=== PATIENT | male | born 1960 | race Caucasian/White ===

== ENCOUNTER 2017-04-29 10:16 | Outpatient (RCR) | payer MEDICARE, MEDICAID, SELFPAY ==
--- NOTE | 2017-04-29 11:05 | HP.PTEVAL_ITS ---
Patient's Visit Information EMILY FERNÁNDEZ is a 57 year old M referred to Physical Therapy by Maribell ALVES with a diagnosis of CP. Date of Evaluation: 04/29/17 Physical Therapist: Chaya Vitale - Visit Plan Frequency: 1x/Week Plan: w/c evaluation - Subjective Subjective: Has had an evaluation already and they lost the paperwork so he needs to be able to do it again. Patient reports that the last time he was actually walking was 6 years ago and not I. Has always used a w/c as main mode of transportation. [employer] has been out to measure him for his chair. Patient transfers using a lift at home but would like to get back to doing them I. Does not stand for transfers. Can roll to help with assistance for hygeine. Spends 10-12 hours a day in this current w/c. He is getting sores on the left LE secondary to rubbing on the foot plate. Nursing and home health aides that come to the house. Has help 8-4 and 7-11 every day. They do all the transfers, showers, fix meals, pretty much take good care of you. Apartment that is w/c accessible- roll in shower- has a w/c accesible van that his drives. Patient has not driven in 5 plus years. Does not have pressure sores currently but is prone to them. Does have feeling and can adjust. Patient can roll himself unless he is going up hill. Goes to congregation on Sundays and back and forth to [facility] [employer]. Occasionally go to [facility] and 1x a month or 1x every 6 weeks to [facility]. Scoots his legs off the chair to use the restroom. No pain. 5'4 230lbs - Objective Posture: FH, RS. Increased kyphosis- pt slumps to the right- when asked to lock his left w/c break patient had significant difficulty righting himself to reach the break. Gait: pt is non ambulatory- has not ambulated since 2011 (therapy 5 steps with // bars) w/c has always been primary mode of transportation. Transfers: lift at home- unable to stand. ROM: Trunk: WFL Hip: WFL Knee: right : wfl Left 20-100 degrees ankle: DF: left 5 degrees from neutral, right: neutral. Strength: Core: poor LE: 2+/5 throughout hip/ankle/knee- trace amount but not functional. Left leg doesnt extend- more movement in the left hip. can get flat- - Goals Goal 1:: Patient will be I with w/c Goal Time Frame: 4-6 Weeks - Rehabilitation Potential Physical Therapy Diagnosis: Patient presents with hypmobility- his chair is unsafe and does not fit him anymore- would be appropriate for a new w/c - Anticipated Interventions Assistive Devices: Wheelchair Thank you for the opportunity to evaluate your patient. For Medicare and Medicare HMO plans, please review the plan of care and approve it. It will need to be FAXED BACK to us at [phone] for Medicare purposes. Please let me know if there are questions or concerns regarding this plan of care. Physician Signature: Date:
--- NOTE | 2017-06-01 10:58 | HP.PTDCSUM ---
HP - PT D/C Summary It has been my pleasure to treat EMILY FERNÁNDEZ under orders from DR.KFEARO Lizzie for the diagnosis of CP for a total of 1 visit(s). Discharge Date: Please see the following information for a summary of their discharge status. - Goals Goal 1:: Patient will be I with w/c Goal Progress: Progressing - Plan Plan: w/c evaluation - D/C Information If there are questions or concerns regarding this patient's physical therapy, please feel free to call me at [phone]. Thank you for the referral of this patient. Sincerely, Chaya Vitale
== END 2017-04-29 19:00 | disposition home or self-care (01) ==
LOC: PT 10:16
PROVIDERS: Family Provider Internal Medicine; PCP Internal Medicine; Visit Provider Internal Medicine
DX: G80.9 Cerebral palsy, unspecified (principal)
CPT/HCPCS: 97162; G8978

== ENCOUNTER 2017-08-18 16:16 | Inpatient (IN) | payer MEDICARE, MEDICAID, SELFPAY ==
[2017-08-18] VITALS (9 sets, daily range): BP systolic 106–121; BP diastolic 55–59; PULSE 102–133; RESP 18–28; TEMP 36.9–39.2; O2SAT 91–96; BMI 48.1; BMI 46.6
--- NOTE | 2017-08-18 16:52 | RAD_ITS ---
STUDY: X-RAY CHEST REASON FOR EXAM: Male, 57 years old. Fever and shortness of breath TECHNIQUE: Single frontal view of the chest. COMPARISON: November 25, 2015 FINDINGS: Lungs are clear except for bibasilar subsegmental atelectasis. There is no demonstrated pleural abnormality. Normal size heart. Normal mediastinum and cassidy. Normal visualized pulmonary arteries. Normal visualized aortic arch and descending thoracic aorta. Normal visualized thoracic spine. Normal visualized ribs, clavicles, and shoulders. There is no demonstrated abnormality of the visualized soft tissue structures of the upper abdomen. RAD/Chest 1 View (Portable) IMPRESSION: Bibasilar subsegmental atelectasis Electronically Signed: Cameron Singh MD at 17:35 EDT , Service support ,
--- NOTE | 2017-08-18 16:52 | EKG12_ITS ---
Test Reason : UTI Blood Pressure : / mmHG Vent. Rate : 122 BPM Atrial Rate : 122 BPM P-R Int : 122 ms QRS Dur : 072 ms QT Int : 298 ms P-R-T Axes : 019 076 013 degrees QTc Int : 424 ms Sinus tachycardia Low voltage QRS Borderline ECG Confirmed by LATA BANKS MD ([id number]), content editor HANNAH QUINTANA ([id number]) on 08/21/2017 9:07:26 AM Referred By: NANI Confirmed By:LATA BANKS MD
[2017-08-18 17:15] LABS: Absolute Lymphocyte Count 0.47 X10^3/ul (0.83-4.51); Absolute Neutrophil Count 14.7 X10^3/uL (2.0-7.7); Basophil# 0.01 X10^3/uL; Basophil% 0.1 % (0-1); Hematocrit 43.5 % (40-54); Lymphocyte # 0.47 X10^3/ul (4.0); Lymphocyte % 2.9 % (19-41); Mean Corp Hgb Conc 34.5 g/gl (32-36); Mean Corpuscular Volume 89.9 fL (80-94); Monocyte# 0.78 X10^3/uL; Monocyte% 4.9 % (0-10); Neutrophil # 14.65 X10^3/uL (2.7-7.7); Neutrophil % 91.9 % (47-70); Platelet Count 131 K/mm3 (150-450); RBC Distribution Width CV 16.7 % (11.6-14.6); RBC Distribution Width SD 53.3 fl (35.1-43.9); Red Blood Count 4.84 M/mm3 (4.6-6.2); White Blood Count 15.9 K/mm3 (4.4-11.0)
[2017-08-18 17:16] LABS: International Normalized Ratio 1.8; Prothrombin Time (Protime)PT. 21.3 SECONDS (11.7-14.9)
[2017-08-18 17:17] LABS: Partial Thromboplast Time 46.2 Seconds (24.1-36.2)
[2017-08-18 17:23] LABS: ALB/GLOB Ratio 0.8 RATIO (0.9-2.4); AST(SGOT) 21 U/L (15-37); Alanine Aminotransfer ALT/SGPT 33 U/L (16-61); Albumin, Serum 3.1 g/dL (3.2-5.0); Alkaline Phosphatase 67 U/L (45-117); Anion Gap 10 (5-15); BUN 11 mg/dL (7-18); BUN/Creat Ratio 12.4 RATIO (10-20); Calcium,Total 8.6 mg/dL (8.5-10.1); Chloride 109 mmol/L (98-107); Creatinine, Serum 0.89 mg/dL (0.70-1.30); Differential Indicated SCAN CRITERIA MET; EST Glomerular Filtration Rate 94 mL/min (>60); Est Glom Filt Rate - Afr Amer 114 mL/min (>60); Estimated Creatinine Clearance 78.53 ml/min; Globulin 3.9 g/dL (2.2-4.2); Glucose 111 mg/dL (74-106); POSITIVE COUNT NO; POSITIVE DIFFERENTIAL YES; POSITIVE MORPHOLOGY NO; Potassium 3.4 mmol/L (3.5-5.1); Sodium Level 143 mmol/L (136-145)
[2017-08-18] MEDS: 0.9% Normal Saline 1,000 ML 250 ML IV (17:35)
--- NOTE | 2017-08-18 17:35 | ED.RN ---
pt lactic 2.5 dr matson
[2017-08-18 17:40] LABS: Lactic Acid 2.5 mmol/L (0.4-2.0)
[2017-08-18 17:45] LABS: Color, Urine Yellow (Yellow); Glucose, Dipstick Normal (Normal); Ketone-Dipstick 15 mg/dl (Negative); Leukocyte Esterase-Dipstick 500 /ul (Negative); Mucous, Urine 0 SEEN /hpf (<or=2+); Nitrite-Dipstick Positive (Negative); Occult Blood-Urine 150 /ul (Negative); Protein-Dipstick 30 mg/dl (Negative); Urine Bilirubin Dipstick Negative (Negative); Urine Clarity Cloudy (Clear); Urine Urobilinogen 4 mg/dl (Normal); Urine pH 6.5 (5.0 - 8.0)
[2017-08-18 17:48] LABS: Differential Comment SCANNED
[2017-08-18 17:53] LABS: Bacteria 3+ /hpf (None Seen); Red Blood Cells-Urine 10-25 SEEN /hpf (0-5); Squamous Epithelial Cells - UA 5-10 SEEN /hpf (0-5); White Blood Cells >100 SEEN /hpf (0-5)
[2017-08-18 17:54] LABS: Amorphous Sediment 1+ URATE
[2017-08-18] MEDS: Ceftriaxone 1 GM/50 mL Premix x1 IV (18:19)
--- NOTE | 2017-08-18 19:02 | ED.VISSUMM ---
- ER Visit Summary Date of Service: 08/18/17 Chief Complaint: Fever weakness, cough shortness of breath History of Present Illness: The patient is a 57 M with the above complaints that started earlier in the day. He was seen by his PCP did not feel so bad and was diagnosed with a urinary tract infection. The shortness of breath and cough started after that. No abdominal pain. No back pain. No neck pain. This gentleman has cerebral palsy and is bedbound. Physical Examination: Appears in some distress, slightly diaphoretic. Cerebral palsy features. Regular rate. Tachycardic. He has coarse bibasilar breath sounds. He has a soft obese abdomen. He has no skin rash. He has a supple neck. Emergency Department Course and Treatment: Patient is found to have a urinary tract infection with a fever this leads me to believe that this is pyelonephritis he has no flank pain to indicate kidney stones. Chest x-ray does not show pneumonia but because of the hypoxia and cough I did treat him for community acquired pneumonia. His tachycardia has slightly improved. I will admit him for further workup as well as IV antibiotics. Disposition: Admit in improved condition Impression: Pyelonephritis This note was generated with [employer] dictation software. It may contain incorrect words, spelling, and punctuation that were not noted in review of the chart prior to signing ED Disposition - Plan for ED Patient: Chief Complaint: Shortness of Breath
--- NOTE | 2017-08-18 20:39 | PCM.HP.STD ---
Problem List (1) Supratherapeutic INR Status: Resolved (2) Hypomagnesemia Status: Resolved (3) Hypophosphatemia Status: Resolved (4) HTN (hypertension) Status: Chronic (5) Recurrent deep venous thrombosis Status: Chronic (6) Hyperlipidemia Status: Chronic (7) Pulmonary embolism Status: Chronic (8) Status post laparoscopic cholecystectomy Status: Chronic History of Present Illness Date of Admission: 08/18/17 Chief Complaint: Fever and generalized weakness The patient is a 57 year old M with past medical history of cerebral palsy, recurrent DVT and PEs, essential hypertension, urinary tract infections who was diagnosed with acute cystitis as an outpatient by his primary care physician and prescribed Macrobid but he did not improve he presented to the emergency room today due to fever and generalized weakness , he also reported shortness of breath and cough. Repeat urinalysis in the ED revealed significant pyuria consistent with urinary tract infection, he was noted to be hypoxic with pulse oximetry in the lower 90s at rest chest x-ray revealed bilateral atelectasis but no evidence of pneumonia or congestive heart failure or pleural effusion. He denies any chest pain, hemoptysis, rapid heartbeat or dizziness. Given his cough and mild hypoxia as well as mild tachycardia the patient was given empiric treatment of IV Rocephin and Zithromax for possible pneumonia. Past Medical History Past Medical History (Chronic Problems): Chronic Problems Sleep-disordered breathing (Chronic) UTI (urinary tract infection) (Chronic) Cerebral palsy (Chronic) HTN (hypertension) (Chronic) Recurrent deep venous thrombosis (Chronic) Hyperlipidemia (Chronic) Pulmonary embolism (Chronic) Status post laparoscopic cholecystectomy (Chronic) Allergies No Known Allergies Allergy (Verified 08/18/17 19:52) Home Medications: Ambulatory Orders Medication Instructions Recorded Atenolol [Tenormin (beta kartik)] 25 mg PO BID 08/12/14 Baclofen 40 mg PO BID 08/12/14 Ergocalciferol [Vitamin D] 50,000 unit PO WE 08/12/14 Omeprazole [Prilosec] 40 mg PO DAILY 08/12/14 Pravastatin [Pravachol] 40 mg PO QHS 08/12/14 Lisinopril [Zestril] 40 mg PO BID 08/01/15 Albuterol Inhaler [Ventolin Hfa] 2 puff INHALATION Q4H PRN PRN #1 08/31/15 inhaler Nystatin [Mycostatin] 1 applic TOPICAL PRN PRN 09/14/15 Tizanidine HCl 4 mg PO BID PRN PRN 09/15/15 Acetaminophen [Tylenol Tablet] 650 mg PO Q4H PRN PRN #0 tablet 11/29/15 Tamsulosin HCl [Flomax] 0.4 mg PO DAILY@1730 01/11/17 Warfarin [Coumadin] 6 mg PO SUTUTHSA 01/11/17 Citalopram [Celexa] 5 mg PO QHS 08/18/17 Desoximetasone 0.25% [Topicort Crm 1 applic TOPICAL DAILY PRN PRN 08/18/17 0.25%] Nitrofurantoin Macrocrystals 100 mg PO BID 08/18/17 [Macrobid] Triamcinolone 0.5% Cream [Kenalog] 1 applicatio TOPICAL DAILY PRN PRN 08/18/17 Warfarin [Coumadin (PBKC)] 5 mg PO MOWEFR 08/18/17 Surgical History: appendectomy, - - Multiple hip and bilateral extremity surgeries for contractures because of cerebral palsy. Psychiatric History: No pertinent psych hx Smoking Status: Former smoker - *Family History Maternal History Items: No pertinent history Paternal History Items: No pertinent history Review of Systems Comment: All Systems were reviewed with pertinent positives mentioned in the HPI above. VTE Information - Inpt Only VTE Present on Admission: No VTE Mechan Device Prophylaxis: SCD's VTE Pharm Prophylaxis ordered?: Yes - Physical Exam General: Alert, Oriented x3 HEENT: Atraumatic Neck: Supple, No JVD Lungs: Clear to auscultation Cardiovascular: Regular rate, Normal S1, Normal S2 Abdomen: Bowel Sounds Present, Non Tender, Non-Distended Extremities: No edema Vital Signs Temp Pulse Resp BP Pulse Ox 98.4 F 105 H 18 121/57 H 96 08/18/17 19:59 08/18/17 19:59 08/18/17 19:59 08/18/17 19:59 08/18/17 19:59 Oxygen Flow Rate (L/min) 2 Oxygen Delivery Method Room Air Weight: 123.2 kg Body Mass Index (BMI) 46.6 Assessment/Plan All Active Problems Hypokalemia (Acute) Hyponatremia (Acute) Supratherapeutic INR (Resolved) Hypomagnesemia (Resolved) Hypophosphatemia (Resolved) Acute delirium (Acute) Rhinitis (Acute) Dehydration (Acute) Sepsis (Acute) Clostridium difficile enterocolitis (Acute) 1. Acute cystitis; place him on IV Rocephin and follow urine cultures He has had recurrent cystitis , I will obtain a PSA and a urogenital ultrasound to rule out any anatomic abnormality. 2. Hypoxia; giving his tachycardia and his history of PE subtherapeutic INR and obtain CT angiogram of the chest to rule out an acute PE. 3. Essential hypertension; we will restart his atenolol. 4. GERD; he is on a PPI. 5. ? Pneumonia; I see no evidence of pneumonia at this time. Will discontinue community-acquired pathway antibiotics. Code Visit Inpatient E&M: 66251 Init Hosp L3
--- NOTE | 2017-08-18 20:52 | CT_ITS ---
STUDY: CTA CHEST REASON FOR EXAM: Male, 57 years old. Chest x-ray from today. And CTA chest August 16, 2014 RADIATION DOSAGE (If Supplied By Facility): CTDIvol = ( 25.04 ) mGy, DLP = ( 839.19 ) mGycm TECHNIQUE: The examination was performed with the intravenous administration of 100ML ml of Isovue 370 contrast material. Post-processing of the angiographic images was performed, with multiplanar reformation and 3D reconstruction. Individualized dose optimization techniques were used for this CT. COMPARISON: August 16, 2014 FINDINGS: Normal enhancement of the main pulmonary artery and right and left pulmonary arteries. Normal enhancement of the bilateral peripheral pulmonary arteries. There is no demonstrated pulmonary embolism. Normal thoracic aorta and visualized great vessels. There is no demonstrated aortic dissection. Normal heart and pericardium. Mild cardiomegaly. Normal mediastinum. Normal hilar regions. Normal visualized trachea and bronchi. The lungs are well expanded. Normal pulmonary parenchyma. Normal pleura. Normal chest wall structures. Normal osseous structures. Normal visualized upper abdomen. CT/CTA Chest W/WO Contrast IMPRESSION: Normal CTA chest examination, without a demonstrated pulmonary embolism or arterial dissection. Electronically Signed: Cameron Singh MD at 23:07 EDT , Service support ,
--- NOTE | 2017-08-18 20:55 | US_ITS ---
STUDY: RENAL ULTRASOUND - COMPLETE REASON FOR EXAM: Male, 57 years old. Left flank pain TECHNIQUE: Ultrasound evaluation of the kidneys was performed with real-time and static martinez-scale imaging. COMPARISON: November 21, 2015 FINDINGS: RIGHT KIDNEY: Normal location of the right kidney, which is normal in size. The right kidney measures 11.4 cm. There is a normal cortex of the right kidney. The renal cortex measures 1.5 cm. There is no right renal mass or cyst. There are no right renal calculi. There is no right hydronephrosis. DISTAL RIGHT URETER: There is non-visualization of the distal right ureter. There is no demonstrated right ureterovesical junction calculus. There is a non- visualized right ureteral jet. LEFT KIDNEY: Normal location of the left kidney, which is normal in size. The left kidney measures 11.8 cm. There is a normal cortex of the left kidney. The renal cortex measures 1.8 cm. There is no left renal mass or cyst. There are no left renal calculi. There is no left hydronephrosis. DISTAL LEFT URETER: There is non-visualization of the distal left ureter. There is no demonstrated left ureterovesical junction calculus. There is a non- visualized left ureteral jet. BLADDER: The distended urinary bladder has a volume of 190 ml. There is a normal wall thickness of the distended urinary bladder. There is no demonstrated mass within the urinary bladder. There are no demonstrated bladder calculi. US/Kidney and Bladder IMPRESSION: Normal ultrasound of the kidneys and urinary bladder. Electronically Signed: Cameron Singh MD at 22:12 EDT , Service support ,
[2017-08-18 21:04] LABS: Reflex Lactate? Y
[2017-08-18 22:04] LABS: Lactic Acid 1.3 mmol/L (0.4-2.0)
--- NOTE | 2017-08-18 22:05 | NURSING ---
Pt requests to not have HS meds until after 23:00.
[2017-08-18] MEDS: Tamsulosin HCl 0.4 MG Capsule PO (23:38)
[2017-08-18] MEDS: Lisinopril 20 MG Tablet 40 MG PO (23:38)
[2017-08-18] MEDS: Baclofen 10 MG Tablet 40 MG PO (23:39)
[2017-08-18] MEDS: Pravastatin 40 MG Tablet PO (23:39)
[2017-08-18] MEDS: Citalopram 10 MG Tablet 5 MG PO (23:39)
[2017-08-18] MEDS: Atenolol 25 MG Tablet PO (23:40)
[2017-08-19] VITALS (12 sets, daily range): BP systolic 125–147; BP diastolic 65–92; PULSE 91–104; RESP 16–22; TEMP 36.8–37.4; O2SAT 95–97
[2017-08-19] MEDS: 0.9% Normal Saline 1,000 ML 250 ML IV (00:49)
[2017-08-19 05:45] LABS: International Normalized Ratio 1.8; Prothrombin Time (Protime)PT. 21.3 SECONDS (11.7-14.9)
[2017-08-19 05:55] LABS: Anion Gap 9 (5-15); BUN 7 mg/dL (7-18); BUN/Creat Ratio 11.9 RATIO (10-20); Calcium,Total 8.2 mg/dL (8.5-10.1); Chloride 111 mmol/L (98-107); Creatinine, Serum 0.59 mg/dL (0.70-1.30); EST Glomerular Filtration Rate 152 mL/min (>60); Est Glom Filt Rate - Afr Amer 184 mL/min (>60); Estimated Creatinine Clearance 118.46 ml/min; Glucose 104 mg/dL (74-106); Potassium 3.9 mmol/L (3.5-5.1); Sodium Level 143 mmol/L (136-145)
[2017-08-19] MEDS: 0.9% Normal Saline 1,000 ML 100 ML IV ×2 (10:21→18:46)
[2017-08-19] MEDS: Baclofen 10 MG Tablet 40 MG PO ×2 (10:22→22:59)
[2017-08-19] MEDS: Pantoprazole Sodium 40 MG Tablet PO (10:23)
[2017-08-19] MEDS: Atenolol 25 MG Tablet PO ×2 (10:23→22:59)
[2017-08-19] MEDS: Lisinopril 20 MG Tablet 40 MG PO ×2 (10:23→22:59)
[2017-08-19] MEDS: Ceftriaxone 1 GM/50 ML BAG IV (10:51)
--- NOTE | 2017-08-19 11:13 | CASEMGMT ---
Face to Face with patient for initial transition planning/care coordination assessment. RN TEJINDER introduced self and role at [facility], pt voices understanding and consents to assessment at this time. Pt is sitting up in bed in no distress at this time. Pt is A/O x4 at this time and answers all questions appropriately at this time. Care providers, pharmacy, and demographics verified. See attached link. Pt voices no further concerns/needs at this time. Advised pt to ask for CM if any further questions/concerns/needs arise, voices understanding. CM to follow for any further discharge planning/needs. PLAN: [place] [facility]
--- NOTE | 2017-08-19 13:44 | PCM.PROGNOTE ---
<Bonnie Sanders - Last Filed: 08/19/17 14:10> Subjective: Patient seen and examined. No acute events overnight. Denies fever, chills. Denies nausea, vomiting. Denies dysuria, flank pain. Denies further shortness of breath. No other complaints at this time. - Physical Exam General: Alert, Oriented x3, Cooperative, No apparent distress HEENT: Atraumatic, PERRLA, EOMI, Normocephalic Neck: Supple, No JVD, Negative Carotid Bruits Lungs: Clear to auscultation, Diminished Cardiovascular: Regular rate, Regular Rhythm, Normal S1, Normal S2, No murmurs Abdomen: Bowel Sounds Present, Soft, Non Tender, Non-Distended, Obese Extremities: No clubbing, No cyanosis, Edema - Chronic lymphedema bilateral lower extremities Skin: No rashes, No breakdown Musculoskeletal: No Tenderness to Palpation of Joints or Extremities Neurological: Cranial nerves II-XII grossly intact, Neuro grossly intact Psych/Mental Status: Normal Affect, Appropriate Vital Signs Temp Pulse Resp BP Pulse Ox 98.2 F 103 H 16 131/73 H 95 08/19/17 10:20 08/19/17 11:00 08/19/17 10:20 08/19/17 10:20 08/19/17 10:20 Oxygen Flow Rate (L/min) 2 Oxygen Delivery Method Room Air Weight: 123.2 kg Body Mass Index (BMI) 46.6 Intake and Output for Last 24 Hours 08/17/17 08/18/17 08/19/17 23:59 23:59 23:59 Intake Total 1339 / 1339 1764 / 1764 Output Total 450 / 450 1050 / 1050 Balance 889 / 889 714 / 714 Laboratory Tests Past 24 Hrs 08/18/17 08/19/17 08/19/17 21:28 05:20 05:20 PT 21.3 H INR 1.8 Sodium 143 Potassium 3.9 Chloride 111 H Carbon Dioxide 23.0 Anion Gap 9 BUN 7 Creatinine 0.59 L Estim Creat Clear Calc 118.46 Est GFR (MDRD) Af Amer 184 Est GFR (MDRD) Non-Af 152 BUN/Creatinine Ratio 11.9 Glucose 104 Lactic Acid 1.3 Calcium 8.2 L Medical Necessity - Tobacco Use Smoking Status: Former smoker Assessment/Plan All Active Problems Hypokalemia (Acute) Hyponatremia (Acute) Supratherapeutic INR (Resolved) Hypomagnesemia (Resolved) Hypophosphatemia (Resolved) Acute delirium (Acute) Rhinitis (Acute) Dehydration (Acute) Sepsis (Acute) Clostridium difficile enterocolitis (Acute) Patient is a 57-year-old male admitted 08/18/2017 due to fever, generalized weakness. He has a past medical history of cerebral palsy, recurrent DVT/PE, hypertension, recurrent UTI, hyperlipidemia, BPH, GERD, depression, history of C. difficile. 1. Severe sepsis, present on admission secondary to acute suspected gram-negative cystitis, failed outpatient antibiotic therapy with Macrobid-associated gram-negative bacteremia. (Tachycardia, leukocytosis, lactic acid 2.5, fever 102.6 on admission) urinalysis positive. Obtain urine culture, not sent on admission. Previous urine cultures positive for ESBL klebsiella pneumoniae and Pseudomonas. Continue IV Rocephin. Patient's PSA is elevated at 15.7. She has been seen by infectious disease, Dr. odell in 2016. Klebsiella thought to be possibly secondary to colonization at that time. Patient also states he has followed up with urology as outpatient in the past. Recommend follow-up with urology at discharge regarding elevated PSA and recurrent UTIs. Renal ultrasound completed which showed normal ultrasound of the kidneys and urinary bladder. 2. Shortness of breath-CTA of chest without evidence of pulmonary embolism or arterial dissection. Pneumonia ruled out. Patient denies further shortness of breath. 3. History of severe C. difficile colitis in 2016 following antibiotic treatment for UTI. 4. Physical debility secondary to cerebral palsy- PT/OT. Patient is wheelchair-bound. Has 8 services at home and denies further needs. 5. Chronic lymphedema-Quique wrap bilateral lower extremities. Patient states he has lymphedema pumps at home he uses 3 times daily. 6. Hypertension-stable, continue home lisinopril, atenolol regimen. 7. Hyperlipidemia-continue statin. 8. BPH-continue home Flomax regimen. 9. GERD-continue PPI. 10. Depression-continue home Celexa regimen. 11. History of DVT/PE-INR currently subtherapeutic. 12. Morbid obesity-nutrition consult. Encourage diet modifications. DVT prophylaxis-Coumadin. This patient was seen by CARLOS Bucio under the supervision of Dr. Colbert. <Michel Colbert - Last Filed: 08/19/17 14:24> - Physical Exam General: Alert, No apparent distress HEENT: Atraumatic Lungs: Clear to auscultation, Normal air movement, No rhonchi, No wheeze Cardiovascular: Regular rate, Regular Rhythm, Normal S1, Normal S2, No murmurs Abdomen: Bowel Sounds Present, Soft, Non Tender, Non-Distended Extremities: No clubbing, No cyanosis Psych/Mental Status: Normal Affect, Appropriate Vital Signs Temp Pulse Resp BP Pulse Ox 36.8 C 103 H 16 131/73 H 95 08/19/17 10:20 08/19/17 11:00 08/19/17 10:20 08/19/17 10:20 08/19/17 10:20 Oxygen Flow Rate (L/min) 2 Oxygen Delivery Method Room Air Weight: 123.2 kg Body Mass Index (BMI) 46.6 Intake and Output for Last 24 Hours 08/17/17 08/18/17 08/19/17 23:59 23:59 23:59 Intake Total 1339 / 1339 1764 / 1764 Output Total 450 / 450 1050 / 1050 Balance 889 / 889 714 / 714 Laboratory Tests Past 24 Hrs 08/18/17 08/19/17 08/19/17 21:28 05:20 05:20 PT 21.3 H INR 1.8 Sodium 143 Potassium 3.9 Chloride 111 H Carbon Dioxide 23.0 Anion Gap 9 BUN 7 Creatinine 0.59 L Estim Creat Clear Calc 118.46 Est GFR (MDRD) Af Amer 184 Est GFR (MDRD) Non-Af 152 BUN/Creatinine Ratio 11.9 Glucose 104 Lactic Acid 1.3 Calcium 8.2 L Assessment/Plan Patient seen and examined independently. Data reviewed. I agree with the above note by the nurse practitioner. 1. Severe sepsis Present on admission. Due to UTI and bacteremia Lactic acidosis resolved 2. UTI Patient has a urinary tract infections 3-4 times per year. Last hospitalized for urinary tract infection about 2 years ago. Patient has had a history of drug-resistant organisms but seems to be improving with Rocephin at this time. Urine culture was not done initially has been ordered may come back negative given the previous antibiotic exposure he has had thus far during this admission Patient had been seeing a urologist before but that urologist has moved away and has not followed up in years. I recommend to get reestablished with the urologist an anatomical reason for having frequent urinary tract infections. Patient does not self catheterize nor use a Sales catheter and states that he feels that he completely voids his bladder when he urinates. 3. Bacteremia Preliminary showing gram-negative didi. Presumably is due to the patient's urinary tract infection Repeat blood cultures have been ordered Code Visit Inpatient E&M: 34174 Subs Hosp L2
--- NOTE | 2017-08-19 14:08 | PN_ITS ---
<Bonnie Sanders - Last Filed: 08/19/17 14:10> Subjective: Patient seen and examined. No acute events overnight. Denies fever, chills. Denies nausea, vomiting. Denies dysuria, flank pain. Denies further shortness of breath. No other complaints at this time. - Physical Exam General: Alert, Oriented x3, Cooperative, No apparent distress HEENT: Atraumatic, PERRLA, EOMI, Normocephalic Neck: Supple, No JVD, Negative Carotid Bruits Lungs: Clear to auscultation, Diminished Cardiovascular: Regular rate, Regular Rhythm, Normal S1, Normal S2, No murmurs Abdomen: Bowel Sounds Present, Soft, Non Tender, Non-Distended, Obese Extremities: No clubbing, No cyanosis, Edema - Chronic lymphedema bilateral lower extremities Skin: No rashes, No breakdown Musculoskeletal: No Tenderness to Palpation of Joints or Extremities Neurological: Cranial nerves II-XII grossly intact, Neuro grossly intact Psych/Mental Status: Normal Affect, Appropriate Vital Signs Temp Pulse Resp BP Pulse Ox 98.2 F 103 H 16 131/73 H 95 08/19/17 10:20 08/19/17 11:00 08/19/17 10:20 08/19/17 10:20 08/19/17 10:20 Oxygen Flow Rate (L/min) 2 Oxygen Delivery Method Room Air Weight: 123.2 kg Body Mass Index (BMI) 46.6 Intake and Output for Last 24 Hours 08/17/17 08/18/17 08/19/17 23:59 23:59 23:59 Intake Total 1339 / 1339 1764 / 1764 Output Total 450 / 450 1050 / 1050 Balance 889 / 889 714 / 714 Laboratory Tests Past 24 Hrs 08/18/17 08/19/17 08/19/17 21:28 05:20 05:20 PT 21.3 H INR 1.8 Sodium 143 Potassium 3.9 Chloride 111 H Carbon Dioxide 23.0 Anion Gap 9 BUN 7 Creatinine 0.59 L Estim Creat Clear Calc 118.46 Est GFR (MDRD) Af Amer 184 Est GFR (MDRD) Non-Af 152 BUN/Creatinine Ratio 11.9 Glucose 104 Lactic Acid 1.3 Calcium 8.2 L Medical Necessity - Tobacco Use Smoking Status: Former smoker Assessment/Plan All Active Problems Hypokalemia (Acute) Hyponatremia (Acute) Supratherapeutic INR (Resolved) Hypomagnesemia (Resolved) Hypophosphatemia (Resolved) Acute delirium (Acute) Rhinitis (Acute) Dehydration (Acute) Sepsis (Acute) Clostridium difficile enterocolitis (Acute) Patient is a 57-year-old male admitted 08/18/2017 due to fever, generalized weakness. He has a past medical history of cerebral palsy, recurrent DVT/PE, hypertension, recurrent UTI, hyperlipidemia, BPH, GERD, depression, history of C. difficile. 1. Severe sepsis, present on admission secondary to acute suspected gram- negative cystitis, failed outpatient antibiotic therapy with Macrobid- associated gram-negative bacteremia. (Tachycardia, leukocytosis, lactic acid 2.5 , fever 102.6 on admission) urinalysis positive. Obtain urine culture, not sent on admission. Previous urine cultures positive for ESBL klebsiella pneumoniae and Pseudomonas. Continue IV Rocephin. Patient's PSA is elevated at 15.7. She has been seen by infectious disease, Dr. odell in 2016. Klebsiella thought to be possibly secondary to colonization at that time. Patient also states he has followed up with urology as outpatient in the past. Recommend follow-up with urology at discharge regarding elevated PSA and recurrent UTIs. Renal ultrasound completed which showed normal ultrasound of the kidneys and urinary bladder. 2. Shortness of breath-CTA of chest without evidence of pulmonary embolism or arterial dissection. Pneumonia ruled out. Patient denies further shortness of breath. 3. History of severe C. difficile colitis in 2016 following antibiotic treatment for UTI. 4. Physical debility secondary to cerebral palsy- PT/OT. Patient is wheelchair- bound. Has 8 services at home and denies further needs. 5. Chronic lymphedema-Quique wrap bilateral lower extremities. Patient states he has lymphedema pumps at home he uses 3 times daily. 6. Hypertension-stable, continue home lisinopril, atenolol regimen. 7. Hyperlipidemia-continue statin. 8. BPH-continue home Flomax regimen. 9. GERD-continue PPI. 10. Depression-continue home Celexa regimen. 11. History of DVT/PE-INR currently subtherapeutic. 12. Morbid obesity-nutrition consult. Encourage diet modifications. DVT prophylaxis-Coumadin. This patient was seen by CARLOS Bucio under the supervision of Dr. Colbert. <Michel Colbert - Last Filed: 08/19/17 14:24> - Physical Exam General: Alert, No apparent distress HEENT: Atraumatic Lungs: Clear to auscultation, Normal air movement, No rhonchi, No wheeze Cardiovascular: Regular rate, Regular Rhythm, Normal S1, Normal S2, No murmurs Abdomen: Bowel Sounds Present, Soft, Non Tender, Non-Distended Extremities: No clubbing, No cyanosis Psych/Mental Status: Normal Affect, Appropriate Vital Signs Temp Pulse Resp BP Pulse Ox 36.8 C 103 H 16 131/73 H 95 08/19/17 10:20 08/19/17 11:00 08/19/17 10:20 08/19/17 10:20 08/19/17 10:20 Oxygen Flow Rate (L/min) 2 Oxygen Delivery Method Room Air Weight: 123.2 kg Body Mass Index (BMI) 46.6 Intake and Output for Last 24 Hours 08/17/17 08/18/17 08/19/17 23:59 23:59 23:59 Intake Total 1339 / 1339 1764 / 1764 Output Total 450 / 450 1050 / 1050 Balance 889 / 889 714 / 714 Laboratory Tests Past 24 Hrs 08/18/17 08/19/17 08/19/17 21:28 05:20 05:20 PT 21.3 H INR 1.8 Sodium 143 Potassium 3.9 Chloride 111 H Carbon Dioxide 23.0 Anion Gap 9 BUN 7 Creatinine 0.59 L Estim Creat Clear Calc 118.46 Est GFR (MDRD) Af Amer 184 Est GFR (MDRD) Non-Af 152 BUN/Creatinine Ratio 11.9 Glucose 104 Lactic Acid 1.3 Calcium 8.2 L Assessment/Plan Patient seen and examined independently. Data reviewed. I agree with the above note by the nurse practitioner. 1. Severe sepsis * Present on admission. Due to UTI and bacteremia * Lactic acidosis resolved 2. UTI * Patient has a urinary tract infections 3-4 times per year. Last hospitalized for urinary tract infection about 2 years ago. * Patient has had a history of drug-resistant organisms but seems to be improving with Rocephin at this time. * Urine culture was not done initially has been ordered may come back negative given the previous antibiotic exposure he has had thus far during this admission * Patient had been seeing a urologist before but that urologist has moved away and has not followed up in years. I recommend to get reestablished with the urologist an anatomical reason for having frequent urinary tract infections. Patient does not self catheterize nor use a Sales catheter and states that he feels that he completely voids his bladder when he urinates. 3. Bacteremia * Preliminary showing gram-negative didi. Presumably is due to the patient's urinary tract infection * Repeat blood cultures have been ordered Code Visit Inpatient E&M: 11692 Subs Hosp L2
--- NOTE | 2017-08-19 15:56 | CASEMGMT ---
BREANA called patient's Garage Door Technician, Jackie Nelson and left her a voice mail letting her know that patient will be going home at d/c, but not today. Valeri REYNOSO
[2017-08-19] MEDS: Tamsulosin HCl 0.4 MG Capsule PO (16:27)
[2017-08-19] MEDS: Pravastatin 40 MG Tablet PO (22:59)
[2017-08-19] MEDS: Citalopram 10 MG Tablet 5 MG PO (22:59)
[2017-08-20] VITALS (10 sets, daily range): BP systolic 115–145; BP diastolic 61–83; PULSE 66–94; RESP 18–20; TEMP 36.9–37.5; O2SAT 93–97
[2017-08-20] MEDS: Lactulose 20 GM/30 ML UDC 30 GM PO (00:13)
[2017-08-20] MEDS: 0.9% Normal Saline 1,000 ML 100 ML IV ×2 (02:17→12:04)
[2017-08-20] MEDS: guaiFENesin Dm 10 ML UDC PO ×2 (04:59→15:27)
[2017-08-20 05:50] LABS: Hematocrit 40.9 % (40-54); Mean Corp Hgb Conc 34.2 g/gl (32-36); Mean Corpuscular Hgb 31.1 pg (27.0-32.0); Mean Corpuscular Volume 90.9 fL (80-94); Platelet Count 130 K/mm3 (150-450); RBC Distribution Width CV 16.7 % (11.6-14.6); White Blood Count 8.2 K/mm3 (4.4-11.0)
[2017-08-20 06:21] LABS: Scan Indicated on CBC? Y/N NO
[2017-08-20 06:56] LABS: International Normalized Ratio 1.7; Prothrombin Time (Protime)PT. 20.2 SECONDS (11.7-14.9)
[2017-08-20] MEDS: Lisinopril 20 MG Tablet 40 MG PO ×2 (09:53→22:33)
[2017-08-20] MEDS: Baclofen 10 MG Tablet 40 MG PO ×2 (09:53→22:33)
[2017-08-20] MEDS: Ceftriaxone 1 GM/50 ML BAG IV (09:53)
[2017-08-20] MEDS: Atenolol 25 MG Tablet PO ×2 (09:54→22:33)
[2017-08-20] MEDS: Pantoprazole Sodium 40 MG Tablet PO (09:54)
--- NOTE | 2017-08-20 12:14 | PCM.PN.HOSP ---
Patient Problems: Active and Suspected Problems Bacteremia (Acute) UTI (urinary tract infection) (Acute) Subjective: No new complaints. Vitals/I&O's: Vital Signs Temp Pulse Resp BP Pulse Ox 37.2 C 90 20 H 145/83 H 93 08/20/17 09:50 08/20/17 11:07 08/20/17 09:50 08/20/17 09:50 08/20/17 09:50 Oxygen Flow Rate (L/min) 2 Oxygen Delivery Method Room Air Weight: 123.2 kg Body Mass Index (BMI) 46.6 Intake and Output for Last 24 Hours 08/18/17 08/19/17 08/20/17 23:59 23:59 23:59 Intake Total 1339 / 1339 3691 / 3691 1856 / 1856 Output Total 450 / 450 1500 / 1500 400 / 400 Balance 889 / 889 2191 / 2191 1456 / 1456 General: Alert, No apparent distress HEENT: Atraumatic, Normocephalic Neck: No Nodes, Thyroid Normal Size and Texture Lungs: Clear to auscultation, Normal air movement, No rhonchi, No wheeze Cardiovascular: Regular rate, Regular Rhythm, Normal S1, Normal S2 Abdomen: Bowel Sounds Present, Soft, Non Tender, Non-Distended Extremities: No edema, No Calf Tenderness Psych/Mental Status: Normal Affect, Appropriate Laboratory Results 08/20/17 05:30: PT Cancelled, INR Cancelled 08/20/17 05:30: WBC 8.2, RBC 4.50 L, Hgb 14.0, Hct 40.9, MCV 90.9, MCH 31.1, MCHC 34.2, RDW 16.7 H, RDW Differential 55.0 H, Plt Count 130 L, MPV 11.0 08/20/17 06:34: PT 20.2 H, INR 1.7 Current Medications Acetaminophen (Tylenol) 650 mg PO Q4H PRN PRN PRN Reason: fever, pain Albuterol Sulfate (Ventolin Aerosols) 2.5 mg INHALATION Q4H PRN PRN PRN Reason: DYSPNEA Atenolol (Tenormin (Beta Rodrigo)) 25 mg PO BID [facility] Last Admin: 08/20/17 09:54 Dose: 25 mg Baclofen (Lioresal) 40 mg PO BID [facility] Last Admin: 08/20/17 09:53 Dose: 40 mg Citalopram Hydrobromide (Celexa) 5 mg PO QHS [facility] Last Admin: 08/19/17 22:59 Dose: 5 mg Ergocalciferol (Vitamin D) 50,000 unit PO We@0800 [facility] Last Admin: 08/19/17 10:22 Dose: 50,000 unit Guaifenesin (Robitussin Dm) 10 ml PO Q6H PRN PRN PRN Reason: COUGH Last Admin: 08/20/17 04:59 Dose: 10 ml Ceftriaxone Sodium (Rocephin) 1 gm in 50 mls @ 100 mls/hr IV Q24 [facility] Last Admin: 08/20/17 09:53 Dose: 100 mls/hr Sodium Chloride () 1,000 mls @ 100 mls/hr IV .Q10H [facility] Last Admin: 08/20/17 12:04 Dose: 100 mls/hr Lisinopril (Zestril) 40 mg PO BID [facility] Last Admin: 08/20/17 09:53 Dose: 40 mg Magnesium Hydroxide (Milk Of Magnesia) 30 ml PO DAILY PRN PRN PRN Reason: Constipation Pantoprazole Sodium (Protonix) 40 mg PO DAILY [facility] Last Admin: 08/20/17 09:54 Dose: 40 mg Pravastatin Sodium (Pravachol) 40 mg PO QHS [facility] Last Admin: 08/19/17 22:59 Dose: 40 mg Sodium Chloride () 5 - 30 ml IV UD PRN PRN Reason: SALINE FLUSH Tamsulosin HCl (Flomax) 0.4 mg PO DAILY@1730 [facility] Last Admin: 08/19/17 16:27 Dose: 0.4 mg Tizanidine HCl (Zanaflex) 4 mg PO BID PRN PRN PRN Reason: MUSCLE SPASM Warfarin Sodium (Coumadin (Pbkc)) 6 mg PO SuTuThSa@1700 [facility] Last Admin: 08/18/17 23:38 Dose: 6 mg Warfarin Sodium (Coumadin (Pbkc)) 5 mg PO MoWeFr@1700 [facility] Last Admin: 08/19/17 16:26 Dose: 5 mg Medical Necessity - Tobacco Use Smoking Status: Former smoker Assessment/Plan All Active Problems Bacteremia (Acute) UTI (urinary tract infection) (Acute) Hypokalemia (Acute) Hyponatremia (Acute) Supratherapeutic INR (Resolved) Hypomagnesemia (Resolved) Hypophosphatemia (Resolved) Acute delirium (Acute) Rhinitis (Acute) Dehydration (Acute) Sepsis (Acute) Clostridium difficile enterocolitis (Acute) 1. Severe sepsis Present on admission. Due to UTI and bacteremia Lactic acidosis resolved 2. UTI Patient has a urinary tract infections 3-4 times per year. Last hospitalized for urinary tract infection about 2 years ago. Patient has had a history of drug-resistant organisms but seems to be improving with Rocephin at this time. Urine culture was not done initially has been ordered may come back negative given the previous antibiotic exposure he has had thus far during this admission Patient had been seeing a urologist before but that urologist has moved away and has not followed up in years. I recommend to get reestablished with the urologist an anatomical reason for having frequent urinary tract infections. Patient does not self catheterize nor use a Sales catheter and states that he feels that he completely voids his bladder when he urinates. 3. Bacteremia Preliminary showing gram-negative didi. Presumably is due to the patient's urinary tract infection Repeat blood cultures are pending 4. DVT proph: on coumadin. Code Visit Inpatient E&M: 87701 Subs Hosp L2
--- NOTE | 2017-08-20 16:50 | CHAPLAIN ---
Type of Pastoral Visit _x__ Initial Visit ___ Follow-up Visit ___ On-call Visit ___ General Patient Visit ___ Spiritual Assessment ___ Family Conference ___ Bereavement ___ Rapid Response ___ Code Blue ___ Other (describe below) Pastoral Care Referral From _x__ Patient ___ Family ___ Nurse ___ Physician ___ Invoicing Specialist ___ Airplane Pilot Photogrammetry ___ Other (describe below) Sacrament/Intervention _x__ Active listening ___ Anointing ___ Orthodoxy ___ Bereavement ___ Communion ___ Cyndie exploration ___ _x__ Life review _x__ Prayer ___ Reconciliation ___ Sacrament of Sick ___ Supportive presence ___ Wedding ___ Other (describe below) Pastoral Comments
[2017-08-20] MEDS: Tamsulosin HCl 0.4 MG Capsule PO (17:33)
[2017-08-20] MEDS: 0.9% NaCl Peripheral Flush Adult/Peds IV (20:39)
[2017-08-20] MEDS: BENZOCAINE/MENTHOL 1 LOZENGE MUCOUS MEM ×2 (20:39→22:39)
[2017-08-20] MEDS: Citalopram 10 MG Tablet 5 MG PO (22:33)
[2017-08-20] MEDS: Pravastatin 40 MG Tablet PO (22:33)
[2017-08-21] MEDS: guaiFENesin Dm 10 ML UDC PO ×2 (00:23→10:23)
--- NOTE | 2017-08-21 01:26 | CPS ---
Set up pt's home CPAP unit
[2017-08-21 03:13] VITALS: BP 122/65; PULSE 68; RESP 14; TEMP 36.7; O2SAT 92
[2017-08-21 06:22] LABS: International Normalized Ratio 1.8; Prothrombin Time (Protime)PT. 20.8 SECONDS (11.7-14.9)
[2017-08-21] MEDS: Atenolol 25 MG Tablet PO (10:12)
[2017-08-21] MEDS: Lisinopril 20 MG Tablet 40 MG PO (10:12)
[2017-08-21] MEDS: Baclofen 10 MG Tablet 40 MG PO (10:13)
[2017-08-21] MEDS: Pantoprazole Sodium 40 MG Tablet PO (10:13)
[2017-08-21 10:18] VITALS: BP 106/72; PULSE 87; RESP 20; TEMP 36.6; O2SAT 94
[2017-08-21] MEDS: Ceftriaxone 1 GM/50 ML BAG IV (10:23)
--- NOTE | 2017-08-21 13:17 | PCM.PN.HOSP ---
Patient Problems: Active and Suspected Problems UTI (urinary tract infection) (Acute) Bacteremia (Acute) Subjective: Feels good. No complaints. Vitals/I&O's: Vital Signs Temp Pulse Resp BP Pulse Ox 36.6 C 87 20 H 106/72 94 08/21/17 10:18 08/21/17 10:18 08/21/17 10:18 08/21/17 10:18 08/21/17 10:18 Oxygen Flow Rate (L/min) 2 Oxygen Delivery Method Room Air Weight: 123.2 kg Body Mass Index (BMI) 46.6 Intake and Output for Last 24 Hours 08/19/17 08/20/17 08/21/17 23:59 23:59 23:59 Intake Total 3691 / 3691 2863 / 2863 500 / 500 Output Total 1500 / 1500 1450 / 1450 325 / 325 Balance 2191 / 2191 1413 / 1413 175 / 175 General: Alert, Cooperative, No apparent distress HEENT: Atraumatic, Normocephalic Oral: Moist Mucosa, No Gingival or Mucosal Lesions/ Ulcerations Microbiology Past 72 Hours 08/19/17 20:25 Urine, Catheterized Urine Culture - Preliminary Culture exhibits no growth. Laboratory Results 08/21/17 05:40: PT 20.8 H, INR 1.8 Current Medications Acetaminophen (Tylenol) 650 mg PO Q4H PRN PRN PRN Reason: fever, pain Albuterol Sulfate (Ventolin Aerosols) 2.5 mg INHALATION Q4H PRN PRN PRN Reason: DYSPNEA Atenolol (Tenormin (Beta Rodrigo)) 25 mg PO BID [facility] Last Admin: 08/21/17 10:12 Dose: 25 mg Baclofen (Lioresal) 40 mg PO BID [facility] Last Admin: 08/21/17 10:13 Dose: 40 mg Citalopram Hydrobromide (Celexa) 5 mg PO QHS [facility] Last Admin: 08/20/17 22:33 Dose: 5 mg Ergocalciferol (Vitamin D) 50,000 unit PO We@0800 [facility] Last Admin: 08/19/17 10:22 Dose: 50,000 unit Guaifenesin (Robitussin Dm) 10 ml PO Q6H PRN PRN PRN Reason: COUGH Last Admin: 08/21/17 10:23 Dose: 10 ml Ceftriaxone Sodium (Rocephin) 1 gm in 50 mls @ 100 mls/hr IV Q24 [facility] Last Admin: 08/21/17 10:23 Dose: 100 mls/hr Lisinopril (Zestril) 40 mg PO BID [facility] Last Admin: 08/21/17 10:12 Dose: 40 mg Magnesium Hydroxide (Milk Of Magnesia) 30 ml PO DAILY PRN PRN PRN Reason: Constipation Pantoprazole Sodium (Protonix) 40 mg PO DAILY [facility] Last Admin: 08/21/17 10:13 Dose: 40 mg Pravastatin Sodium (Pravachol) 40 mg PO QHS [facility] Last Admin: 08/20/17 22:33 Dose: 40 mg Sodium Chloride () 5 - 30 ml IV UD PRN PRN Reason: SALINE FLUSH Last Admin: 08/20/17 20:39 Dose: 10 ml Tamsulosin HCl (Flomax) 0.4 mg PO DAILY@1730 [facility] Last Admin: 08/20/17 17:33 Dose: 0.4 mg Throat Lozenges (Cepacol Sore Throat Lozenge) 1 lozenge MUCOUS MEM Q2H PRN PRN PRN Reason: COUGH Last Admin: 08/20/17 22:39 Dose: 1 lozenge Tizanidine HCl (Zanaflex) 4 mg PO BID PRN PRN PRN Reason: MUSCLE SPASM Warfarin Sodium (Coumadin (Pbkc)) 6 mg PO SuTuThSa@1700 [facility] Last Admin: 08/20/17 17:33 Dose: 6 mg Warfarin Sodium (Coumadin (Pbkc)) 5 mg PO MoWeFr@1700 [facility] Last Admin: 08/19/17 16:26 Dose: 5 mg Medical Necessity - Tobacco Use Smoking Status: Former smoker Assessment/Plan All Active Problems UTI (urinary tract infection) (Acute) Bacteremia (Acute) Hypokalemia (Acute) Hyponatremia (Acute) Supratherapeutic INR (Resolved) Hypomagnesemia (Resolved) Hypophosphatemia (Resolved) Acute delirium (Acute) Rhinitis (Acute) Dehydration (Acute) Sepsis (Acute) Clostridium difficile enterocolitis (Acute) 1. Severe sepsis Present on admission. Due to UTI and bacteremia Lactic acidosis resolved 2. UTI Patient has a urinary tract infections 3-4 times per year. Last hospitalized for urinary tract infection about 2 years ago. Urine culture negative, but was not done initially has been ordered may come back negative given the previous antibiotic exposure he has had thus far during this admission Patient had been seeing a urologist before but that urologist has moved away and has not followed up in years. I recommend to get reestablished with the urologist an anatomical reason for having frequent urinary tract infections. Patient does not self catheterize nor use a Sales catheter and states that he feels that he completely voids his bladder when he urinates. 3. Bacteremia E. coli pansensitive Presumably is due to the patient's urinary tract infection Repeat blood cultures negative discharge with Cipro 4. DVT proph: on coumadin.
--- NOTE | 2017-08-21 13:20 | PN_ITS ---
Patient Problems: Active and Suspected Problems UTI (urinary tract infection) (Acute) Bacteremia (Acute) Subjective: Feels good. No complaints. Vitals/I&O's: Vital Signs Temp Pulse Resp BP Pulse Ox 36.6 C 87 20 H 106/72 94 08/21/17 10:18 08/21/17 10:18 08/21/17 10:18 08/21/17 10:18 08/21/17 10:18 Oxygen Flow Rate (L/min) 2 Oxygen Delivery Method Room Air Weight: 123.2 kg Body Mass Index (BMI) 46.6 Intake and Output for Last 24 Hours 08/19/17 08/20/17 08/21/17 23:59 23:59 23:59 Intake Total 3691 / 3691 2863 / 2863 500 / 500 Output Total 1500 / 1500 1450 / 1450 325 / 325 Balance 2191 / 2191 1413 / 1413 175 / 175 General: Alert, Cooperative, No apparent distress HEENT: Atraumatic, Normocephalic Oral: Moist Mucosa, No Gingival or Mucosal Lesions/ Ulcerations Microbiology Past 72 Hours 08/19/17 20:25 Urine, Catheterized Urine Culture - Preliminary Culture exhibits no growth. Laboratory Results 08/21/17 05:40: PT 20.8 H, INR 1.8 Current Medications Acetaminophen (Tylenol) 650 mg PO Q4H PRN PRN PRN Reason: fever, pain Albuterol Sulfate (Ventolin Aerosols) 2.5 mg INHALATION Q4H PRN PRN PRN Reason: DYSPNEA Atenolol (Tenormin (Beta Rodrigo)) 25 mg PO BID [facility] Last Admin: 08/21/17 10:12 Dose: 25 mg Baclofen (Lioresal) 40 mg PO BID [facility] Last Admin: 08/21/17 10:13 Dose: 40 mg Citalopram Hydrobromide (Celexa) 5 mg PO QHS [facility] Last Admin: 08/20/17 22:33 Dose: 5 mg Ergocalciferol (Vitamin D) 50,000 unit PO We@0800 [facility] Last Admin: 08/19/17 10:22 Dose: 50,000 unit Guaifenesin (Robitussin Dm) 10 ml PO Q6H PRN PRN PRN Reason: COUGH Last Admin: 08/21/17 10:23 Dose: 10 ml Ceftriaxone Sodium (Rocephin) 1 gm in 50 mls @ 100 mls/hr IV Q24 [facility] Last Admin: 08/21/17 10:23 Dose: 100 mls/hr Lisinopril (Zestril) 40 mg PO BID [facility] Last Admin: 08/21/17 10:12 Dose: 40 mg Magnesium Hydroxide (Milk Of Magnesia) 30 ml PO DAILY PRN PRN PRN Reason: Constipation Pantoprazole Sodium (Protonix) 40 mg PO DAILY [facility] Last Admin: 08/21/17 10:13 Dose: 40 mg Pravastatin Sodium (Pravachol) 40 mg PO QHS [facility] Last Admin: 08/20/17 22:33 Dose: 40 mg Sodium Chloride () 5 - 30 ml IV UD PRN PRN Reason: SALINE FLUSH Last Admin: 08/20/17 20:39 Dose: 10 ml Tamsulosin HCl (Flomax) 0.4 mg PO DAILY@1730 [facility] Last Admin: 08/20/17 17:33 Dose: 0.4 mg Throat Lozenges (Cepacol Sore Throat Lozenge) 1 lozenge MUCOUS MEM Q2H PRN PRN PRN Reason: COUGH Last Admin: 08/20/17 22:39 Dose: 1 lozenge Tizanidine HCl (Zanaflex) 4 mg PO BID PRN PRN PRN Reason: MUSCLE SPASM Warfarin Sodium (Coumadin (Pbkc)) 6 mg PO SuTuThSa@1700 [facility] Last Admin: 08/20/17 17:33 Dose: 6 mg Warfarin Sodium (Coumadin (Pbkc)) 5 mg PO MoWeFr@1700 [facility] Last Admin: 08/19/17 16:26 Dose: 5 mg Medical Necessity - Tobacco Use Smoking Status: Former smoker Assessment/Plan All Active Problems UTI (urinary tract infection) (Acute) Bacteremia (Acute) Hypokalemia (Acute) Hyponatremia (Acute) Supratherapeutic INR (Resolved) Hypomagnesemia (Resolved) Hypophosphatemia (Resolved) Acute delirium (Acute) Rhinitis (Acute) Dehydration (Acute) Sepsis (Acute) Clostridium difficile enterocolitis (Acute) 1. Severe sepsis * Present on admission. Due to UTI and bacteremia * Lactic acidosis resolved 2. UTI * Patient has a urinary tract infections 3-4 times per year. Last hospitalized for urinary tract infection about 2 years ago. * Urine culture negative, but was not done initially has been ordered may come back negative given the previous antibiotic exposure he has had thus far during this admission * Patient had been seeing a urologist before but that urologist has moved away and has not followed up in years. I recommend to get reestablished with the urologist an anatomical reason for having frequent urinary tract infections. Patient does not self catheterize nor use a Sales catheter and states that he feels that he completely voids his bladder when he urinates. 3. Bacteremia * E. coli pansensitive * Presumably is due to the patient's urinary tract infection * Repeat blood cultures negative * discharge with Cipro 4. DVT proph: on coumadin.
--- NOTE | 2017-08-21 13:24 | PCM.DC ---
- Discharge Diagnoses Current Active Problems: Current Active and Chronic Problems UTI (urinary tract infection) (Acute) Bacteremia (Acute) You will use the following diet at home:: No restrictions Your food should be the consistency of: Regular Your liquids should be the consistency of: Regular/Thin Discharge Activity: - - activity as tolerated Call your doctor if you observe: Fever of 101 or Higher, Inability to urinate, Shortness of breath Allergies/Adverse Reactions: Allergies No Known Allergies Allergy (Verified 08/18/17 19:52) Medications to take at Discharge Atenolol [Tenormin (beta kartik)] 25 mg PO BID 08/12/14 Baclofen 40 mg PO BID 08/12/14 Ergocalciferol [Vitamin D] 50,000 unit PO WE 08/12/14 Omeprazole [Prilosec] 40 mg PO DAILY 08/12/14 Pravastatin [Pravachol] 40 mg PO QHS 08/12/14 Lisinopril [Zestril] 40 mg PO BID 08/01/15 Albuterol Inhaler [Ventolin Hfa] 2 puff INHALATION Q4H PRN PRN #1 inhaler 08/31/15 Nystatin [Mycostatin] 1 applic TOPICAL PRN PRN 09/14/15 Tizanidine HCl 4 mg PO BID PRN PRN 09/15/15 Acetaminophen [Tylenol Tablet] 650 mg PO Q4H PRN PRN #0 tablet 11/29/15 Tamsulosin HCl [Flomax] 0.4 mg PO DAILY@1730 01/11/17 Warfarin [Coumadin] 6 mg PO SUTUTHSA 01/11/17 Citalopram [Celexa] 5 mg PO QHS 08/18/17 Desoximetasone 0.25% [Topicort Crm 0.25%] 1 applic TOPICAL DAILY PRN PRN 08/18/17 Triamcinolone 0.5% Cream [Kenalog] 1 applicatio TOPICAL DAILY PRN PRN 08/18/17 Warfarin [Coumadin] 5 mg PO MOWEFR 08/18/17 Ciprofloxacin [Cipro] 500 mg PO BID #14 tab 08/21/17 The following prescriptions were given: Ciprofloxacin [Cipro] 500 mg PO BID #14 tab Primary Care Physician: Maribell Haley DO [Primary Care Provider] - Within 2 Weeks Please Follow Up With: Timbo Billingsley MD - Urology When: 2-4 weeks Proposed Discharge Date: 08/21/17
--- NOTE | 2017-08-21 13:27 | DS.PCM_ITS ---
Discharge Date and Diagnosis - Problem List Patient Problems: Active and Suspected Problems UTI (urinary tract infection) (Acute) Bacteremia (Acute) Date of Admission: 08/18/17 Date of Discharge: 08/21/17 - Primary Discharge Diagnosis Active and Suspected Problems UTI (urinary tract infection) (Acute) Bacteremia (Acute) - Secondary Discharge Diagnosis Chronic Problems Sleep-disordered breathing (Chronic) UTI (urinary tract infection) (Chronic) Cerebral palsy (Chronic) HTN (hypertension) (Chronic) Recurrent deep venous thrombosis (Chronic) Hyperlipidemia (Chronic) Pulmonary embolism (Chronic) Status post laparoscopic cholecystectomy (Chronic) Hospital Course and Treatment Imaging Results: Clinical Impression(s) from Imaging Studies Chest X-Ray 08/18/17 16:52 IMPRESSION: Bibasilar subsegmental atelectasis Electronically Signed: Cameron Singh MD at 17:35 EDT , Service support , Chest CTA 08/18/17 20:52 IMPRESSION: Normal CTA chest examination, without a demonstrated pulmonary embolism or arterial dissection. Electronically Signed: Cameron Singh MD at 23:07 EDT , Service support , Renal Ultrasound 08/18/17 20:55 IMPRESSION: Normal ultrasound of the kidneys and urinary bladder. Electronically Signed: Cameron Singh MD at 22:12 EDT , Service support , Operations: None Procedures: None Summary of Care Provided: The patient is a 57 year old M presents with severe sepsis, UTI and bacteremia. 1. Severe sepsis * Present on admission. Due to UTI and bacteremia * Lactic acidosis resolved 2. UTI * Patient has a urinary tract infections 3-4 times per year. Last hospitalized for urinary tract infection about 2 years ago. * Urine culture negative, but was not done initially has been ordered may come back negative given the previous antibiotic exposure he has had thus far during this admission * Patient had been seeing a urologist before but that urologist has moved away and has not followed up in years. I recommend to get reestablished with the urologist an anatomical reason for having frequent urinary tract infections. Patient does not self catheterize nor use a Sales catheter and states that he feels that he completely voids his bladder when he urinates. 3. Bacteremia * E. coli pansensitive * Presumably is due to the patient's urinary tract infection * Repeat blood cultures negative * discharge with Cipro 4. VTE * continue coumadin * as patient is on Cipro, will need to monitor coumadin more closely * follow up INR checks in 1 and 2 weeks[] Discharge Diet: No Restrictions Discharge Activity: - - activity as tolerated Call your doctor if you observe: Fever of 101 or Higher, Inability to urinate, Shortness of breath Home Medications: Medications to take at Discharge Atenolol [Tenormin (beta kartik)] 25 mg PO BID 08/12/14 Baclofen 40 mg PO BID 08/12/14 Ergocalciferol [Vitamin D] 50,000 unit PO WE 08/12/14 Omeprazole [Prilosec] 40 mg PO DAILY 08/12/14 Pravastatin [Pravachol] 40 mg PO QHS 08/12/14 Lisinopril [Zestril] 40 mg PO BID 08/01/15 Albuterol Inhaler [Ventolin Hfa] 2 puff INHALATION Q4H PRN PRN #1 inhaler Nystatin [Mycostatin] 1 applic TOPICAL PRN PRN 09/14/15 Tizanidine HCl 4 mg PO BID PRN PRN 09/15/15 Acetaminophen [Tylenol Tablet] 650 mg PO Q4H PRN PRN #0 tablet 11/29/15 Tamsulosin HCl [Flomax] 0.4 mg PO DAILY@1730 01/11/17 Warfarin [Coumadin] 6 mg PO SUTUTHSA 01/11/17 Citalopram [Celexa] 5 mg PO QHS 08/18/17 Desoximetasone 0.25% [Topicort Crm 0.25%] 1 applic TOPICAL DAILY PRN PRN Triamcinolone 0.5% Cream [Kenalog] 1 applicatio TOPICAL DAILY PRN PRN 08/18/17 Warfarin [Coumadin] 5 mg PO MOWEFR 08/18/17 Ciprofloxacin [Cipro] 500 mg PO BID #14 tab 08/21/17 Following Prescrptions Were Given to Patient: Ciprofloxacin [Cipro] 500 mg PO BID #14 tab Primary Care Physician: Maribell Haley DO [Primary Care Provider] - Within 2 Weeks Please Follow Up With: Timbo Billingsley MD - Urology When: 2-4 weeks Disposition: Home with Home Health Minutes spent on discharge:: 32 Patient Condition:: Fair Medical Necessity - Tobacco Use Smoking Status: Former smoker Meaningful Use Info Meaningful Use Diagnoses (Choose all that apply): None applicable Code Visit Inpatient E&M: 33623 Disch Hosp
--- NOTE | 2017-08-21 13:37 | CASEMGMT ---
Resumption of care order placed. Call to [facility] and message left that pt will be discharge home today. Resumption of care order, face sheet and discharge summary faxed to [facility] at this time. Isamar MAHER CM
--- NOTE | 2017-08-21 13:44 | CASEMGMT ---
Patient is ready for discharge. BREANA called [facility] and let them know patient is being discharged. BREANA also called Jackie Nelson at [facility] and left her a voice mail letting her know he is being d/c home. Plan: discharge home with resumption of waiver services. Valeri WHEAT MSW
[2017-08-21 15:31] VITALS: BP 160/78; PULSE 77; RESP 20; TEMP 37.3; O2SAT 94
== END 2017-08-21 17:12 | disposition home health service (06) | DRG 872 ==
LOC: ED 18:42 → PCU 18:43
PROVIDERS: Internal Medicine; Nurse Practitioner Family; Admitting Provider Internal Medicine; Emergency Provider Emergency Medicine; Family Provider Internal Medicine; PCP Internal Medicine
DX: A41.51 Sepsis due to Escherichia coli [E. coli] (principal); N30.00 Acute cystitis without hematuria; Z68.42 Body mass index [BMI] 45.0-49.9, adult; R65.20 Severe sepsis without septic shock; G80.9 Cerebral palsy, unspecified; I89.0 Lymphedema, not elsewhere classified; I10 Essential (primary) hypertension; N40.0 Benign prostatic hyperplasia without lower urinary tract symptoms; E66.01 Morbid (severe) obesity due to excess calories; K21.9 Gastro-esophageal reflux disease without esophagitis; F32.9 Major depressive disorder, single episode, unspecified; E78.5 Hyperlipidemia, unspecified; Z87.440 Personal history of urinary (tract) infections; Z87.891 Personal history of nicotine dependence; Z79.899 Other long term (current) drug therapy; Z99.3 Dependence on wheelchair; Z86.711 Personal history of pulmonary embolism
CPT/HCPCS: 36415; 71045; 71275; 76770; 80048; 80053; 81001; 83605; 84153; 85025; 85027; 85610; 85730; 87040; 87086; 87186; 93005; 97162; 97165; 97530; 97802; 99285; J7030; Q9967; A4216

== ENCOUNTER → 2017-10-30 11:00 | Outpatient (CLI) | payer MEDICARE, MEDICAID, SELFPAY ==
[2017-10-30 11:48] LABS: Absolute Lymphocyte Count 2.39 X10^3/ul (0.83-4.51); Basophil# 0.02 X10^3/uL; Basophil% 0.2 % (0-1); Eosinophil# 0.18 X10^3/uL; Eosinophils% 2.2 % (0-5); Hemoglobin 15.6 g/dl (13.0-16.5); Lymphocyte # 2.39 X10^3/ul (4.0); Lymphocyte % 29.3 % (19-41); Mean Corp Hgb Conc 34.7 g/gl (32-36); Mean Corpuscular Hgb 31.5 pg (27.0-32.0); Mean Corpuscular Volume 90.9 fL (80-94); Mean Platelet Vol. 11.7 fl (6.2-12.0); Monocyte# 0.56 X10^3/uL; Monocyte% 6.9 % (0-10); Neutrophil % 61.3 % (47-70); POSITIVE COUNT NO; POSITIVE DIFFERENTIAL NO; POSITIVE MORPHOLOGY NO; Platelet Count 161 K/mm3 (150-450); RBC Distribution Width CV 15.6 % (11.6-14.6); RBC Distribution Width SD 50.5 fl (35.1-43.9); Red Blood Count 4.95 M/mm3 (4.6-6.2); White Blood Count 8.2 K/mm3 (4.4-11.0)
[2017-10-30 12:27] LABS: ALB/GLOB Ratio 0.8 RATIO (0.9-2.4); AST(SGOT) 19 U/L (15-37); Alanine Aminotransfer ALT/SGPT 31 U/L (16-61); Albumin, Serum 3.4 g/dL (3.2-5.0); Alkaline Phosphatase 63 U/L (45-117); Anion Gap 7 (5-15); BUN 15 mg/dL (7-18); BUN/Creat Ratio 19.9 RATIO (10-20); Calcium,Total 8.7 mg/dL (8.5-10.1); Chloride 110 mmol/L (98-107); Creatinine, Serum 0.75 mg/dL (0.70-1.30); EST Glomerular Filtration Rate 114 mL/min (>60); Est Glom Filt Rate - Afr Amer 138 mL/min (>60); Globulin 4.1 g/dL (2.2-4.2); Glucose 99 mg/dL (74-106); Potassium 3.9 mmol/L (3.5-5.1); Protein, Total 7.5 g/dL (6.4-8.2); Sodium Level 146 mmol/L (136-145); Thyroid Stim Hormone (TSH) 1.04 uIU/mL (0.358-3.74)
[2017-10-30 12:28] LABS: Vitamin D,25 Hydroxy 69.8 ng/mL (29.95-100.01)
[2017-11-03 12:07] LABS: CHOLESTEROL TOTAL 169 mg/dL (100-199); HDL-C 50 mg/dL (>39); HDL-P TOTAL 34.6 umol/L (>=30.5); SMALL LDL-P 408 nmol/L (<=527); TRIGLYCERIDES 88 mg/dL (0-149)
[2017-11-04 11:37] LABS: LDL SIZE 21.1 nm (>20.5); LDL-C 101 mg/dL (0-99); LDL-P 1249 nmol/L (<1000); LP-IR SCORE ** 53 (<=45)
== END ==
PROVIDERS: Family Provider Internal Medicine; PCP Internal Medicine; Visit Provider Internal Medicine
DX: E78.00 Pure hypercholesterolemia, unspecified (principal); R73.01 Impaired fasting glucose; E55.9 Vitamin D deficiency, unspecified
CPT/HCPCS: 36415; 80053; 80061; 82306; 83704; 84443; 85025

== ENCOUNTER → 2018-05-03 10:27 | Outpatient (CLI) | payer MEDICARE, MEDICAID, SELFPAY ==
[2018-05-03 11:23] LABS: Basophil# 0.01 X10^3/uL; Basophil% 0.1 % (0-1); Eosinophil# 0.28 X10^3/uL; Eosinophils% 3.6 % (0-5); Hematocrit 46.5 % (40-54); Hemoglobin 15.6 g/dl (13.0-16.5); Lymphocyte % 25.5 % (19-41); Mean Corp Hgb Conc 33.5 g/gl (32-36); Mean Corpuscular Hgb 31.3 pg (27.0-32.0); Mean Corpuscular Volume 93.4 fL (80-94); Mean Platelet Vol. 11.9 fl (6.2-12.0); Monocyte# 0.51 X10^3/uL; Monocyte% 6.5 % (0-10); Neutrophil # 5.02 X10^3/uL (2.7-7.7); Neutrophil % 64.2 % (47-70); POSITIVE COUNT NO; POSITIVE DIFFERENTIAL NO; POSITIVE MORPHOLOGY NO; Platelet Count 168 K/mm3 (150-450); RBC Distribution Width CV 14.9 % (11.6-14.6); RBC Distribution Width SD 49.8 fl (35.1-43.9); Red Blood Count 4.98 M/mm3 (4.6-6.2); White Blood Count 7.8 K/mm3 (4.4-11.0)
[2018-05-03 11:31] LABS: Partial Thromboplast Time 45.2 Seconds (24.1-36.2)
[2018-05-03 11:52] LABS: ALB/GLOB Ratio 0.8 RATIO (0.9-2.4); AST(SGOT) 16 U/L (15-37); Alanine Aminotransfer ALT/SGPT 28 U/L (16-61); Albumin, Serum 3.2 g/dL (3.2-5.0); Alkaline Phosphatase 71 U/L (45-117); Anion Gap 11 (5-15); BUN 18 mg/dL (7-18); BUN/Creat Ratio 23.7 RATIO (10-20); Calcium,Total 8.4 mg/dL (8.5-10.1); Chloride 109 mmol/L (98-107); Creatinine, Serum 0.76 mg/dL (0.70-1.30); EST Glomerular Filtration Rate 113 mL/min (>60); Est Glom Filt Rate - Afr Amer 136 mL/min (>60); Globulin 4.1 g/dL (2.2-4.2); Glucose 115 mg/dL (74-106); PSA,Total - Annual Screen 0.99 ng/mL (0.00-4.00); Protein, Total 7.3 g/dL (6.4-8.2); Sodium Level 144 mmol/L (136-145)
[2018-05-03 11:55] LABS: Vitamin D,25 Hydroxy 39.3 ng/mL (29.95-100.01)
[2018-05-04 16:08] LABS: CHOLESTEROL TOTAL 168 mg/dL (100-199); HDL-C 40 mg/dL (>39); HDL-P TOTAL 30.3 umol/L (>=30.5); SMALL LDL-P 351 nmol/L (<=527); TRIGLYCERIDES 137 mg/dL (0-149)
[2018-05-05 11:52] LABS: INSULIN RESISTANCE SCORE 65 (<=45); LDL SIZE 21.1 nm (>20.5); LDL-C 101 mg/dL (0-99); LDL-P 1101 nmol/L (<1000)
== END ==
PROVIDERS: Family Provider Internal Medicine; PCP Internal Medicine; Referring Provider Internal Medicine; Visit Provider Internal Medicine
DX: I10 Essential (primary) hypertension (principal); E55.9 Vitamin D deficiency, unspecified; Z79.01 Long term (current) use of anticoagulants; Z12.5 Encounter for screening for malignant neoplasm of prostate
CPT/HCPCS: 36415; 80053; 80061; 81001; 82043; 82306; 82570; 83704; 84153; 85025; 85730; G0103

== ENCOUNTER 2018-09-06 17:28 | Outpatient (RCR) | payer MEDICARE, MEDICAID, SELFPAY ==
--- NOTE | 2018-09-08 14:36 | HP.OTEVAL_ITS ---
Patient's Visit Information VIN FERNÁNDEZ is a 58 year old M, referred to Occupational Therapy by Maribell Haley DO, with a diagnosis of LE lymphedema. Date of Evaluation: 09/06/18 Occupational Therapist: DANNY Gomes/Dakota, CHT - Subjective Subjective: Pt seen for OT eval with dx of LE lymphedema.pt arrives states he need lymphedema shoes. Pt states his alters slipper shoes for him and they are not comfortable and catch on things. pt would like to find a summer and winter lymphedema shoe. [place] [facility] [place] he is using a compression pump 3x aday for 60 min, he does not use compression socks. - Lymphedema (Circumferential Measure) Mid-foot: right 32cm left 32cm Ankle: right 34cm left 33cm Lower calf: right 39cm left 37cm Largest calf: right 46cm left 43cm Below knee: Right 44cm left 44cm - Goals Goal:: PT will demo ind. with donning/doffing lymphedema shoes by d/c - Rehabilitation General Assessment: PT arrives with altered slipper - (added velcro across the top of slipper) for pt to have his feet covered- they are tight and provide little support. pt would benefit from lymphedema shoe- therapist and pt found three different styles pt was interested in - he was going to talk to his about it and see what they wanted to do. I spoke to Cynthia at [facility] and she stated she can order the shoes for Vin. Rehabilitation Potential: Good - Anticipated Interventions Anticipated Interventions: Caregiver Training, Home Program Other Interventions: ed. pt on donning/doffing lymphedema shoes - Visit Plan Frequency: 2 visits TEXT: Thank you for the opportunity to evaluate your patient. For Medicare and Medicare HMO plans, please review the plan of care and approve it. It will need to be FAXED BACK to us at [phone] for Medicare purposes. Please let me know if there are questions or concerns regarding this plan of care. Physician Sign ature: Date:
== END 2018-09-06 19:00 | disposition home or self-care (01) ==
LOC: OT 17:28
PROVIDERS: Family Provider Internal Medicine; PCP Internal Medicine; Referring Provider Internal Medicine; Visit Provider Internal Medicine
DX: R60.9 Edema, unspecified (principal)
CPT/HCPCS: 97166

== ENCOUNTER → 2018-09-30 12:48 | Outpatient (CLI) | payer MEDICARE, MEDICAID, SELFPAY ==
[2017-08-18 18:47] VITALS: BMI 46.6
--- NOTE | 2018-09-30 12:55 | BD_ITS ---
STUDY: DUAL ENERGY X-RAY ABSORPTIOMETRY / DXA REASON FOR EXAM: Male, 58 years old. History of osteoporosis. TECHNIQUE: Bone Mineral Density (BMD) measurements of both forearms were obtained. COMPARISON: Comparison is made with prior examination September 26, 2014. FINDINGS: Right Forearm: g/cm2 (1.085) / T-score (0.8) / Z-score (1.1) Left Forearm: g/cm2 (1.147) / T-score (1.4) / Z-score (1.7) BD/Dexa Bone Density/Append Skel IMPRESSION: The patient is considered normal as outlined below according to World Percy Organization (WHO) criteria with a low fracture risk. Reference Information: The T-score is the number of standard deviations above or below the standard which is normal for young adults at their peak bone mineral density. The World Health Organization (WHO) interprets the T-scores as follows: Above -1 Normal bone density Between -1 and -2.5 Osteopenia Equal to / or below -2.5 Osteoporosis As a practical clinical guideline, osteopenia may be graded as follows: Mild -1 through -1.5 Moderate -1.6 through -2.0 Severe -2.1 through -2.4 The Z-score is the number of standard deviations above or below age-matched controls. A Z-score of less than -1.5 would be considered abnormal. References: 1. NIH Osteoporosis and Related Bone Diseases http://www.osteo.org 2. International Society for Clinical Densitometry http://www.iscd.org 3. National Osteoporosis Foundation http://www.nof.org Electronically Signed: Gt Barajas, at 10:22 EDT , Service support ,
== END ==
PROVIDERS: Family Provider Internal Medicine; PCP Internal Medicine; Referring Provider Internal Medicine; Visit Provider Internal Medicine
DX: M81.0 Age-related osteoporosis without current pathological fracture (principal)
CPT/HCPCS: 77081

== ENCOUNTER → 2019-03-04 11:08 | Outpatient (CLI) | payer MEDICARE, SELFPAY ==
[2017-08-18 18:47] VITALS: BMI 46.6
[2019-03-04 12:22] LABS: Absolute Lymphocyte Count 2.12 X10^3/uL (0.83-4.51); Absolute Neutrophil Count 5.5 X10^3/uL (2.0-7.7); Basophil# 0.03 X10^3/uL; Basophil% 0.4 % (0-1); Eosinophil# 0.21 X10^3/uL; Eosinophils% 2.5 % (0-5); Hematocrit 47.2 % (40-54); Hemoglobin 15.5 g/dL (13.0-16.5); Lymphocyte # 2.12 X10^3/ul (4.0); Lymphocyte % 25.1 % (19-41); Mean Corp Hgb Conc 32.8 g/dL (32-36); Mean Corpuscular Hgb 30.5 pg (27.0-32.0); Mean Corpuscular Volume 92.9 fL (80-94); Mean Platelet Vol. 11.3 fl (6.2-12.0); Monocyte# 0.52 X10^3/uL; Monocyte% 6.2 % (0-10); NRBC Flagged by Analyzer 0 % (0-5); Neutrophil # 5.52 X10^3/uL (2.7-7.7); Neutrophil % 65.4 % (47-70); Platelet Count 166 K/mm3 (150-450); RBC Distribution Width CV 15.1 % (11.6-14.6); RBC Distribution Width SD 51.8 fl (35.1-43.9); Red Blood Count 5.08 M/mm3 (4.6-6.2); White Blood Count 8.4 K/mm3 (4.4-11.0)
[2019-03-04 13:06] LABS: ALB/GLOB Ratio 0.8 RATIO (0.9-2.4); AST(SGOT) 14 U/L (15-37); Alanine Aminotransfer ALT/SGPT 29 U/L (16-61); Albumin, Serum 3.3 g/dL (3.2-5.0); Alkaline Phosphatase 66 U/L (45-117); Anion Gap 3 (5-15); BUN 23 mg/dL (7-18); BUN/Creat Ratio 29.3 RATIO (10-20); Calcium,Total 8.8 mg/dL (8.5-10.1); Chloride 108 mmol/L (98-107); Creatinine, Serum 0.78 mg/dL (0.70-1.30); EST Glomerular Filtration Rate 108 mL/min (>60); Est Glom Filt Rate - Afr Amer 131 mL/min (>60); Globulin 4.1 g/dL (2.2-4.2); Glucose 99 mg/dL (74-106); Potassium 3.6 mmol/L (3.5-5.1); Protein, Total 7.4 g/dL (6.4-8.2); Sodium Level 141 mmol/L (136-145); Thyroid Stim Hormone (TSH) 0.79 uIU/mL (0.358-3.74)
[2019-03-04 13:07] LABS: Vitamin D,25 Hydroxy 47.1 ng/mL (29.95-100.01)
[2019-03-06 12:06] LABS: CHOLESTEROL TOTAL 183 mg/dL (100-199); HDL-C 46 mg/dL (>39); HDL-P TOTAL 32.9 umol/L (>=30.5); SMALL LDL-P 354 nmol/L (<=527); TRIGLYCERIDES 157 mg/dL (0-149)
[2019-03-08 10:49] LABS: INSULIN RESISTANCE SCORE 72 (<=45); LDL SIZE 21.1 nm (>20.5); LDL-C 106 mg/dL (0-99); LDL-P 1048 nmol/L (<1000)
== END ==
PROVIDERS: Family Provider Internal Medicine; PCP Internal Medicine; Referring Provider Internal Medicine; Visit Provider Internal Medicine
DX: E55.9 Vitamin D deficiency, unspecified (principal); I10 Essential (primary) hypertension; E78.00 Pure hypercholesterolemia, unspecified
CPT/HCPCS: 36415; 80053; 80061; 82306; 83704; 84443; 85025

== ENCOUNTER 2019-05-16 16:28 | Inpatient (IN) | payer MEDICARE, MEDICAID, SELFPAY ==
[2019-05-16] VITALS (9 sets, daily range): BP systolic 134–160; BP diastolic 71–83; PULSE 96–103; RESP 16–45; TEMP 36.4–39.1; O2SAT 94–98; BMI 49.0; BMI 48.3; BMI 48.8
--- NOTE | 2019-05-16 16:42 | EKG12_ITS ---
Test Reason : FEVER Blood Pressure : / mmHG Vent. Rate : 095 BPM Atrial Rate : 095 BPM P-R Int : 130 ms QRS Dur : 076 ms QT Int : 334 ms P-R-T Axes : 031 059 013 degrees QTc Int : 419 ms Normal sinus rhythm Low voltage QRS Borderline ECG Confirmed by JOCELYN RODRIGUEZ, LATA ([id number]), city editor DINA ESCOBEDO ([id number] on 05/19/2019 1:28:33 PM Referred By: MAGY Confirmed By:LATA BANKS MD
--- NOTE | 2019-05-16 16:45 | RAD_ITS ---
STUDY: X-RAY CHEST REASON FOR EXAM: Male, 59 years old. worsening cough and fever TECHNIQUE: Single AP portable view of the chest. COMPARISON: Prior study of 08/18/2017 FINDINGS: compliance monitor leads are present. The lungs are clear and expanded. There is mild pleural thickening of the lower left hemithorax, similar to the previous study. Normal size heart. Normal mediastinum and cassidy. Normal visualized pulmonary arteries. Normal visualized aortic arch and descending thoracic aorta. Normal visualized thoracic spine. There are sclerotic changes of the left scapular neck, appearing similar to the previous study. There is no demonstrated abnormality of the visualized soft tissue structures of the upper abdomen. RAD/Chest 1 View (Portable) IMPRESSION: Mild pleural thickening of the lower left hemithorax, stable in the interval. There has been interval resolution of bibasilar atelectasis seen on the previous study. Sclerotic changes in the region of the left scapular neck, appearing similar to the previous study. Electronically Signed: Frank Mitchell MD at 17:04 EDT , Service support ,
--- NOTE | 2019-05-16 16:45 | ED.DCSUM_ITS ---
History of Present Illness Chief Complaint: Fever Informant: Patient, [employer] Developer Onset: - - Uncertain since patient is disoriented Context: - - Unknown Timing: - - Unknown Quality: Fever, cough, not feeling well Location: Presumed respiratory Current Severity: Moderate Maximum Severity: Moderate Worsened by: Infection Relieved by: Nothing Associated Symptoms: Change in mental status Narrative: Is a 59-year-old male who presents by ambulance because of high fever, cough and not acting his normal self. Will review prior records to determine what medical problems he has because he is not able to tell me. He believes he has obstructive sleep apnea. I was informed by paramedics that was positive for influenza A. Not sure when she was tested. Patient voiced he has cerebral palsy. Prior similar symptoms: No Recent Illness/Hospitalization: No - Past Medical History (1) Cerebral palsy Status: Chronic (2) HTN (hypertension) Status: Chronic (3) Hyperlipidemia Status: Chronic (4) Pulmonary embolism Status: Chronic (5) Recurrent deep venous thrombosis Status: Chronic (6) Sleep-disordered breathing Status: Chronic Past Medical History - Allergies and Home Meds Allergies/Adverse Reactions: Allergies No Known Allergies Allergy (Verified 05/16/19 16:29) Primary Care Physician: Maribell Haley DO [Primary Care Provider] - Surgical History: appendectomy, - - Multiple hip and bilateral extremity surgeries for contractures because of cerebral palsy. Lives: Spouse/ Significant Other Smoking Status: Never smoker Alcohol: None Drugs: None, - - Family History Maternal Family History: Reports: No pertinent history Paternal Family History: Reports: No pertinent history Review of Systems ROS: Unable to Obtain - History is limited because patient is disoriented to time. General: Reports: Chills, Fever ENT: Denies: Rhinorrhea, Sore throat Cardiovascular: Denies: Chest pain Respiratory: Reports: Dyspnea, Cough Gastrointestinal: Denies: Abdominal pain, Nausea, Vomiting Genitourinary: Reports: - - Patient does not know if he does or does not have urinary symptoms Musculoskeletal: Reports: Swelling - He reports history of chronic swelling secondary to lymphedema, - - Planes of aches. Skin: Denies: Rash, Wounds Neurological: Reports: Headache, Weakness Hematologic: Denies: Easy bruising, Easy bleeding Allergy: Denies: Swelling of the mouth, Swelling of the tongue Physical Exam Vital Signs/Narrative: Vital Signs Temp Pulse Resp BP Pulse Ox 05/16/19 16:30 100.8 F H 103 H 26 H 153/79 H 94 Inital Vital Signs reviewed: Yes General: Well nourished, Well developed, Obese, - - Patient appears ill. Negative for: Cachectic, Contractures Head: Normocephalic, Atraumatic Eyes: Perrl, EOMI. Negative for: Pale conjunctiva, Scleral icterus ENT: TM's clear, Dry mucous membranes, Nasal congestion. Negative for: No rhinorrhea Neck: Supple, Nontender, No lymphadenopathy, No JVD, - - Salvatore is midline. There is no inspiratory expiratory stridor. Cardiovascular: Regular rhythm, No murmurs, Normal S1, Normal S2, Tachycardia Respiratory: No distress, CTA bilaterally, Chest nontender Abdomen: Soft, Nontender, Nondistended, Normal bowel sounds, No masses Rectal: Deferred Back: Nontender, Normal Inspection Extremities: Nontender, Edema Skin: Normal color, No rash Neurological: Alert, Cranial nerves II-XII grossly intact, Normal Strength, Normal Sensation. Negative for: Oriented x3 Psychological: Normal affect, Normal Mood Diagnostic/Tx/Re-eval Chest X-Ray - ED: 1 View, Read by ED Physician, Normal, Heart, Mediastinum, Bony Structures, No Acute Disease, Chronic Changes, - - No infiltrate or effusion noted. There may be slight improvement compared to prior x-ray. Impressions Chest X-Ray 05/16/19 16:45 IMPRESSION: Mild pleural thickening of the lower left hemithorax, stable in the interval. There has been interval resolution of bibasilar atelectasis seen on the previous study. Sclerotic changes in the region of the left scapular neck, appearing similar to the previous study. Electronically Signed: Frank Mitchell MD at 17:04 EDT , Service support , 05/16/19 16:45 Chest 1 View (Portable) [RAD] Stat 05/16/19 17:00 Mucosa - Nose Influenza Types A,B Direct FA (RENEE) - Final Laboratory Results 05/16/19 05/16/19 05/16/19 16:55 16:55 16:55 WBC 13.5 H RBC 4.72 Hgb 14.6 Hct 42.3 MCV 89.6 MCH 30.9 MCHC 34.5 RDW Std Deviation 45.9 H RDW Coeff of Jason 14.0 Plt Count 129 L MPV 11.3 Immature Gran % (Auto) 0.400 Neut % (Auto) 81.4 H Lymph % (Auto) 10.8 L [place] % (Auto) 7.2 Eos % (Auto) 0.1 Baso % (Auto) 0.1 Absolute Neuts (auto) 11.0 H Absolute Lymphs (auto) 1.46 Nucleated RBC % 0 PT 32.2 H INR 3.1 APTT 62.6 H Sodium 139 Potassium 3.6 Chloride 107 Carbon Dioxide 27.0 Anion Gap 5 BUN 11 Creatinine 0.67 L Estim Creat Clear Calc 101.86 Est GFR (MDRD) Af Amer 157 Est GFR (MDRD) Non-Af 129 BUN/Creatinine Ratio 16.4 Glucose 107 H Lactic Acid Calcium 8.9 Total Bilirubin 1.30 H AST 41 H ALT 54 Alkaline Phosphatase 62 Total Protein 7.2 Albumin 3.4 Globulin 3.8 Albumin/Globulin Ratio 0.9 Urine Color Urine Clarity Urine pH Ur Specific [place] Urine Protein Urine Glucose (UA) Urine Ketones Urine Occult Blood Urine Nitrite Urine Bilirubin Urine Urobilinogen Ur Leukocyte Esterase Urine RBC Urine WBC Ur Squamous Epith Cells Urine Bacteria Urine Mucus 05/16/19 05/16/19 16:55 17:17 WBC RBC Hgb Hct MCV MCH MCHC RDW Std Deviation RDW Coeff of Jason Plt Count MPV Immature Gran % (Auto) Neut % (Auto) Lymph % (Auto) [place] % (Auto) Eos % (Auto) Baso % (Auto) Absolute Neuts (auto) Absolute Lymphs (auto) Nucleated RBC % PT INR APTT Sodium Potassium Chloride Carbon Dioxide Anion Gap BUN Creatinine Estim Creat Clear Calc Est GFR (MDRD) Af Amer Est GFR (MDRD) Non-Af BUN/Creatinine Ratio Glucose Lactic Acid 1.2 Calcium Total Bilirubin AST ALT Alkaline Phosphatase Total Protein Albumin Globulin Albumin/Globulin Ratio Urine Color Yellow Urine Clarity Cloudy Urine pH 5.0 Ur Specific [place] 1.015 Urine Protein 15 H Urine Glucose (UA) Normal Urine Ketones 15 H Urine Occult Blood 150 H Urine Nitrite Negative Urine Bilirubin Negative Urine Urobilinogen 1 H Ur Leukocyte Esterase 500 H Urine RBC > 100 SEEN Urine WBC >100 SEEN Ur Squamous Epith Cells 0 SEEN Urine Bacteria 2+ Urine Mucus 3+ She does have an elevated white count. Source of infection is urinary tract. Chest x-ray reveals improvement from prior. Hospitalist was paged for admission. - Medical Decision Making Presents with fever nonproductive cough and disorientation. Concern for infectious encephalopathy. With history of cough that is nonproductive need to evaluate for viral infection, influenza, possibility of K[place]. This may also represent bacterial pneumonia. Sales was placed for accurate I's and O's. Patient is clinically dehydrated. He will receive a 1 L bolus of normal saline. Will order Rocephin which will cover both respiratory and urologic pathogens. ED Disposition - Plan for ED Patient: [facility] Diagnosis: Urinary tract infection, Sepsis, Infectious encephalopathy Referrals: Maribell Haley DO [Primary Care Provider] -
[2019-05-16 17:09] LABS: Absolute Lymphocyte Count 1.46 X10^3/uL (0.83-4.51); Basophil# 0.02 X10^3/uL; Basophil% 0.1 % (0-1); Eosinophil# 0.01 X10^3/uL; Eosinophils% 0.1 % (0-5); Hematocrit 42.3 % (40-54); Hemoglobin 14.6 g/dL (13.0-16.5); Lymphocyte # 1.46 X10^3/ul (4.0); Lymphocyte % 10.8 % (19-41); Mean Corp Hgb Conc 34.5 g/dL (32-36); Mean Corpuscular Hgb 30.9 pg (27.0-32.0); Mean Corpuscular Volume 89.6 fL (80-94); Mean Platelet Vol. 11.3 fl (6.2-12.0); Monocyte# 0.98 X10^3/uL; Monocyte% 7.2 % (0-10); NRBC Flagged by Analyzer 0 % (0-5); Neutrophil # 11.01 X10^3/uL (2.7-7.7); Neutrophil % 81.4 % (47-70); Platelet Count 129 K/mm3 (150-450); RBC Distribution Width SD 45.9 fl (35.1-43.9); Red Blood Count 4.72 M/mm3 (4.6-6.2); White Blood Count 13.5 K/mm3 (4.4-11.0)
[2019-05-16] MEDS: 0.9% Normal Saline 1,000 ML 999 ML IV (17:13)
[2019-05-16 17:23] LABS: Squamous Epithelial Cells - UA 0 SEEN /hpf (0-5)
[2019-05-16] MEDS: Ceftriaxone 1 GM/50 ML BAG IV (17:26)
[2019-05-16] MEDS: Acetaminophen 325 MG Tablet 650 MG PO (17:29)
[2019-05-16 17:37] LABS: International Normalized Ratio 3.1; Prothrombin Time (Protime)PT. 32.2 SECONDS (11.7-14.9)
[2019-05-16 17:38] LABS: Partial Thromboplast Time 62.6 Seconds (24.1-36.2)
[2019-05-16 17:42] LABS: Lactic Acid 1.2 mmol/L (0.4-1.9)
--- NOTE | 2019-05-16 17:48 | HP.PCM_ITS ---
Problem List (1) UTI (urinary tract infection) Status: Acute (2) Sepsis Status: Acute (3) Cerebral palsy Status: Chronic (4) HTN (hypertension) Status: Chronic (5) Hyperlipidemia Status: Chronic (6) Pulmonary embolism Status: Chronic (7) Recurrent deep venous thrombosis Status: Chronic (8) KAYLEIGH (obstructive sleep apnea) Status: Chronic History of Present Illness Date of Admission: 05/16/19 Chief Complaint: confusion The patient is a 59 year old M with pmhx of UTI, cerebral palsy, DVT, PE, HTN, HLD, KAYLEIGH, lymphedema, who presented to the ER with c/o confusion. The patient was behaving strangely at home and was found to have a fever. The patient is confused and the history is somewhat limited as his is not present. The recently had influenza A however the pts rapid flu is negative. He does report some SOB but no cough, he does actively have a fever of 102.4 and complains of burning when he urinates. He has previously had pansensitive E coli UTI and bacteremia. He denies nausea/vomiting/diarrhea. He has LE edema however reports he always has this as he has lymphedema. He denies cough, congestion, rhinitis. No CP, palp, dizziness, LH. [] Past Medical History Past Medical History (Chronic Problems): Chronic Problems KAYLEIGH (obstructive sleep apnea) (Chronic) Sleep-disordered breathing (Chronic) UTI (urinary tract infection) (Chronic) Cerebral palsy (Chronic) HTN (hypertension) (Chronic) Recurrent deep venous thrombosis (Chronic) Hyperlipidemia (Chronic) Pulmonary embolism (Chronic) Status post laparoscopic cholecystectomy (Chronic) Allergies No Known Allergies Allergy (Verified 05/16/19 16:29) Home Medications: Ambulatory Orders Medication Instructions Recorded Atenolol [Tenormin (beta kartik)] 25 mg PO BID 08/12/14 Ergocalciferol [Vitamin D] 50,000 unit PO WE 08/12/14 Omeprazole [Prilosec] 40 mg PO DAILY 08/12/14 Pravastatin [Pravachol] 40 mg PO QHS 08/12/14 Nystatin [Mycostatin] 1 applic TOPICAL PRN PRN 09/14/15 Tizanidine HCl 4 mg PO BID PRN PRN 09/15/15 Acetaminophen [Tylenol Tablet] 650 mg PO Q4H PRN PRN #0 tablet 11/29/15 Tamsulosin HCl [Flomax] 0.4 mg PO DAILY@1730 01/11/17 Warfarin [Coumadin] 6 mg PO SUTUTHSA 01/11/17 Citalopram [Celexa] 5 mg PO QHS 08/18/17 Desoximetasone 0.25% [Topicort Crm 1 applic TOPICAL DAILY PRN PRN 08/18/17 0.25%] Triamcinolone 0.5% Cream [Kenalog] 1 applicatio TOPICAL DAILY PRN PRN 08/18/17 Warfarin [Coumadin] 5 mg PO MOWEFR 08/18/17 Baclofen 40 mg PO BID 05/16/19 Lisinopril [Zestril] 40 mg PO BID 05/16/19 Surgical History: appendectomy, - - Multiple hip and bilateral extremity surgeries for contractures because of cerebral palsy. Psychiatric History: No pertinent psych hx Lives: Spouse/ Significant Other Smoking Status: Never smoker Alcohol: None Drugs: None, - - *Family History Maternal History Items: No pertinent history Paternal History Items: No pertinent history Review of Systems Constitutional: Reports: Fever, Weakness, Fatigue. Denies: Chills, Weight Change HEENT: Denies: Head Aches, Nasal Congestion, Post Nasal Drip, Sinus Congestion, Sinus Drainage, Sore Throat Cardiovascular: Reports: Edema. Denies: Chest Pain, Chest Pressure, Light Headedness, Palpitations, Syncope Respiratory: Reports: Shortness of Breath. Denies: Cough, Shortness of breath at rest, Sputum production, Wheezing Gastrointestinal: Denies: Abdominal Pain, Diarrhea, Nausea, Vomiting Genitourinary: Reports: Dysuria. Denies: Frequency, Hesitancy, Retention, Urgency Musculoskeletal: Denies: Joint Pain, Joint Tenderness Skin: Denies: Dryness, Lesions, Rash, Wounds Neurological: Denies: Numbness, Tingling, Focal weakness Psychiatric: Denies: Anxiety, Depression, Homicidal Ideations, Suicidal Ideations Hematologic/ Lymphatic: Denies: Easy Bruising, Easy Bleeding VTE Information - Inpt Only VTE Present on Admission: No VTE Mechan Device Prophylaxis: None VTE Pharm Prophylaxis ordered?: Yes Patient Problems: Active and Suspected Problems Infectious encephalopathy (Acute) UTI (urinary tract infection) (Acute) UTI (urinary tract infection) (Acute) Sepsis (Acute) - Physical Exam Vitals/I&O's: Vital Signs Temp Pulse Resp BP Pulse Ox 102.4 F H 99 40 H 160/79 H 96 05/16/19 17:32 05/16/19 17:32 05/16/19 17:32 05/16/19 17:32 05/16/19 17:32 Oxygen Flow Rate (L/min) 2 Oxygen Delivery Method Nasal Cannula Weight: 285 lb 7.978 oz Body Mass Index (BMI) 49.0 General: Alert, Oriented x3, Cooperative HEENT: Atraumatic, PERRLA, EOMI, Normocephalic Neck: Supple, No JVD, Negative Carotid Bruits Lungs: Clear to auscultation, Normal air movement Cardiovascular: Regular rate, No murmurs Abdomen: Bowel Sounds Present, Soft, Non Tender, Obese Extremities: No edema, Capillary Refill Less than 3 Seconds Skin: No rashes, No breakdown Musculoskeletal: No Tenderness to Palpation of Joints or Extremities Neurological: Cranial nerves II-XII grossly intact Psych/Mental Status: Normal Affect, Appropriate, Alert and oriented to time, place, person, mood and affect Microbiology Past 72 Hours 05/16/19 17:00 Mucosa - Nose Influenza Types A,B Direct FA (RENEE) - Final Laboratory Results 05/16/19 16:55: WBC 13.5 H, RBC 4.72, Hgb 14.6, Hct 42.3, MCV 89.6, MCH 30.9, MCHC 34.5, RDW Std Deviation 45.9 H, RDW Coeff of Jason 14.0, Plt Count 129 L, MPV 11.3, Immature Gran % (Auto) 0.400, Neut % (Auto) 81.4 H, Lymph % (Auto) 10.8 L , [place] % (Auto) 7.2, Eos % (Auto) 0.1, Baso % (Auto) 0.1, Absolute Neuts (auto) 11.0 H, Absolute Lymphs (auto) 1.46, Nucleated RBC % 0 05/16/19 16:55: PT 32.2 H, INR 3.1, APTT 62.6 H 05/16/19 16:55: Sodium Pending, Potassium Pending, Chloride Pending, Carbon Dioxide Pending, Anion Gap Pending, BUN Pending, Creatinine Pending, Est GFR (MDRD) Af Amer Pending, Est GFR (MDRD) Non-Af Pending, BUN/Creatinine Ratio Pending, Glucose Pending, Calcium Pending, Total Bilirubin Pending, AST Pending, ALT Pending, Alkaline Phosphatase Pending, Total Protein Pending, Albumin Pending 05/16/19 16:55: Lactic Acid 1.2 05/16/19 17:17: Urine Color Pending, Urine Clarity Pending, Urine pH Pending, Ur Specific [place] Pending, Urine Protein Pending, Urine Glucose (UA) Pending, Urine Ketones Pending, Urine Occult Blood Pending, Urine Nitrite Pending, Urine Bilirubin Pending, Urine Urobilinogen Pending, Ur Leukocyte Esterase Pending, Urine RBC Pending, Urine WBC Pending, Ur Squamous Epith Cells Pending, Urine Bacteria Pending, Urine Mucus Pending Assessment/Plan All Active Problems Infectious encephalopathy (Acute) UTI (urinary tract infection) (Acute) UTI (urinary tract infection) (Acute) Bacteremia (Acute) Hypokalemia (Acute) Hyponatremia (Acute) Supratherapeutic INR (Resolved) Hypomagnesemia (Resolved) Hypophosphatemia (Resolved) Acute delirium (Acute) Rhinitis (Acute) Dehydration (Acute) Sepsis (Acute) Clostridium difficile enterocolitis (Acute) 1. Acute sepsis 2/2 acute UTI with associated acute metabolic encephalopathy - + UA, dysuria, leukocytosis, fever, tachycardia, negative lactate. Continue rocep hin. Check cx. Previously pansensitive E coli. Prior Bacteremia. Blood cx pending. Sales in place. CXR with nonspecific findings, similar to previous studies. recently had flu A however his rapid flu is negative. 2. Hx DVT/PE - warfarin therapeutic 3. KAYLEIGH - unclear if he uses cpap at home 4. HTN - mildly elevated 5. HLD - statin 6. Morbid obesity - communications operator eval 7. Cerebreal palsy - PTOT DVT ppx: warfarin DC planning: PTOT This patient was seen by Nuno Blair PA-C under the supervision of Doctor Kingsley.
[2019-05-16 17:54] LABS: Color, Urine Yellow (Yellow); Glucose, Dipstick Normal (Normal); Ketone-Dipstick 15 mg/dl (Negative); Leukocyte Esterase-Dipstick 500 /ul (Negative); Nitrite-Dipstick Negative (Negative); Occult Blood-Urine 150 /ul (Negative); Protein-Dipstick 15 mg/dl (Negative); Specific Gravity, Urine 1.015 (1.002-1.030); Urine Bilirubin Dipstick Negative (Negative); Urine Clarity Cloudy (Clear); Urine Urobilinogen 1 mg/dl (Normal)
[2019-05-16 18:01] LABS: Red Blood Cells-Urine > 100 SEEN /hpf (0-5); White Blood Cells >100 SEEN /hpf (0-5)
[2019-05-16 18:02] LABS: Bacteria 2+ /hpf (None Seen); Mucous, Urine 3+ /hpf (<or=2+)
[2019-05-16 18:06] LABS: ALB/GLOB Ratio 0.9 RATIO (0.9-2.4); AST(SGOT) 41 U/L (15-37); Alanine Aminotransfer ALT/SGPT 54 U/L (16-61); Albumin, Serum 3.4 g/dL (3.2-5.0); Alkaline Phosphatase 62 U/L (45-117); Anion Gap 5 (5-15); BUN 11 mg/dL (7-18); BUN/Creat Ratio 16.4 RATIO (10-20); Calcium,Total 8.9 mg/dL (8.5-10.1); Chloride 107 mmol/L (98-107); Creatinine, Serum 0.67 mg/dL (0.70-1.30); EST Glomerular Filtration Rate 129 mL/min (>60); Est Glom Filt Rate - Afr Amer 157 mL/min (>60); Estimated Creatinine Clearance 101.86 ml/min; Globulin 3.8 g/dL (2.2-4.2); Glucose 107 mg/dL (74-106); Potassium 3.6 mmol/L (3.5-5.1); Protein, Total 7.2 g/dL (6.4-8.2); Sodium Level 139 mmol/L (136-145)
[2019-05-16] MEDS: 0.9% Normal Saline 1,000 ML 125 ML IV (20:46)
[2019-05-16] MEDS: 0.9% Saline Lock 10 ML Syringe IV (20:47)
[2019-05-16] MEDS: Lisinopril 40 MG Tablet PO (21:32)
[2019-05-16] MEDS: Pravastatin 40 MG Tablet PO (21:32)
[2019-05-16] MEDS: Atenolol 25 MG Tablet PO (21:32)
[2019-05-16] MEDS: Baclofen 10 MG Tablet 40 MG PO (21:32)
[2019-05-16] MEDS: Citalopram 10 MG Tablet PO (21:32)
[2019-05-17] VITALS (8 sets, daily range): BP systolic 135–161; BP diastolic 69–87; PULSE 84–92; RESP 12–20; TEMP 36.5–37.1; O2SAT 89–95
[2019-05-17] MEDS: 0.9% Normal Saline 1,000 ML 125 ML IV ×3 (04:31→21:25)
--- NOTE | 2019-05-17 04:35 | CPS ---
Pt unable to tolerate [facility] bipap mask or unit.Pt states he wont be able to wear are unit.Unit removed from room.Pt will try to have his home unit brought in.
[2019-05-17 06:49] LABS: Absolute Lymphocyte Count 2.06 X10^3/uL (0.83-4.51); Absolute Neutrophil Count 13.1 X10^3/uL (2.0-7.7); Basophil# 0.03 X10^3/uL; Basophil% 0.2 % (0-1); Eosinophil# 0.01 X10^3/uL; Eosinophils% 0.1 % (0-5); Hematocrit 39.8 % (40-54); Hemoglobin 13.4 g/dL (13.0-16.5); Lymphocyte # 2.06 X10^3/ul (4.0); Lymphocyte % 12.6 % (19-41); Mean Corp Hgb Conc 33.7 g/dL (32-36); Mean Corpuscular Hgb 30.9 pg (27.0-32.0); Mean Corpuscular Volume 91.9 fL (80-94); Mean Platelet Vol. 11.7 fl (6.2-12.0); Monocyte% 6.7 % (0-10); NRBC Flagged by Analyzer 0 % (0-5); Neutrophil # 13.13 X10^3/uL (2.7-7.7); Neutrophil % 79.9 % (47-70); Platelet Count 112 K/mm3 (150-450); RBC Distribution Width CV 13.8 % (11.6-14.6); RBC Distribution Width SD 46.9 fl (35.1-43.9); Red Blood Count 4.33 M/mm3 (4.6-6.2); White Blood Count 16.4 K/mm3 (4.4-11.0)
[2019-05-17 06:56] LABS: International Normalized Ratio 3.1; Prothrombin Time (Protime)PT. 32.3 SECONDS (11.7-14.9)
[2019-05-17 07:11] LABS: Anion Gap 11 (5-15); BUN 7 mg/dL (7-18); BUN/Creat Ratio 13.8 RATIO (10-20); Calcium,Total 8.2 mg/dL (8.5-10.1); Chloride 107 mmol/L (98-107); Creatinine, Serum 0.51 mg/dL (0.70-1.30); EST Glomerular Filtration Rate 179 mL/min (>60); Est Glom Filt Rate - Afr Amer 217 mL/min (>60); Estimated Creatinine Clearance 133.81 ml/min; Glucose 96 mg/dL (74-106); Potassium 3.2 mmol/L (3.5-5.1); Sodium Level 143 mmol/L (136-145)
--- NOTE | 2019-05-17 10:12 | PN_ITS ---
<Nuno Blair - Last Filed: 05/17/19 10:12> Patient Problems: Active and Suspected Problems Infectious encephalopathy (Acute) UTI (urinary tract infection) (Acute) UTI (urinary tract infection) (Acute) Sepsis (Acute) Reason for Visit: uti Subjective: Pt alert and oriented. No discomfort with dewitt, no abd pain. No subjective fever/chills. No n/v/d. Vitals/I&O's: Vital Signs Temp Pulse Resp BP Pulse Ox 98.1 F 88 16 161/77 H 95 05/17/19 02:57 05/17/19 02:57 05/17/19 07:40 05/17/19 02:57 05/17/19 07:40 Oxygen Flow Rate (L/min) 2 Oxygen Delivery Method Room Air Weight: 281 lb 12.012 oz Body Mass Index (BMI) 48.3 Intake and Output for Last 24 Hours 05/15/19 05/16/19 05/17/19 23:59 23:59 23:59 Intake Total 1550 / 1550 1568.75 / 1568.75 Output Total 500 / 500 1225 / 1225 Balance 1050 / 1050 343.75 / 343.75 General: Alert, Oriented x3, Cooperative HEENT: Atraumatic, PERRLA, EOMI, Normocephalic Neck: Supple, No JVD, Negative Carotid Bruits Lungs: Clear to auscultation, Normal air movement Cardiovascular: Regular rate, No murmurs Abdomen: Bowel Sounds Present, Soft, Non Tender, Obese Extremities: No edema, Capillary Refill Less than 3 Seconds Skin: No rashes, No breakdown Musculoskeletal: No Tenderness to Palpation of Joints or Extremities Neurological: Cranial nerves II-XII grossly intact Psych/Mental Status: Normal Affect, Appropriate, Alert and oriented to time, place, person, mood and affect Microbiology Past 72 Hours 05/16/19 23:00 Mucosa - Nasopharyngeal Respiratory Panel (PCR) - Final 05/16/19 17:00 Mucosa - Nose Influenza Types A,B Direct FA (RENEE) - Final Laboratory Results 05/16/19 16:55: WBC 13.5 H, RBC 4.72, Hgb 14.6, Hct 42.3, MCV 89.6, MCH 30.9, MCHC 34.5, RDW Std Deviation 45.9 H, RDW Coeff of Jason 14.0, Plt Count 129 L, MPV 11.3, Immature Gran % (Auto) 0.400, Neut % (Auto) 81.4 H, Lymph % (Auto) 10.8 L, [place] % (Auto) 7.2, Eos % (Auto) 0.1, Baso % (Auto) 0.1, Absolute Neuts (auto) 11.0 H, Absolute Lymphs (auto) 1.46, Nucleated RBC % 0 05/16/19 16:55: PT 32.2 H, INR 3.1, APTT 62.6 H 05/16/19 16:55: Sodium 139, Potassium 3.6, Chloride 107, Carbon Dioxide 27.0, Anion Gap 5, BUN 11, Creatinine 0.67 L, Estim Creat Clear Calc 101.86, Est GFR (MDRD) Af Amer 157, Est GFR (MDRD) Non-Af 129, BUN/Creatinine Ratio 16.4, G lucose 107 H, Calcium 8.9, Total Bilirubin 1.30 H, AST 41 H, ALT 54, Alkaline Phosphatase 62, Total Protein 7.2, Albumin 3.4, Globulin 3.8, Albumin/Globulin Ratio 0.9 05/16/19 16:55: Lactic Acid 1.2 05/16/19 17:17: Urine Color Yellow, Urine Clarity Cloudy, Urine pH 5.0, Ur Specific [place] 1.015, Urine Protein 15 H, Urine Glucose (UA) Normal, Urine Ketones 15 H, Urine Occult Blood 150 H, Urine Nitrite Negative, Urine Bilirubin Negative, Urine Urobilinogen 1 H, Ur Leukocyte Esterase 500 H, Urine RBC > 100 SEEN, Urine WBC >100 SEEN, Ur Squamous Epith Cells 0 SEEN, Urine Bacteria 2+, Urine Mucus 3+ 05/17/19 05:53: WBC 16.4 H, RBC 4.33 L, Hgb 13.4, Hct 39.8 L, MCV 91.9, MCH 30.9, MCHC 33.7, RDW Std Deviation 46.9 H, RDW Coeff of Jason 13.8, Plt Count 112 L, MPV 11.7, Immature Gran % (Auto) 0.500, Neut % (Auto) 79.9 H, Lymph % (Auto) 12.6 L, [place] % (Auto) 6.7, Eos % (Auto) 0.1, Baso % (Auto) 0.2, Absolute Neuts (auto) 13.1 H, Absolute Lymphs (auto) 2.06, Nucleated RBC % 0 05/17/19 05:53: PT 32.3 H, INR 3.1 05/17/19 05:53: Sodium 143, Potassium 3.2 L, Chloride 107, Carbon Dioxide 25.0, Anion Gap 11, BUN 7, Creatinine 0.51 L, Estim Creat Clear Calc 133.81, Est GFR (MDRD) Af Amer 217, Est GFR (MDRD) Non-Af 179, BUN/Creatinine Ratio 13.8, Glucose 96, Calcium 8.2 L Current Medications Acetaminophen (Tylenol) 650 mg PO Q6H PRN PRN PRN Reason: Pain Score 1-10/Temp > 100.7 F Al Hydroxide/Mg Hydroxide (Mylanta Ii) 30 ml PO Q6H PRN PRN PRN Reason: Gastric Burning Albuterol Sulfate (Ventolin Aerosols) 2.5 mg INHALATION Q2H PRN PRN PRN Reason: Shortness of Breath/Wheezing Atenolol (Tenormin (Beta Rodrigo)) 25 mg PO BID [facility] Last Admin: 05/16/19 21:32 Dose: 25 mg Documented by: Baclofen (Lioresal) 40 mg PO BID [facility] Last Admin: 05/16/19 21:32 Dose: 40 mg Documented by: Citalopram Hydrobromide (Celexa) 10 mg PO QHS [facility] Last Admin: 05/16/19 21:32 Dose: 10 mg Documented by: Dextrose (D50w Syringe) 0 gm IV X1 PRN; Protocol PRN Reason: Hypoglycemia Glucagon () 1 mg IM .X1 PRN PRN Reason: Hypoglycemia Guaifenesin (Robitussin) 20 ml PO Q4H PRN PRN PRN Reason: COUGH Hydralazine HCl (Apresoline Iv) 10 mg IV Q4H PRN PRN PRN Reason: SBP > 160 Sodium Chloride () 1,000 mls @ 125 mls/hr IV .Q8H [facility] Last Admin: 05/17/19 04:31 Dose: 125 mls/hr Documented by: Ceftriaxone Sodium (Rocephin) 1 gm in 50 mls @ 100 mls/hr IV Q24 [facility] Lisinopril (Zestril) 40 mg PO BID [facility] Last Admin: 05/16/19 21:32 Dose: 40 mg Documented by: Magnesium Hydroxide (Milk Of Magnesia) 30 ml PO DAILY PRN PRN PRN Reason: Constipation Melatonin (Melatonin) 3 mg PO QHS PRN PRN PRN Reason: INSOMNIA Morphine Sulfate () 2 mg IV Q3H PRN PRN PRN Reason: Pain Score 6-10/10 Nitroglycerin (Nitrostat) 0.4 mg SUBLINGUAL Q5M PRN PRN Reason: CARDIAC/CHEST PAIN Nutritional Formula (Lactose Free) (Ensure Enlive) 120 ml PO 4X/DAY [facility] Last Admin: 05/16/19 23:13 Dose: Not Given Documented by: Ondansetron HCl (Zofran) 4 mg IV Q8H PRN PRN PRN Reason: NAUSEA/VOMITING Oxycodone HCl (Oxyir) 5 mg PO Q4H PRN PRN PRN Reason: Pain Score 4-5/10 Pantoprazole Sodium (Protonix) 40 mg PO DAILY [facility] Pravastatin Sodium (Pravachol) 40 mg PO QHS [facility] Last Admin: 05/16/19 21:32 Dose: 40 mg Documented by: Prochlorperazine Edisylate (Compazine Iv) 5 mg IV Q4H PRN PRN PRN Reason: Breakthrough nausea/vomiting Psyllium Hydrophilic Mucilloid (Metamucil) 1 packet PO DAILY PRN PRN PRN Reason: Constipation Senna/Docusate Sodium (Senokot-S, Jany-Colace) 2 tablet PO BID PRN PRN PRN Reason: Constipation Sodium Chloride () 10 - 40 ml IV UD PRN PRN Reason: SALINE FLUSH Last Admin: 05/16/19 20:47 Dose: 10 ml Documented by: Tamsulosin HCl (Flomax) 0.4 mg PO DAILY@1730 [facility] Throat Lozenges (Cepacol Sore Throat Lozenge) 1 lozenge MUCOUS MEM Q2H PRN PRN PRN Reason: SORE THROAT Tizanidine HCl (Zanaflex) 4 mg PO BID PRN PRN PRN Reason: MUSCLE SPASm Triamcinolone Acetonide (Triamcinolone Acetonide) 1 applic TOPICAL DAILY PRN PRN; Protocol PRN Reason: yeast infections Warfarin Sodium (Coumadin (Pbkc)) 5 mg PO MoWeFr@1700 [facility] Warfarin Sodium (Coumadin (Pbkc)) 6 mg PO SuTuThSa@1700 [facility] STROKE Vital Signs/Narrative: Vital Signs Resp Pulse Ox 05/17/19 07:40 16 95 Medical Necessity - Tobacco Use Smoking Status: Former smoker Tobacco Use: Cigarettes, Chew Assessment/Plan All Active Problems Infectious encephalopathy (Acute) UTI (urinary tract infection) (Acute) UTI (urinary tract infection) (Acute) Bacteremia (Acute) Hypokalemia (Acute) Hyponatremia (Acute) Supratherapeutic INR (Resolved) Hypomagnesemia (Resolved) Hypophosphatemia (Resolved) Acute delirium (Acute) Rhinitis (Acute) Dehydration (Acute) Sepsis (Acute) Clostridium difficile enterocolitis (Acute) 1. Acute sepsis 2/2 acute UTI with associated acute metabolic encephalopathy - no improvement in WBC. No fevers today so far. Continue rocephin. Resp panel and flu screen neg. Blood cx and urine cx pending. No further SOB. 2. Hx DVT/PE - warfarin therapeutic 3. KAYLEIGH - cpap qhs 4. HTN - mildly elevated 5. HLD - statin 6. 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 Cerebral palsy - PTOT DVT ppx: warfarin DC planning: PTOT This patient was seen by Nuno Blair PA-C under the supervision of Doctor Jaxson <Ania Puri - Last Filed: 05/17/19 15:01> Vitals/I&O's: Vital Signs Temp Pulse Resp BP Pulse Ox 98.2 F 84 18 135/71 H 93 05/17/19 14:17 05/17/19 14:17 05/17/19 14:17 05/17/19 14:17 05/17/19 14:17 Oxygen Flow Rate (L/min) 2 Oxygen Delivery Method Room Air Weight: 281 lb 12.012 oz Body Mass Index (BMI) 48.3 Intake and Output for Last 24 Hours 05/15/19 05/16/19 05/17/19 23:59 23:59 23:59 Intake Total 1550 / 1550 2618.75 / 2618.75 Output Total 500 / 500 2125 / 2125 Balance 1050 / 1050 493.75 / 493.75 Microbiology Past 72 Hours 05/16/19 23:00 Mucosa - Nasopharyngeal Respiratory Panel (PCR) - Final 05/16/19 17:00 Mucosa - Nose Influenza Types A,B Direct FA (RENEE) - Final Laboratory Results 05/16/19 16:55: WBC 13.5 H, RBC 4.72, Hgb 14.6, Hct 42.3, MCV 89.6, MCH 30.9, MCHC 34.5, RDW Std Deviation 45.9 H, RDW Coeff of Jason 14.0, Plt Count 129 L, MPV 11.3, Immature Gran % (Auto) 0.400, Neut % (Auto) 81.4 H, Lymph % (Auto) 10.8 L, [place] % (Auto) 7.2, Eos % (Auto) 0.1, Baso % (Auto) 0.1, Absolute Neuts (auto) 11.0 H, Absolute Lymphs (auto) 1.46, Nucleated RBC % 0 05/16/19 16:55: PT 32.2 H, INR 3.1, APTT 62.6 H 05/16/19 16:55: Sodium 139, Potassium 3.6, Chloride 107, Carbon Dioxide 27.0, Anion Gap 5, BUN 11, Creatinine 0.67 L, Estim Creat Clear Calc 101.86, Est GFR (MDRD) Af Amer 157, Est GFR (MDRD) Non-Af 129, BUN/Creatinine Ratio 16.4, Glucose 107 H, Calcium 8.9, Total Bilirubin 1.30 H, AST 41 H, ALT 54, Alkaline Phosphatase 62, Total Protein 7.2, Albumin 3.4, Globulin 3.8, Albumin/Globulin Ratio 0.9 05/16/19 16:55: Lactic Acid 1.2 05/16/19 17:17: Urine Color Yellow, Urine Clarity Cloudy, Urine pH 5.0, Ur Specific [place] 1.015, Urine Protein 15 H, Urine Glucose (UA) Normal, Urine Ketones 15 H, Urine Occult Blood 150 H, Urine Nitrite Negative, Urine Bilirubin Negative, Urine Urobilinogen 1 H, Ur Leukocyte Esterase 500 H, Urine RBC > 100 SEEN, Urine WBC >100 SEEN, Ur Squamous Epith Cells 0 SEEN, Urine Bacteria 2+, Urine Mucus 3+ 05/17/19 05:53: WBC 16.4 H, RBC 4.33 L, Hgb 13.4, Hct 39.8 L, MCV 91.9, MCH 30.9, MCHC 33.7, RDW Std Deviation 46.9 H, RDW Coeff of Jason 13.8, Plt Count 112 L, MPV 11.7, Immature Gran % (Auto) 0.500, Neut % (Auto) 79.9 H, Lymph % (Auto) 12.6 L, [place] % (Auto) 6.7, Eos % (Auto) 0.1, Baso % (Auto) 0.2, Absolute Neuts (auto) 13.1 H, Absolute Lymphs (auto) 2.06, Nucleated RBC % 0 05/17/19 05:53: PT 32.3 H, INR 3.1 05/17/19 05:53: Sodium 143, Potassium 3.2 L, Chloride 107, Carbon Dioxide 25.0, Anion Gap 11, BUN 7, Creatinine 0.51 L, Estim Creat Clear Calc 133.81, Est GFR (MDRD) Af Amer 217, Est GFR (MDRD) Non-Af 179, BUN/Creatinine Ratio 13.8, Glucose 96, Calcium 8.2 L Current Medications Acetaminophen (Tylenol) 650 mg PO Q6H PRN PRN PRN Reason: Pain Score 1-10/Temp > 100.7 F Al Hydroxide/Mg Hydroxide (Mylanta Ii) 30 ml PO Q6H PRN PRN PRN Reason: Gastric Burning Albuterol Sulfate (Ventolin Aerosols) 2.5 mg INHALATION Q2H PRN PRN PRN Reason: Shortness of Breath/Wheezing Atenolol (Tenormin (Beta Rodrigo)) 25 mg PO BID [facility] Last Admin: 05/17/19 11:14 Dose: 25 mg Documented by: Baclofen (Lioresal) 40 mg PO BID [facility] Last Admin: 05/17/19 11:14 Dose: 40 mg Documented by: Citalopram Hydrobromide (Celexa) 10 mg PO QHS [facility] Last Admin: 05/16/19 21:32 Dose: 10 mg Documented by: Dextrose (D50w Syringe) 0 gm IV X1 PRN; Protocol PRN Reason: Hypoglycemia Glucagon () 1 mg IM .X1 PRN PRN Reason: Hypoglycemia Guaifenesin (Robitussin) 20 ml PO Q4H PRN PRN PRN Reason: COUGH Hydralazine HCl (Apresoline Iv) 10 mg IV Q4H PRN PRN PRN Reason: SBP > 160 Sodium Chloride () 1,000 mls @ 125 mls/hr IV .Q8H [facility] Last Admin: 05/17/19 12:54 Dose: 125 mls/hr Documented by: Ceftriaxone Sodium (Rocephin) 1 gm in 50 mls @ 100 mls/hr IV Q24 [facility] Last Infusion: 05/17/19 11:38 Dose: Infused Documented by: Lisinopril (Zestril) 40 mg PO BID [facility] Last Admin: 05/17/19 11:14 Dose: 40 mg Documented by: Magnesium Hydroxide (Milk Of Magnesia) 30 ml PO DAILY PRN PRN PRN Reason: Constipation Melatonin (Melatonin) 3 mg PO QHS PRN PRN PRN Reason: INSOMNIA Morphine Sulfate () 2 mg IV Q3H PRN PRN PRN Reason: Pain Score 6-10/10 Nitroglycerin (Nitrostat) 0.4 mg SUBLINGUAL Q5M PRN PRN Reason: CARDIAC/CHEST PAIN Nutritional Formula (Lactose Free) (Ensure Enlive) 120 ml PO 4X/DAY [facility] Last Admin: 05/17/19 14:15 Dose: Not Given Documented by: Ondansetron HCl (Zofran) 4 mg IV Q8H PRN PRN PRN Reason: NAUSEA/VOMITING Oxycodone HCl (Oxyir) 5 mg PO Q4H PRN PRN PRN Reason: Pain Score 4-5/10 Pantoprazole Sodium (Protonix) 40 mg PO DAILY [facility] Last Admin: 05/17/19 11:14 Dose: 40 mg Documented by: Pravastatin Sodium (Pravachol) 40 mg PO QHS [facility] Last Admin: 05/16/19 21:32 Dose: 40 mg Documented by: Prochlorperazine Edisylate (Compazine Iv) 5 mg IV Q4H PRN PRN PRN Reason: Breakthrough nausea/vomiting Psyllium Hydrophilic Mucilloid (Metamucil) 1 packet PO DAILY PRN PRN PRN Reason: Constipation Senna/Docusate Sodium (Senokot-S, Jany-Colace) 2 tablet PO BID PRN PRN PRN Reason: Constipation Sodium Chloride () 10 - 40 ml IV UD PRN PRN Reason: SALINE FLUSH Last Admin: 05/16/19 20:47 Dose: 10 ml Documented by: Tamsulosin HCl (Flomax) 0.4 mg PO DAILY@1730 [facility] Throat Lozenges (Cepacol Sore Throat Lozenge) 1 lozenge MUCOUS MEM Q2H PRN PRN PRN Reason: SORE THROAT Tizanidine HCl (Zanaflex) 4 mg PO BID PRN PRN PRN Reason: MUSCLE SPASm Triamcinolone Acetonide (Triamcinolone Acetonide) 1 applic TOPICAL DAILY PRN PRN; Protocol PRN Reason: yeast infections Warfarin Sodium (Coumadin (Pbkc)) 5 mg PO MoWeFr@1700 [facility] Warfarin Sodium (Coumadin (Pbkc)) 6 mg PO SuTuThSa@1700 [facility] STROKE Vital Signs/Narrative: Vital Signs Temp Pulse Resp BP Pulse Ox 05/17/19 14:17 98.2 F 84 18 135/71 H 93 05/17/19 11:17 97.7 F L 89 18 143/69 H 93 Assessment/Plan Patient seen by Nuno Blair PA-C under my supervision Patient was admitted complaint of altered mental status and was found to have a fever. had had recent influenza A. Patient did report some shortness of breath but had no cough and did have a fever of 102.4 Fahrenheit and burning with urination. He was found to have UTI and is been managed for sepsis due to UTI and acute metabolic encephalopathy due to UTI. Patient seen and examined today. He is alert and had no complaints. He denied fever or chills and denied a cough, chest pain shortness of breath or palpitations. He did admit to having burning with urination but that is getting better. Review of steps otherwise negative. Potassium is 3.2 today. Vitals otherwise stable. WBC is up to 16.4 from 13.5 on admission. o/e: Vital Signs Height 5 ft 4 in Weight: 281 lb 12.012 oz Weight in Pounds 281.8 lbs Pulse Ox 93 Temperature 98.2 F Pulse Rate 84 Respiratory Rate 18 Blood Pressure 135/71 Blood Pressure Position Semi-Fowlers General: Alert, Oriented x3, Cooperative, obese HEENT: Atraumatic, PERRLA, EOMI, Normocephalic Neck: Supple, No JVD, Negative Carotid Bruits Lungs: Clear to auscultation, Normal air movement Cardiovascular: Regular rate, No murmurs Abdomen: Bowel Sounds Present, Soft, Non Tender, Obese Extremities: No edema, Capillary Refill Less than 3 Seconds Skin: No rashes, No breakdown Musculoskeletal: No Tenderness to Palpation of Joints or Extremities Neurological: Cranial nerves II-XII grossly intact Psych/Mental Status: Normal Affect, Appropriate, Alert and oriented to time, place, person, mood and affect Plan is continue IV ceftriaxone for UTI. Urine cultures and blood cultures pending. Respiratory panel was negative and influenza screen was negative. White cell count continues to trend up tomorrow, will consider escalatinig antibiotics. [place] Was 3.2. Will replace and monitor. Rest as per Nuno Blair PA-C's notes which I have reviewed and endorsed. Inpatient E&M: 12597 Subs Hosp L2
--- NOTE | 2019-05-17 10:54 | CASEMGMT ---
Social Work Note SW received call from Macie Nelson at [facility]. Macie states pt has aides through [employer] seven days a week for ten hours a day. Yolanda Swift SUPERVISOR QUALITY CONTROL, ASSISTANT HEAD CASHIER
[2019-05-17] MEDS: Ceftriaxone 1 GM/50 ML BAG IV (11:08)
[2019-05-17] MEDS: Atenolol 25 MG Tablet PO ×2 (11:14→22:24)
[2019-05-17] MEDS: Lisinopril 40 MG Tablet PO ×2 (11:14→22:24)
[2019-05-17] MEDS: Baclofen 10 MG Tablet 40 MG PO ×2 (11:14→22:23)
[2019-05-17] MEDS: Pantoprazole Sodium 40 MG Tablet PO (11:14)
--- NOTE | 2019-05-17 13:30 | CASEMGMT ---
NIKA MARR Face to Face with patient for initial transition planning/care coordination assessment. NIKA MARR introduced self and role at [facility]. Patient lying in bed, alert and oriented. Patient willing to participate in assessment and is able to answer all questions appropriately. Care providers, pharmacy, and demographics verified. Patient wishes to discharge home, with resumption of HHC with [facility] and aide through [facility]. Patient states he has no further needs or concerns at this time. CM to follow for discharge planning needs that may arise. PCP: Sudha Specialists: none Preferred Pharmacy: [facility] Retail Insurance: [employer] Prescription Benefit: yes Living Will/HPOA: none LNOK: Living Arrangements: Patient lives with in single story apartment, no steps to enter. Patient has aide services for care. Transportation: or [place] DME/HHC: Patient has BSC/Shower chair, wheelchair, sit to stand, lift chair, and cpap at home. Patient has HHC with [facility] and aide services through [facility] 7day/week 10hr/day. Disposition Plan: Patient to discharge home with resumption of HHC, aide services, family support, and follow-up plans in place. Yolanda HOGUE, RN, CM
--- NOTE | 2019-05-17 14:15 | CASEMGMT ---
RN CM called [facility] [phone] to verify HHC services. [facility] is active for [facility]. CM to updated [facility] when patient is discharged.
--- NOTE | 2019-05-17 15:06 | CHAPLAIN ---
Type of Pastoral Visit _x__ Initial Visit ___ Follow-up Visit ___ On-call Visit ___ General Patient Visit ___ Spiritual Assessment ___ Family Conference ___ Bereavement ___ Rapid Response ___ Code Blue ___ Other (describe below) Pastoral Care Referral From _x__ Patient ___ Family ___ Nurse ___ Physician ___ [place] ___ Encoding Clerk ___ Other (describe below) Sacrament/Intervention _x__ Active listening ___ Anointing ___ Denominational ___ Bereavement ___ Communion ___ Cyndie exploration ___ ___ Life review _x__ Prayer ___ Reconciliation ___ Sacrament of Sick ___ Supportive presence ___ Wedding ___ Other (describe below) Pastoral Comments
[2019-05-17] MEDS: Tamsulosin HCl 0.4 MG Capsule PO (18:04)
--- NOTE | 2019-05-17 18:55 | NURSING ---
REGI MADE AWARE OF PTS MULTIPLE SMALL LOOSE STOOLS THIS SHIFT - ORDER FOR CDIFF.
--- NOTE | 2019-05-17 19:00 | CPS ---
pt did not want our cpap-forgot to ask someone to bring in-2 l/m via nc placed at bedside
[2019-05-17] MEDS: Citalopram 10 MG Tablet PO (22:23)
[2019-05-17] MEDS: Pravastatin 40 MG Tablet PO (22:24)
[2019-05-18] VITALS (9 sets, daily range): BP systolic 124–162; BP diastolic 62–81; PULSE 83–93; RESP 18–28; TEMP 36.8–37.4; O2SAT 93–97
[2019-05-18] MEDS: 0.9% Normal Saline 1,000 ML 125 ML IV (04:51)
[2019-05-18 06:37] LABS: Anion Gap 10 (5-15); BUN 8 mg/dL (7-18); BUN/Creat Ratio 15.7 RATIO (10-20); Calcium,Total 8.1 mg/dL (8.5-10.1); Chloride 111 mmol/L (98-107); Creatinine, Serum 0.51 mg/dL (0.70-1.30); EST Glomerular Filtration Rate 178 mL/min (>60); Est Glom Filt Rate - Afr Amer 216 mL/min (>60); Estimated Creatinine Clearance 133.81 ml/min; Glucose 114 mg/dL (74-106); Potassium 3.4 mmol/L (3.5-5.1); Sodium Level 143 mmol/L (136-145)
[2019-05-18] MEDS: Albuterol 2.5 MG/3 ML VIAL.NEB. INHALATION ×3 (07:15→22:26)
[2019-05-18 08:12] LABS: Absolute Lymphocyte Count 1.38 X10^3/uL (0.83-4.51); Absolute Neutrophil Count 11.3 X10^3/uL (2.0-7.7); Basophil# 0.03 X10^3/uL; Basophil% 0.2 % (0-1); Eosinophil# 0.05 X10^3/uL; Eosinophils% 0.4 % (0-5); Hematocrit 38.6 % (40-54); Hemoglobin 13.2 g/dL (13.0-16.5); Lymphocyte # 1.38 X10^3/ul (4.0); Lymphocyte % 10.2 % (19-41); Mean Corp Hgb Conc 34.2 g/dL (32-36); Mean Corpuscular Hgb 31.5 pg (27.0-32.0); Mean Corpuscular Volume 92.1 fL (80-94); Mean Platelet Vol. 11.4 fl (6.2-12.0); Monocyte# 0.68 X10^3/uL; NRBC Flagged by Analyzer 0 % (0-5); Neutrophil # 11.32 X10^3/uL (2.7-7.7); Neutrophil % 83.6 % (47-70); Platelet Count 117 K/mm3 (150-450); RBC Distribution Width CV 14.1 % (11.6-14.6); RBC Distribution Width SD 47.5 fl (35.1-43.9); Red Blood Count 4.19 M/mm3 (4.6-6.2); White Blood Count 13.5 K/mm3 (4.4-11.0)
[2019-05-18] MEDS: Ceftriaxone 1 GM/50 ML BAG IV (09:38)
[2019-05-18] MEDS: Pantoprazole Sodium 40 MG Tablet PO (09:39)
[2019-05-18] MEDS: Atenolol 25 MG Tablet PO ×2 (09:39→21:35)
[2019-05-18] MEDS: Baclofen 10 MG Tablet 40 MG PO ×2 (09:39→21:35)
[2019-05-18] MEDS: Lisinopril 40 MG Tablet PO ×2 (09:39→21:35)
[2019-05-18] MEDS: Acetaminophen 325 MG Tablet 650 MG PO (09:51)
[2019-05-18] MEDS: guaiFENesin 10 ML UDC (200MG/10ML) 20 ML PO ×2 (09:51→17:56)
--- NOTE | 2019-05-18 10:18 | PN_ITS ---
Patient Problems: Active and Suspected Problems Infectious encephalopathy (Acute) UTI (urinary tract infection) (Acute) UTI (urinary tract infection) (Acute) Sepsis (Acute) Subjective: Patient seen and examined. He states he had an anxiety attack last night and this morning and became very short of breath requiring increasing amounts of oxygen. He was on 3 L of oxygen this morning. He is also supposed to be on CPAP but his has not brought his machine from home so he has not been using it was in the hospital. Patient states he is very anxious being here alone in the hospital and wants more medication to help him calm down. He denies chest pain, shortness of breath, palpitations, dizziness, nausea vomiting or diarrhea. Review of symptoms otherwise negative. Vitals/I&O's: Vital Signs Temp Pulse Resp BP Pulse Ox 99.1 F 93 24 H 152/69 H 95 05/18/19 09:34 05/18/19 09:34 05/18/19 09:34 05/18/19 09:34 05/18/19 09:34 Oxygen Flow Rate (L/min) 2 Oxygen Delivery Method Nasal Cannula Weight: 281 lb 12.012 oz Body Mass Index (BMI) 48.3 Intake and Output for Last 24 Hours 05/16/19 05/17/19 05/18/19 23:59 23:59 23:59 Intake Total 1550 / 1550 4398.75 / 4398.75 1606.25 / 1606.25 Output Total 500 / 500 3025 / 3025 250 / 250 Balance 1050 / 1050 1373.75 / 1373.75 1356.25 / 1356.25 General: Alert, Oriented x3, Cooperative, obese HEENT: Atraumatic, PERRLA, EOMI, Normocephalic Neck: Supple, No JVD, Negative Carotid Bruits Lungs: decreased breath sounds bibasally, no wheezes or crackles. Tachypneic, on 3L of oxygen Cardiovascular: Regular rate, No murmurs Abdomen: Bowel Sounds Present, Soft, Non Tender, Obese Extremities: No edema, Capillary Refill Less than 3 Seconds Skin: No rashes, No breakdown Musculoskeletal: No Tenderness to Palpation of Joints or Extremities Neurological: Cranial nerves II-XII grossly intact Psych/Mental Status:anxious Microbiology Past 72 Hours 05/16/19 17:17 Urine, Catheterized Urine Culture - Preliminary GNR Poss Pseudomonas sp 03/24/20 17:20 Stool C. difficile DNA Amplification - Final 05/16/19 23:00 Mucosa - Nasopharyngeal Respiratory Panel (PCR) - Final 05/16/19 17:00 Mucosa - Nose Influenza Types A,B Direct FA (RENEE) - Final Laboratory Results 05/18/19 05:56: Sodium 143, Potassium 3.4 L, Chloride 111 H, Carbon Dioxide 22.0, Anion Gap 10, BUN 8, Creatinine 0.51 L, Estim Creat Clear Calc 133.81, Est GFR (MDRD) Af Amer 216, Est GFR (MDRD) Non-Af 178, BUN/Creatinine Ratio 15.7, Glucose 114 H, Calcium 8.1 L 05/18/19 05:56: WBC 13.5 H, RBC 4.19 L, Hgb 13.2, Hct 38.6 L, MCV 92.1, MCH 31.5, MCHC 34.2, RDW Std Deviation 47.5 H, RDW Coeff of Jason 14.1, Plt Count 117 L, MPV 11.4, Immature Gran % (Auto) 0.600, Neut % (Auto) 83.6 H, Lymph % (Auto) 10.2 L, [place] % (Auto) 5.0, Eos % (Auto) 0.4, Baso % (Auto) 0.2, Absolute Neuts (auto) 11.3 H, Absolute Lymphs (auto) 1.38, Nucleated RBC % 0 Current Medications Acetaminophen (Tylenol) 650 mg PO Q6H PRN PRN PRN Reason: Pain Score 1-10/Temp > 100.7 F Last Admin: 05/18/19 09:51 Dose: 650 mg Documented by: Al Hydroxide/Mg Hydroxide (Mylanta Ii) 30 ml PO Q6H PRN PRN PRN Reason: Gastric Burning Albuterol Sulfate (Ventolin Aerosols) 2.5 mg INHALATION Q2H PRN PRN PRN Reason: Shortness of Breath/Wheezing Last Admin: 05/18/19 07:15 Dose: 2.5 mg Documented by: Atenolol (Tenormin (Beta Rodrigo)) 25 mg PO BID [facility] Last Admin: 05/18/19 09:39 Dose: 25 mg Documented by: Baclofen (Lioresal) 40 mg PO BID [facility] Last Admin: 05/18/19 09:39 Dose: 40 mg Documented by: Calamine/Phenol (Calmoseptine Ointment) 1 applic TOPICAL TID [facility]; Protocol Citalopram Hydrobromide (Celexa) 10 mg PO QHS [facility] Last Admin: 05/17/19 22:23 Dose: 10 mg Documented by: Dextrose (D50w Syringe) 0 gm IV X1 PRN; Protocol PRN Reason: Hypoglycemia Glucagon () 1 mg IM .X1 PRN PRN Reason: Hypoglycemia Guaifenesin (Robitussin) 20 ml PO Q4H PRN PRN PRN Reason: COUGH Last Admin: 05/18/19 09:51 Dose: 20 ml Documented by: Hydralazine HCl (Apresoline Iv) 10 mg IV Q4H PRN PRN PRN Reason: SBP > 160 Ceftriaxone Sodium (Rocephin) 1 gm in 50 mls @ 100 mls/hr IV Q24 [facility] Last Admin: 05/18/19 09:38 Dose: 100 mls/hr Documented by: Lisinopril (Zestril) 40 mg PO BID [facility] Last Admin: 05/18/19 09:39 Dose: 40 mg Documented by: Lorazepam (Ativan) 1 mg PO X1 ONE Stop: 05/18/19 10:18 Magnesium Hydroxide (Milk Of Magnesia) 30 ml PO DAILY PRN PRN PRN Reason: Constipation Melatonin (Melatonin) 3 mg PO QHS PRN PRN PRN Reason: INSOMNIA Morphine Sulfate () 2 mg IV Q3H PRN PRN PRN Reason: Pain Score 6-10/10 Nitroglycerin (Nitrostat) 0.4 mg SUBLINGUAL Q5M PRN PRN Reason: CARDIAC/CHEST PAIN Nutritional Formula (Lactose Free) (Ensure Enlive) 120 ml PO 4X/DAY [facility] Last Admin: 05/18/19 09:50 Dose: 120 ml Documented by: Ondansetron HCl (Zofran) 4 mg IV Q8H PRN PRN PRN Reason: NAUSEA/VOMITING Oxycodone HCl (Oxyir) 5 mg PO Q4H PRN PRN PRN Reason: Pain Score 4-5/10 Pantoprazole Sodium (Protonix) 40 mg PO DAILY [facility] Last Admin: 05/18/19 09:39 Dose: 40 mg Documented by: Pravastatin Sodium (Pravachol) 40 mg PO QHS [facility] Last Admin: 05/17/19 22:24 Dose: 40 mg Documented by: Prochlorperazine Edisylate (Compazine Iv) 5 mg IV Q4H PRN PRN PRN Reason: Breakthrough nausea/vomiting Psyllium Hydrophilic Mucilloid (Metamucil) 1 packet PO DAILY PRN PRN PRN Reason: Constipation Senna/Docusate Sodium (Senokot-S, Jany-Colace) 2 tablet PO BID PRN PRN PRN Reason: Constipation Sodium Chloride () 10 - 40 ml IV UD PRN PRN Reason: SALINE FLUSH Last Admin: 05/16/19 20:47 Dose: 10 ml Documented by: Tamsulosin HCl (Flomax) 0.4 mg PO DAILY@1730 [facility] Last Admin: 05/17/19 18:04 Dose: 0.4 mg Documented by: Throat Lozenges (Cepacol Sore Throat Lozenge) 1 lozenge MUCOUS MEM Q2H PRN PRN PRN Reason: SORE THROAT Tizanidine HCl (Zanaflex) 4 mg PO BID PRN PRN PRN Reason: MUSCLE SPASm Triamcinolone Acetonide (Triamcinolone Acetonide) 1 applic TOPICAL DAILY PRN PRN; Protocol PRN Reason: yeast infections Warfarin Sodium (Coumadin (Pbkc)) 5 mg PO MoWeFr@1700 [facility] Warfarin Sodium (Coumadin (Pbkc)) 6 mg PO SuTuThSa@1700 [facility] Last Admin: 05/17/19 18:04 Dose: 6 mg Documented by: STROKE Vital Signs/Narrative: Vital Signs Temp Pulse Resp BP Pulse Ox 05/18/19 09:34 99.1 F 93 24 H 152/69 H 95 05/18/19 07:12 92 18 95 Medical Necessity - Tobacco Use Smoking Status: Former smoker Tobacco Use: Cigarettes, Chew Assessment/Plan All Active Problems Infectious encephalopathy (Acute) UTI (urinary tract infection) (Acute) UTI (urinary tract infection) (Acute) Bacteremia (Acute) Hypokalemia (Acute) Hyponatremia (Acute) Supratherapeutic INR (Resolved) Hypomagnesemia (Resolved) Hypophosphatemia (Resolved) Acute delirium (Acute) Rhinitis (Acute) Dehydration (Acute) Sepsis (Acute) Clostridium difficile enterocolitis (Acute) 1. Sepsis due to UTI * wbc is down to 13.5. * urine culture growing possible Pseudomonas * blood cultures pending * on IV ceftriaxone. WIll continue for now * 2. Acute anxiety * patient says he had 2 panic attacks overnight, making him very short of breath. * pateint on 2-3L of oxygen; he has also not been using his CPAP, as he waits for his to bring his machine from home, and that also made him anxious * On citalopram. Will give as needed Ativan. * Will get stat chest x-ray to evaluate shortness of breath. * 3. Hypertension: * Poorly controlled. * Blood pressure has been in the 150s and 160 systolic. * Atenolol 25 mg twice daily and lisinopril 40 mg twice daily. * IV hydralazine PRN * 4. Hyperlipidemia: On statin. 5. KAYLEIGH: Supposed be on CPAP nightly but had to bring in machine. Also does not know his settings. 6. History of cerebral palsy: Stable. PT OT on board. 7. 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 INR is pending. * DVT prophylaxis; on coumadin. INR therapeutic Inpatient E&M: 20585 Subs Hosp L2
--- NOTE | 2019-05-18 10:25 | RAD_ITS ---
STUDY: X-RAY CHEST REASON FOR EXAM: Male, 59 years old. SOB TECHNIQUE: Single AP portable view of the chest. COMPARISON: Comparison is made with prior examination dated May 16, 2019. FINDINGS: Since prior study, the vascular congestion mild degree of CHF has cleared. Minimal residual changes persist at the lung bases suggestive of linear atelectasis and/or possible scarring. There is moderate cardiac enlargement. Normal mediastinum and cassidy. Normal visualized pulmonary arteries. There is atherosclerotic tortuosity of the aortic arch and descending thoracic aorta. There are diffuse degenerative changes of the visualized thoracic spine. Normal visualized ribs, clavicles, and shoulders. There is no demonstrated abnormality of the visualized soft tissue structures of the upper abdomen. RAD/Chest 1 View (Portable) IMPRESSION: The vascular congestion/mild CHF has improved. Minimal residual changes persist at the lung bases. Electronically Signed: Gt Barajas, at 10:53 EDT , Service support ,
[2019-05-18] MEDS: 0.9% Saline Lock 10 ML Syringe IV (10:57)
[2019-05-18] MEDS: LORazepam 1 MG Tablet PO (11:08)
[2019-05-18 11:45] LABS: International Normalized Ratio 3.1; Prothrombin Time (Protime)PT. 32.2 SECONDS (11.7-14.9)
--- NOTE | 2019-05-18 13:12 | CASEMGMT ---
NIKA CM Note: Intro role of CM to patient. Pt continues to wear 2-3L NC. Weaned from 6L. Pt reportedly had anxiety issues last night and required increased oxygen. Pt has Cpap at home and should be wearing at night, however did not bring in. Per charge nurse, family is bringing this afternoon. Pt has KAYLEIGH, Cerebal Palsy. DME list given and discussed possible need for Oxygen on discharge. Pt understands and is agreeable if needed. Prefers [facility] for DME provider for Oxygen. NIKA MARR let pt know testing would be done tomorrow and pt updated on oxygen plan. Katina HOGUE ACM.
--- NOTE | 2019-05-18 13:12 | CASEMGMT ---
RN CM Note: Intro role of CM to patient. DME list given and discussed possible need for Oxygen on discharge. Pt understands and is agreeable if needed. Prefers [facility] for DME provider for Oxygen. RN CM let pt know testing would be done tomorrow and pt updated on oxygen plan. Katina HOGUE ACM.
[2019-05-18] MEDS: Menthol/Lanolin/Calamine/Znox 113 GM Tube 1 APPLIC TOPICAL ×2 (15:06→21:35)
[2019-05-18] MEDS: Tamsulosin HCl 0.4 MG Capsule PO (17:56)
[2019-05-18] MEDS: Citalopram 10 MG Tablet PO (21:35)
[2019-05-18] MEDS: MELATONIN 3 MG TABLET PO (21:35)
[2019-05-18] MEDS: Pravastatin 40 MG Tablet PO (21:35)
[2019-05-19] MEDS: guaiFENesin 10 ML UDC (200MG/10ML) 20 ML PO ×2 (00:15→11:15)
--- NOTE | 2019-05-19 02:11 | CPS ---
Pt.'s using home CPAP unit (EPAP = 6) with a 3L oxygen bleed-in.
[2019-05-19 04:15] VITALS: BP 143/88; PULSE 82; RESP 20; TEMP 36.1; O2SAT 93
[2019-05-19] MEDS: Menthol/Lanolin/Calamine/Znox 113 GM Tube 1 APPLIC TOPICAL (06:25)
[2019-05-19] MEDS: Albuterol 2.5 MG/3 ML VIAL.NEB. INHALATION (07:37)
[2019-05-19 07:38] VITALS: PULSE 85; RESP 20; O2SAT 95
[2019-05-19 07:59] LABS: Absolute Lymphocyte Count 2.03 X10^3/uL (0.83-4.51); Absolute Neutrophil Count 4.7 X10^3/uL (2.0-7.7); Basophil# 0.02 X10^3/uL; Basophil% 0.3 % (0-1); Eosinophil# 0.32 X10^3/uL; Eosinophils% 4.1 % (0-5); Hematocrit 37.9 % (40-54); Hemoglobin 12.9 g/dL (13.0-16.5); Lymphocyte # 2.03 X10^3/ul (4.0); Mean Corpuscular Hgb 30.6 pg (27.0-32.0); Mean Corpuscular Volume 89.8 fL (80-94); Mean Platelet Vol. 10.5 fl (6.2-12.0); Monocyte# 0.62 X10^3/uL; Monocyte% 7.9 % (0-10); NRBC Flagged by Analyzer 0 % (0-5); Neutrophil # 4.73 X10^3/uL (2.7-7.7); Neutrophil % 60.7 % (47-70); Platelet Count 143 K/mm3 (150-450); RBC Distribution Width CV 14.6 % (11.6-14.6); RBC Distribution Width SD 47.1 fl (35.1-43.9); Red Blood Count 4.22 M/mm3 (4.6-6.2); White Blood Count 7.8 K/mm3 (4.4-11.0)
[2019-05-19 08:29] LABS: Anion Gap 8 (5-15); BUN 11 mg/dL (7-18); BUN/Creat Ratio 18.1 RATIO (10-20); Calcium,Total 8.5 mg/dL (8.5-10.1); Chloride 108 mmol/L (98-107); Creatinine, Serum 0.61 mg/dL (0.70-1.30); EST Glomerular Filtration Rate 145 mL/min (>60); Est Glom Filt Rate - Afr Amer 175 mL/min (>60); Estimated Creatinine Clearance 111.88 ml/min; Glucose 103 mg/dL (74-106); Potassium 3.5 mmol/L (3.5-5.1); Sodium Level 144 mmol/L (136-145)
[2019-05-19 08:44] VITALS: BP 160/84; PULSE 94; RESP 22; TEMP 36.9; O2SAT 92
[2019-05-19] MEDS: LORazepam 1 MG Tablet PO (08:48)
[2019-05-19] MEDS: Pantoprazole Sodium 40 MG Tablet PO (08:49)
[2019-05-19] MEDS: Lisinopril 40 MG Tablet PO (08:49)
[2019-05-19] MEDS: Baclofen 10 MG Tablet 40 MG PO (08:49)
[2019-05-19] MEDS: Atenolol 25 MG Tablet PO (08:50)
[2019-05-19] MEDS: Ceftriaxone 1 GM/50 ML BAG IV (08:57)
--- NOTE | 2019-05-19 09:54 | PCM.DC ---
- Discharge Diagnoses Current Active Problems: Current Active and Chronic Problems KAYLEIGH (obstructive sleep apnea) (Chronic) Infectious encephalopathy (Acute) UTI (urinary tract infection) (Acute) UTI (urinary tract infection) (Acute) Sepsis (Acute) You will use the following diet at home:: Cardiac Your food should be the consistency of: Regular Your liquids should be the consistency of: Regular/Thin Discharge Activity: Return to Normal Activity Weight Bearing Status: Weight bearing as tolerated Call your doctor if you observe: Fever of 101 or Higher, Shortness of breath, Dizziness, Swelling in the ankles Instructions: ED CYSTITIS Male Adult Allergies/Adverse Reactions: Allergies No Known Allergies Allergy (Verified 05/16/19 16:29) Medications to take at Discharge Atenolol [Tenormin (beta kartik)] 25 mg PO BID 08/12/14 Ergocalciferol [Vitamin D] 50,000 unit PO WE 08/12/14 Omeprazole [Prilosec] 40 mg PO DAILY 08/12/14 Pravastatin [Pravachol] 40 mg PO QHS 08/12/14 Nystatin [Mycostatin] 1 applic TOPICAL PRN PRN 09/14/15 Tizanidine HCl 4 mg PO BID PRN PRN 09/15/15 Acetaminophen [Tylenol Tablet] 650 mg PO Q4H PRN PRN #0 tablet 11/29/15 Tamsulosin HCl [Flomax] 0.4 mg PO DAILY@1730 01/11/17 Warfarin [Coumadin] 6 mg PO SUTUTHSA 01/11/17 Citalopram [Celexa] 10 mg PO QHS 08/18/17 Desoximetasone 0.25% [Topicort Crm 0.25%] 1 applic TOPICAL DAILY PRN PRN 08/18/17 Triamcinolone 0.5% Cream [Kenalog] 1 applicatio TOPICAL DAILY PRN PRN 08/18/17 Warfarin [Coumadin] 5 mg PO MOWEFR 08/18/17 Baclofen 40 mg PO BID 05/16/19 Lisinopril [Zestril] 40 mg PO BID 05/16/19 Cefdinir [Omnicef [equiv]] 300 mg PO Q12H #8 cap 05/19/19 The following prescriptions were given: Cefdinir [Omnicef [equiv]] 300 mg PO Q12H #8 cap Transmission Status: Pending to [facility] Primary Care Physician: Maribell Haley DO [Primary Care Provider] - Please follow up with your Primary Care Physician in: 1-2 weeks Test Results: Test results from this visit will be discussed in further detail at your follow-up appointment, if applicable. Proposed Discharge Date: 05/19/19
--- NOTE | 2019-05-19 10:02 | DS.PCM_ITS ---
Discharge Date and Diagnosis Date of Admission: 05/16/19 Date of Discharge: 05/19/19 - Primary Discharge Diagnosis Active and Suspected Problems Infectious encephalopathy (Acute) UTI (urinary tract infection) (Acute) UTI (urinary tract infection) (Acute) Sepsis (Acute) - Secondary Discharge Diagnosis Chronic Problems KAYLEIGH (obstructive sleep apnea) (Chronic) Sleep-disordered breathing (Chronic) UTI (urinary tract infection) (Chronic) Cerebral palsy (Chronic) HTN (hypertension) (Chronic) Recurrent deep venous thrombosis (Chronic) Hyperlipidemia (Chronic) Pulmonary embolism (Chronic) Status post laparoscopic cholecystectomy (Chronic) Hospital Course and Treatment Imaging Results: Diagnostic Data Chest X-Ray 05/18/19 10:25 IMPRESSION: The vascular congestion/mild CHF has improved. Minimal residual changes persist at the lung bases. Electronically Signed: Gt Karl, at 10:53 EDT , Service support , Operations: None Procedures: None Summary of Care Provided: The patient is a 59 year old M with a past medical history as outlined was admitted through the ED on 05/16/2019 with a complaint of confusion. He was also found to have a fever. had recently had influenza A but patient's rapid influenza screen was negative. He did report some mild shortness of breath and temperature was 102.4 Fahrenheit. He also complained of burning with urination. He was admitted and managed for sepsis due to UTI as well as acute metabolic encephalopathy due to UTI. Lactic acid was negative. He was started on IV Rocephin. Patient's fever subsequently resolved. Patient stay was complicated by a couple of anxiety attacks resulted in him being short of breath that he said this was because he had not been on his CPAP because his has not yet brought in the machine and he also felt anxious being alone in the hospital without any family with him. He was requiring oxygen at night on account of his sleep apnea but was transitioned to his CPAP machine after he was brought in. Urine grew Pseudomonas. Blood cultures were negative after 48 hours he also developed diarrhea but C. difficile done was negative. He remained stable and was discharged home on cefdinir 300 mg twice daily for 4 days. He is to follow up with his PCP in one week. He was also given a prescription for loperamide p.o. 2mg bid prn x 10 tablets on account of diarrhea. Patient seen and examined prior to discharge. He had no complaints. Review of systems otherwise negative. Labs and vitals reviewed. Home medication reviewed and reconciled. o/e: Vital Signs Height 5 ft 4 in Weight: 281 lb 12.012 oz Weight in Pounds 281.8 lbs Pulse Ox 91 Temperature 98.9 F Pulse Rate 93 Respiratory Rate 22 Blood Pressure 164/80 Blood Pressure Position Sitting General: Alert, Oriented x3, Cooperative, obese HEENT: Atraumatic, PERRLA, EOMI, Normocephalic Neck: Supple, No JVD, Negative Carotid Bruits Lungs: decreased breath sounds bibasally, no wheezes or crackles. on room air Cardiovascular: Regular rate, No murmursm, normal S1 and S2 Abdomen: Bowel Sounds Present, Soft, Non Tender, Obese Extremities: No edema, Capillary Refill Less than 3 Seconds Skin: No rashes, No breakdown Musculoskeletal: No Tenderness to Palpation of Joints or Extremities Neurological: Cranial nerves II-XII grossly intact Psych/Mental Status:anxious Plan is as above, for discharge home today. - Physical Exam Vitals/I&O's: Vital Signs Temp Pulse Resp BP Pulse Ox 98.4 F 94 22 H 160/84 H 92 05/19/19 08:44 05/19/19 08:44 05/19/19 08:44 05/19/19 08:44 05/19/19 08:44 Oxygen Flow Rate (L/min) 3 Oxygen Delivery Method Room Air Weight: 281 lb 12.012 oz Body Mass Index (BMI) 48.3 Intake and Output for Last 24 Hours 05/17/19 05/18/19 05/19/19 23:59 23:59 23:59 Intake Total 4398.75 / 4398.75 1896.25 / 170 / 170 Output Total 3025 / 3025 525 / 525 Balance 1373.75 / 1373.75 1371.25 / 1491.25 170 / 170 Microbiology Past 72 Hours 05/16/19 17:17 Urine, Catheterized Urine Culture - Final Pseudomonas aeroginosa 05/16/19 16:55 Blood Culture (Wb) - Anticubital Left Blood Culture - Preliminary No growth in 48 hours. 05/16/19 17:20 Blood Culture (Wb) - Left Hand Blood Culture - Preliminary No growth in 48 hours. 05/17/19 17:20 Stool C. difficile DNA Amplification - Final 05/16/19 23:00 Mucosa - Nasopharyngeal Respiratory Panel (PCR) - Final 05/16/19 17:00 Mucosa - Nose Influenza Types A,B Direct FA (RENEE) - Final Laboratory Results 05/18/19 10:55: PT 32.2 H, INR 3.1 05/19/19 07:50: WBC 7.8, RBC 4.22 L, Hgb 12.9 L, Hct 37.9 L, MCV 89.8, MCH 30.6, MCHC 34.0, RDW Std Deviation 47.1 H, RDW Coeff of Jason 14.6, Plt Count 143 L, MPV 10.5, Immature Gran % (Auto) 1.000 H, Neut % (Auto) 60.7, Lymph % (Auto) 26.0, [place] % (Auto) 7.9, Eos % (Auto) 4.1, Baso % (Auto) 0.3, Absolute Neuts (auto) 4.7, Absolute Lymphs (auto) 2.03, Nucleated RBC % 0 05/19/19 07:50: Sodium 144, Potassium 3.5, Chloride 108 H, Carbon Dioxide 28.0, Anion Gap 8, BUN 11, Creatinine 0.61 L, Estim Creat Clear Calc 111.88, Est GFR (MDRD) Af Amer 175, Est GFR (MDRD) Non-Af 145, BUN/Creatinine Ratio 18.1, Glucose 103, Calcium 8.5 Current Medications Acetaminophen (Tylenol) 650 mg PO Q6H PRN PRN PRN Reason: Pain Score 1-10/Temp > 100.7 F Last Admin: 05/18/19 09:51 Dose: 650 mg Documented by: Al Hydroxide/Mg Hydroxide (Mylanta Ii) 30 ml PO Q6H PRN PRN PRN Reason: Gastric Burning Albuterol Sulfate (Ventolin Aerosols) 2.5 mg INHALATION Q2H PRN PRN PRN Reason: Shortness of Breath/Wheezing Last Admin: 05/19/19 07:37 Dose: 2.5 mg Documented by: Atenolol (Tenormin (Beta Rodrigo)) 25 mg PO BID [facility]A Last Admin: 05/19/19 08:50 Dose: 25 mg Documented by: Baclofen (Lioresal) 40 mg PO BID [facility] Last Admin: 05/19/19 08:49 Dose: 40 mg Documented by: Calamine/Phenol (Calmoseptine Ointment) 1 applic TOPICAL TID [facility]; Protocol Last Admin: 05/19/19 06:25 Dose: 1 applicatio Documented by: Citalopram Hydrobromide (Celexa) 10 mg PO QHS [facility] Last Admin: 05/18/19 21:35 Dose: 10 mg Documented by: Dextrose (D50w Syringe) 0 gm IV X1 PRN; Protocol PRN Reason: Hypoglycemia Glucagon () 1 mg IM .X1 PRN PRN Reason: Hypoglycemia Guaifenesin (Robitussin) 20 ml PO Q4H PRN PRN PRN Reason: COUGH Last Admin: 05/19/19 00:15 Dose: 20 ml Documented by: Hydralazine HCl (Apresoline Iv) 10 mg IV Q4H PRN PRN PRN Reason: SBP > 160 Ceftriaxone Sodium (Rocephin) 1 gm in 50 mls @ 100 mls/hr IV Q24 [facility] Last Infusion: 05/19/19 09:27 Dose: Infused Documented by: Lisinopril (Zestril) 40 mg PO BID [facility] Last Admin: 05/19/19 08:49 Dose: 40 mg Documented by: Magnesium Hydroxide (Milk Of Magnesia) 30 ml PO DAILY PRN PRN PRN Reason: Constipation Melatonin (Melatonin) 3 mg PO QHS PRN PRN PRN Reason: INSOMNIA Last Admin: 05/18/19 21:35 Dose: 3 mg Documented by: Morphine Sulfate () 2 mg IV Q3H PRN PRN PRN Reason: Pain Score 6-10/10 Nitroglycerin (Nitrostat) 0.4 mg SUBLINGUAL Q5M PRN PRN Reason: CARDIAC/CHEST PAIN Nutritional Formula (Lactose Free) (Ensure Enlive) 120 ml PO 4X/DAY [facility] Last Admin: 05/19/19 08:52 Dose: Not Given Documented by: Ondansetron HCl (Zofran) 4 mg IV Q8H PRN PRN PRN Reason: NAUSEA/VOMITING Oxycodone HCl (Oxyir) 5 mg PO Q4H PRN PRN PRN Reason: Pain Score 4-5/10 Pantoprazole Sodium (Protonix) 40 mg PO DAILY [facility] Last Admin: 05/19/19 08:49 Dose: 40 mg Documented by: Pravastatin Sodium (Pravachol) 40 mg PO QHS [facility] Last Admin: 05/18/19 21:35 Dose: 40 mg Documented by: Prochlorperazine Edisylate (Compazine Iv) 5 mg IV Q4H PRN PRN PRN Reason: Breakthrough nausea/vomiting Psyllium Hydrophilic Mucilloid (Metamucil) 1 packet PO DAILY PRN PRN PRN Reason: Constipation Senna/Docusate Sodium (Senokot-S, Jany-Colace) 2 tablet PO BID PRN PRN PRN Reason: Constipation Sodium Chloride () 10 - 40 ml IV UD PRN PRN Reason: SALINE FLUSH Last Admin: 05/18/19 10:57 Dose: 10 ml Documented by: Tamsulosin HCl (Flomax) 0.4 mg PO DAILY@1730 [facility] Last Admin: 05/18/19 17:56 Dose: 0.4 mg Documented by: Throat Lozenges (Cepacol Sore Throat Lozenge) 1 lozenge MUCOUS MEM Q2H PRN PRN PRN Reason: SORE THROAT Tizanidine HCl (Zanaflex) 4 mg PO BID PRN PRN PRN Reason: MUSCLE SPASm Triamcinolone Acetonide (Triamcinolone Acetonide) 1 applic TOPICAL DAILY PRN PRN; Protocol PRN Reason: yeast infections Warfarin Sodium (Coumadin (Pbkc)) 5 mg PO MoWeFr@1700 [facility] Warfarin Sodium (Coumadin (Pbkc)) 6 mg PO SuTuThSa@1700 [facility] Last Admin: 05/17/19 18:04 Dose: 6 mg Documented by: Discharge Diet: Low fat/ Low Cholesterol Discharge Activity: Return to Normal Activity Weight Bearing Status: Weight bearing as tolerated Call your doctor if you observe: Fever of 101 or Higher, Shortness of breath, Dizziness, Swelling in the ankles Home Medications: Medications to take at Discharge Atenolol [Tenormin (beta rodrigo)] 25 mg PO BID 08/12/14 Ergocalciferol [Vitamin D] 50,000 unit PO WE 08/12/14 Omeprazole [Prilosec] 40 mg PO DAILY 08/12/14 Pravastatin [Pravachol] 40 mg PO QHS 08/12/14 Nystatin [Mycostatin] 1 applic TOPICAL PRN PRN 09/14/15 Tizanidine HCl 4 mg PO BID PRN PRN 09/15/15 Acetaminophen [Tylenol Tablet] 650 mg PO Q4H PRN PRN #0 tablet 11/29/15 Tamsulosin HCl [Flomax] 0.4 mg PO DAILY@1730 01/11/17 Warfarin [Coumadin] 6 mg PO SUTUTHSA 01/11/17 Citalopram [Celexa] 10 mg PO QHS 08/18/17 Desoximetasone 0.25% [Topicort Crm 0.25%] 1 applic TOPICAL DAILY PRN PRN 08/18/17 Triamcinolone 0.5% Cream [Kenalog] 1 applicatio TOPICAL DAILY PRN PRN 08/18/17 Warfarin [Coumadin] 5 mg PO MOWEFR 08/18/17 Baclofen 40 mg PO BID 05/16/19 Lisinopril [Zestril] 40 mg PO BID 05/16/19 Cefdinir [Omnicef [equiv]] 300 mg PO Q12H #8 cap 05/19/19 Loperamide HCl [Loperamide] 2 mg PO BID PRN PRN #10 tab 05/19/19 Following Prescrptions Were Given to Patient: Loperamide HCl [Loperamide] 2 mg PO BID PRN PRN #10 tab PRN Reason: Diarrhea Transmission Status: Received by [facility] Cefdinir [Omnicef [equiv]] 300 mg PO Q12H #8 cap Transmission Status: Received by [facility] Primary Care Physician: Maribell Haley DO [Primary Care Provider] - Please follow up with your Primary Care Physician in: 1-2 weeks Patient Instructions: ED CYSTITIS Male Adult Disposition: Home with Home Health Minutes spent on discharge:: 40 Patient Condition:: Stable Medical Necessity - Tobacco Use Smoking Status: Former smoker Tobacco Use: Cigarettes, Chew Meaningful Use Info Meaningful Use Diagnoses (Choose all that apply): None applicable Inpatient E&M: 20794 Disch Hosp
--- NOTE | 2019-05-19 10:40 | CASEMGMT ---
Social Work Note Pt is discharging home today. BREANA placed a call to [facility] and left message updating her pt is going to be discharged home today. BREANA faxed discharge paperwork to Macie. Yolanda Swift GRANTS SPECIALIST, AGENCY OWNER
--- NOTE | 2019-05-19 10:56 | CASEMGMT ---
NIKA MARR updated that patient will be discharging home today. NIKA MARR called [facility] to updated and fax discharge paperwork. NIKA MARR also called [facility] and updated on discharge today as well.
[2019-05-19 13:29] VITALS: BP 164/80; PULSE 93; RESP 22; TEMP 37.2; O2SAT 91
[2019-05-19] MEDS: Loperamide 2 MG Capsule PO (13:32)
--- NOTE | 2019-05-19 14:12 | NURSING ---
Unable to find cell phone at discharge. It is a black flip phone. Patient stating he has been calling his from it all morning 05/18. Noticed patient had been using room phone everytime this RN was in the room. This RN and ESTABLISHMENT GUIDE had not seen call phone all morning. Called and asked when the last time patient had called her from his cell phone and she stated yesterday or the day before. I can't remember. did state that he had it in the ED and put it in his red hooded sweatshirt when she left from the ED. Room and belongings searched. Patient's cell phone called and was not heard. Will leave a note. Prior to leaving patient also wondered where his shoes were and stated they were black slippers. Those as well were not with patient. Patient then stated since he came to the hospital by squad that he probably did not wear shoes.
== END 2019-05-19 14:04 | disposition home health service (06) | DRG 871 ==
LOC: ED 18:40 → MS3 19:05
PROVIDERS: Physician Assistant; Admitting Provider Family Medicine; Emergency Provider Emergency Medicine; PCP Internal Medicine; Visit Provider Student in an Organized Health Care Education/Training Program
DX: A41.9 Sepsis, unspecified organism (principal); G93.41 Metabolic encephalopathy; N39.0 Urinary tract infection, site not specified; B96.5 Pseudomonas (aeruginosa) (mallei) (pseudomallei) as the cause of diseases classified elsewhere; Z68.42 Body mass index [BMI] 45.0-49.9, adult; E87.6 Hypokalemia; E86.0 Dehydration; R19.7 Diarrhea, unspecified; G80.9 Cerebral palsy, unspecified; I89.0 Lymphedema, not elsewhere classified; I10 Essential (primary) hypertension; E78.5 Hyperlipidemia, unspecified; G47.33 Obstructive sleep apnea (adult) (pediatric); F41.0 Panic disorder [episodic paroxysmal anxiety]; E66.01 Morbid (severe) obesity due to excess calories; F17.210 Nicotine dependence, cigarettes, uncomplicated; Z79.01 Long term (current) use of anticoagulants; Z79.899 Other long term (current) drug therapy; Z86.718 Personal history of other venous thrombosis and embolism; Z86.711 Personal history of pulmonary embolism
CPT/HCPCS: 36415; 51702; 71045; 80048; 80053; 81001; 83605; 85025; 85610; 85730; 87040; 87077; 87086; 87088; 87184; 87186; 87493; 87633; 87804; 93005; 94002; 94640; 97162; 97166; 99251; 99285; J7030; A4216; G0463

== ENCOUNTER 2019-09-28 13:14 | Outpatient (RCR) | payer MEDICARE, MEDICAID, SELFPAY ==
[2019-05-16 20:02] VITALS: BMI 48.3
[2019-09-28 14:11] LABS: Absolute Lymphocyte Count 1.86 X10^3/uL (0.83-4.51); Absolute Neutrophil Count 4.3 X10^3/uL (2.0-7.7); Basophil# 0.03 X10^3/uL; Basophil% 0.4 % (0-1); Eosinophil# 0.28 X10^3/uL; Hematocrit 44.8 % (40-54); Hemoglobin 15.2 g/dL (13.0-16.5); Lymphocyte # 1.86 X10^3/ul (4.0); Lymphocyte % 26.6 % (19-41); Mean Corp Hgb Conc 33.9 g/dL (32-36); Mean Corpuscular Hgb 30.5 pg (27.0-32.0); Mean Platelet Vol. 11.6 fl (6.2-12.0); Monocyte# 0.51 X10^3/uL; Monocyte% 7.3 % (0-10); NRBC Flagged by Analyzer 0 % (0-5); Neutrophil # 4.29 X10^3/uL (2.7-7.7); Neutrophil % 61.3 % (47-70); Platelet Count 171 K/mm3 (150-450); RBC Distribution Width CV 15.7 % (11.6-14.6); RBC Distribution Width SD 50.6 fl (35.1-43.9); Red Blood Count 4.98 M/mm3 (4.6-6.2)
[2019-09-28 14:18] LABS: International Normalized Ratio 2.6; Prothrombin Time (Protime)PT. 27.8 SECONDS (11.7-14.9)
[2019-09-28 14:53] LABS: Vitamin D,25 Hydroxy 57.7 ng/mL
[2019-09-28 15:00] LABS: ALB/GLOB Ratio 0.8 RATIO (0.9-2.4); AST(SGOT) 21 U/L (15-37); Alanine Aminotransfer ALT/SGPT 33 U/L (16-61); Albumin, Serum 3.2 g/dL (3.2-5.0); Alkaline Phosphatase 61 U/L (45-117); Anion Gap 6 (5-15); BUN 12 mg/dL (7-18); Calcium,Total 8.6 mg/dL (8.5-10.1); Chloride 111 mmol/L (98-107); Cholesterol 179 mg/dL (200); Creatinine, Serum 0.67 mg/dL (0.70-1.30); EST Glomerular Filtration Rate 131 mL/min (>60); Est Glom Filt Rate - Afr Amer 158 mL/min (>60); Glucose 112 mg/dL (74-106); High Density Lipoprotein 43 mg/dL; Potassium 3.6 mmol/L (3.5-5.1); Protein, Total 7.2 g/dL (6.4-8.2); Sodium Level 142 mmol/L (136-145); Thyroid Stim Hormone (TSH) 0.89 uIU/mL (0.358-3.74); Triglycerides 165 mg/dL; Very Low Density Lipoprotein 33 mg/dL (5-40)
== END 2019-09-28 18:00 | disposition home or self-care (01) ==
LOC: LAB 13:14
PROVIDERS: PCP Internal Medicine; Referring Provider Internal Medicine; Visit Provider Internal Medicine
DX: E11.9 Type 2 diabetes mellitus without complications (principal); E55.9 Vitamin D deficiency, unspecified; Z79.01 Long term (current) use of anticoagulants; E78.00 Pure hypercholesterolemia, unspecified
CPT/HCPCS: 36415; 80053; 80061; 82306; 84443; 85025; 85610

== ENCOUNTER 2019-11-17 11:01 | Inpatient (IN) | payer MEDICARE, MEDICAID, SELFPAY ==
[2019-05-16 20:02] VITALS: BMI 48.3
[2019-11-17] VITALS (17 sets, daily range): BP systolic 111–161; BP diastolic 54–97; PULSE 86–119; RESP 11–40; TEMP 36.5–39.5; O2SAT 92–97; BMI 52.2; BMI 50.5
--- NOTE | 2019-11-17 11:20 | EKG12_ITS ---
Test Reason : Blood Pressure : / mmHG Vent. Rate : 106 BPM Atrial Rate : 106 BPM P-R Int : 140 ms QRS Dur : 084 ms QT Int : 334 ms P-R-T Axes : 028 066 012 degrees QTc Int : 443 ms Sinus tachycardia Low voltage QRS Borderline ECG Confirmed by ESE RODRIGUEZ, PHU ([id number]), editor trade journal JUNIOR BELTRE ([id number]) on 11/24/2019 12:51:16 P M Referred By: NIKOLAY Confirmed By:KAREEM MULLIGAN MD
--- NOTE | 2019-11-17 11:21 | ED.DCSUM_ITS ---
History of Present Illness Chief Complaint: Complaint Informant: Patient Onset: Yesterday Current Severity: Moderate Maximum Severity: Moderate Narrative: Patient presents secondary to dysuria, frequency, and fever that he noticed yesterday. He has a history of cerebral palsy and gets urinary tract infections 2 or 3 times a year. He states his doctor called in Cipro for him yesterday but he has not been able to get to the pharmacy to pick it up. He has not yet taken anything for his fever. - Past Medical History (1) Clostridium difficile enterocolitis Status: Resolved (2) Cerebral palsy Status: Chronic (3) HTN (hypertension) Status: Chronic (4) Hyperlipidemia Status: Chronic (5) KAYLEIGH (obstructive sleep apnea) Status: Chronic (6) Pulmonary embolism Status: Chronic (7) Recurrent deep venous thrombosis Status: Chronic Past Medical History - Allergies and Home Meds Allergies/Adverse Reactions: Allergies No Known Allergies Allergy (Verified 11/17/19 11:09) Primary Care Physician: Maribell Haley DO [Primary Care Provider] - Surgical History: appendectomy, cholecystectomy, - - Multiple hip and bilateral extremity surgeries for contractures because of cerebral palsy. Smoking Status: Former smoker - Family History Maternal Family History: Reports: No pertinent history Paternal Family History: Reports: No pertinent history Review of Systems General: Reports: Fever Eyes: Denies: Visual changes - bilaterally ENT: Denies: Bilateral ear pain Cardiovascular: Denies: Chest pain Respiratory: Denies: Dyspnea, Cough Gastrointestinal: Reports: Nausea. Denies: Abdominal pain, Vomiting Genitourinary: Reports: Dysuria, Frequency Musculoskeletal: Denies: Back pain, Extremity Pain Skin: Denies: Rash Hematologic: Denies: Easy bruising, Easy bleeding Allergy: Denies: Uticaria Physical Exam Vital Signs/Narrative: Vital Signs Temp Pulse Resp BP Pulse Ox 11/17/19 11:06 103 F H 106 H 18 143/77 H 96 11/17/19 11:02 103 F H 106 H 19 H 143/97 H 96 Inital Vital Signs reviewed: Yes General: Well nourished, Well developed Head: Normocephalic ENT: Moist mucous membranes Neck: Supple Cardiovascular: Tachycardia Respiratory: No distress, CTA bilaterally Abdomen: Normal bowel sounds, - - Abdomen is distended and firm. Skin: Normal color Neurological: Alert, Oriented x3 Psychological: Normal affect Diagnostic/Tx/Re-eval Impressions Chest X-Ray 11/17/19 11:50 IMPRESSION: Hyperinflation. Mild vascular congestion. Stable linear atelectasis and/or scarring at the lung bases. Electronically Signed: Gt Barajas, at 12:15 EDT , Service support , 11/17/19 11:50 Chest 1 View (Portable) [RAD] Stat Laboratory Results 11/17/19 11/17/19 11/17/19 11:15 11:15 11:15 WBC 16.4 H RBC 4.78 Hgb 14.6 Hct 42.9 MCV 89.7 MCH 30.5 MCHC 34.0 RDW Std Deviation 48.0 H RDW Coeff of Jason 14.6 Plt Count 129 L MPV 11.5 Immature Gran % (Auto) 0.600 Neut % (Auto) 80.6 H Lymph % (Auto) 8.9 L [place] % (Auto) 9.0 Eos % (Auto) 0.7 Baso % (Auto) 0.2 Absolute Neuts (auto) 13.2 H Absolute Lymphs (auto) 1.46 Nucleated RBC % 0 Differential Comment SCANNED PT 18.9 H INR 1.6 APTT 36.0 Sodium 134 L Potassium 3.1 L Chloride 101 Carbon Dioxide 25.0 Anion Gap 8 BUN 10 Creatinine 0.77 Estim Creat Clear Calc 88.63 Est GFR (MDRD) Af Amer 134 Est GFR (MDRD) Non-Af 111 BUN/Creatinine Ratio 13.0 Glucose 156 H Lactic Acid Calcium 8.4 L Total Bilirubin 2.80 H AST 26 ALT 31 Alkaline Phosphatase 63 Total Protein 7.4 Albumin 3.1 L Globulin 4.3 H Albumin/Globulin Ratio 0.7 L Urine Color Urine Clarity Urine pH Ur Specific [place] Urine Protein Urine Glucose (UA) Urine Ketones Urine Occult Blood Urine Nitrite Urine Bilirubin Urine Urobilinogen Ur Leukocyte Esterase Urine RBC Urine WBC Ur Squamous Epith Cells Urine Bacteria Urine Mucus COVID-19 (PA) 11/17/19 11/17/19 11/17/19 11:15 12:10 13:45 WBC RBC Hgb Hct MCV MCH MCHC RDW Std Deviation RDW Coeff of Jason Plt Count MPV Immature Gran % (Auto) Neut % (Auto) Lymph % (Auto) [place] % (Auto) Eos % (Auto) Baso % (Auto) Absolute Neuts (auto) Absolute Lymphs (auto) Nucleated RBC % Differential Comment PT INR APTT Sodium Potassium Chloride Carbon Dioxide Anion Gap BUN Creatinine Estim Creat Clear Calc Est GFR (MDRD) Af Amer Est GFR (MDRD) Non-Af BUN/Creatinine Ratio Glucose Lactic Acid 1.6 Calcium Total Bilirubin AST ALT Alkaline Phosphatase Total Protein Albumin Globulin Albumin/Globulin Ratio Urine Color Yellow Urine Clarity Clear Urine pH 6.5 Ur Specific [place] 1.005 Urine Protein Negative Urine Glucose (UA) Normal Urine Ketones 15 H Urine Occult Blood 50 H Urine Nitrite Negative Urine Bilirubin Negative Urine Urobilinogen Normal Ur Leukocyte Esterase 500 H Urine RBC 0-5 SEEN Urine WBC 25-50 SEEN Ur Squamous Epith Cells 0-5 SEEN Urine Bacteria 0 SEEN Urine Mucus 0 SEEN COVID-19 ([place]) Not Detected - EKG Initial EKG Interpretation: Sinus Tachycardia - Sinus tach at 106 with no acute ischemia. - Medical Decision Making Patient was given Tylenol which did bring his fever down. He was given IV fluids. Lactic acid is less than 2. He does have significant white count. Urine does show some white cells however 0 bacteria noted. Blood and urine cultures were sent. Covid test was sent and negative. At this time I do not have a definitive source for his fever. He did have a documented fever of 103 with a white count of 16. Patient does have previous admissions with sepsis and I am concerned with his chronic underlying medical conditions that he will worsen. I will give him a dose of Zosyn which would cover his last 3 urinary infections. I will recommend observation until his initial culture results are back. ED Disposition - Plan for ED Patient: Disposition: Acute Care Hospital [facility] Diagnosis: SIRS (systemic inflammatory response syndrome) Referrals: Maribell Haley DO [Primary Care Provider] -
[2019-11-17 11:34] LABS: Absolute Lymphocyte Count 1.46 X10^3/uL (0.83-4.51); Absolute Neutrophil Count 13.2 X10^3/uL (2.0-7.7); Basophil# 0.03 X10^3/uL; Basophil% 0.2 % (0-1); Eosinophil# 0.12 X10^3/uL; Eosinophils% 0.7 % (0-5); Hematocrit 42.9 % (40-54); Hemoglobin 14.6 g/dL (13.0-16.5); Lymphocyte # 1.46 X10^3/ul (4.0); Lymphocyte % 8.9 % (19-41); Mean Corpuscular Hgb 30.5 pg (27.0-32.0); Mean Corpuscular Volume 89.7 fL (80-94); Mean Platelet Vol. 11.5 fl (6.2-12.0); Monocyte# 1.47 X10^3/uL; NRBC Flagged by Analyzer 0 % (0-5); Neutrophil # 13.19 X10^3/uL (2.7-7.7); Neutrophil % 80.6 % (47-70); POSITIVE MORPHOLOGY YES; Platelet Count 129 K/mm3 (150-450); RBC Distribution Width CV 14.6 % (11.6-14.6); Red Blood Count 4.78 M/mm3 (4.6-6.2); White Blood Count 16.4 K/mm3 (4.4-11.0)
[2019-11-17 11:36] LABS: International Normalized Ratio 1.6; Prothrombin Time (Protime)PT. 18.9 SECONDS (11.7-14.9)
[2019-11-17 11:42] LABS: ALB/GLOB Ratio 0.7 RATIO (0.9-2.4); AST(SGOT) 26 U/L (15-37); Alanine Aminotransfer ALT/SGPT 31 U/L (16-61); Albumin, Serum 3.1 g/dL (3.2-5.0); Alkaline Phosphatase 63 U/L (45-117); Anion Gap 8 (5-15); BUN 10 mg/dL (7-18); Calcium,Total 8.4 mg/dL (8.5-10.1); Chloride 101 mmol/L (98-107); Creatinine, Serum 0.77 mg/dL (0.70-1.30); EST Glomerular Filtration Rate 111 mL/min (>60); Est Glom Filt Rate - Afr Amer 134 mL/min (>60); Estimated Creatinine Clearance 88.63 ml/min; Globulin 4.3 g/dL (2.2-4.2); Glucose 156 mg/dL (74-106); Potassium 3.1 mmol/L (3.5-5.1); Protein, Total 7.4 g/dL (6.4-8.2); Sodium Level 134 mmol/L (136-145)
--- NOTE | 2019-11-17 11:50 | RAD_ITS ---
STUDY: X-RAY CHEST REASON FOR EXAM: Male, 59 years old. Fever, urinary complications TECHNIQUE: Single AP portable view of the chest. COMPARISON: Comparison is made with prior study dated 05/18/2019. FINDINGS: Hyperinflation. Stable mild increased markings at the lung bases suggestive of atelectasis and/or scarring. Mild degree of vascular congestion is seen. Blunting of the left costophrenic angle. There is moderate cardiac enlargement. Normal mediastinum and cassidy. Normal visualized pulmonary arteries. Normal visualized aortic arch and descending thoracic aorta. There are diffuse degenerative changes of the visualized thoracic spine. Normal visualized ribs, clavicles, and shoulders. There is no demonstrated abnormality of the visualized soft tissue structures of the upper abdomen. RAD/Chest 1 View (Portable) IMPRESSION: Hyperinflation. Mild vascular congestion. Stable linear atelectasis and/or scarring at the lung bases. Electronically Signed: Gt Barajas, at 12:15 EDT , Service support ,
[2019-11-17 11:51] LABS: Lactic Acid 1.6 mmol/L (0.4-1.9)
[2019-11-17] MEDS: Acetaminophen 500 MG Tablet 1000 MG PO (11:53)
[2019-11-17] MEDS: 0.9% Normal Saline 1,000 ML 150 ML IV ×2 (12:19→17:55)
[2019-11-17 12:24] LABS: Differential Indicated SCAN CRITERIA MET
[2019-11-17 12:25] LABS: Differential Comment SCANNED
[2019-11-17 12:26] LABS: Bacteria 0 SEEN /hpf (None Seen); Mucous, Urine 0 SEEN /hpf (<or=2+)
[2019-11-17 12:47] LABS: Color, Urine Yellow (Yellow); Glucose, Dipstick Normal (Normal); Ketone-Dipstick 15 mg/dl (Negative); Leukocyte Esterase-Dipstick 500 /ul (Negative); Nitrite-Dipstick Negative (Negative); Occult Blood-Urine 50 /ul (Negative); Protein-Dipstick Negative (Negative); Specific Gravity, Urine 1.005 (1.002-1.030); Urine Bilirubin Dipstick Negative (Negative); Urine Clarity Clear (Clear); Urine Urobilinogen Normal (Normal); Urine pH 6.5 (5.0 - 8.0)
[2019-11-17 13:12] LABS: Red Blood Cells-Urine 0-5 SEEN /hpf (0-5); Squamous Epithelial Cells - UA 0-5 SEEN /hpf (0-5); White Blood Cells 25-50 SEEN /hpf (0-5)
--- NOTE | 2019-11-17 16:29 | HP.PCM_ITS ---
History of Present Illness Date of Admission: 11/17/19 The patient is a 59 year old M with an extensive PMH as outlined. He was admitted through the ED on 11/17/2019 with a complaint of burning with urination and associated fever. Patient has a history of cerebral palsy and states he often gets UTIs about 2-3 times a year. He called his PCP to call in p.o. ciprofloxacin to the pharmacy for him. However patient felt too sick to go to the pharmacy to pick it up today. Review of systems otherwise negative. In the ED on admission, temperature was 103 Fahrenheit with pulse rate of 113, respiratory rate of 27 and blood pressure of 146/96. However at time of review, vitals were then temperature of 98.7 Fahrenheit with blood pressure of 144/80, pulse rate of 105 respiratory rate of 18. Was saturating at 96% on 4 L of oxygen. Chemistry showed sodium of 134 with potassium of 3.1 and creatinine of 0.77. CBC showed WBC of 16.4 globin of 14.6 with platelets of 129. Lactic acid was 1.6. UA showed 25-50 WBCs with 0 bacteria. He is being admitted to be managed for sepsis likely due to UTI. He was started on IV Zosyn in the ED. [] Past Medical History Past Medical History (Chronic Problems): Chronic Problems KAYLEIGH (obstructive sleep apnea) (Chronic) Sleep-disordered breathing (Chronic) UTI (urinary tract infection) (Chronic) Cerebral palsy (Chronic) HTN (hypertension) (Chronic) Recurrent deep venous thrombosis (Chronic) Hyperlipidemia (Chronic) Pulmonary embolism (Chronic) Status post laparoscopic cholecystectomy (Chronic) Allergies No Known Allergies Allergy (Verified 11/17/19 11:09) Home Medications: Ambulatory Orders Medication Instructions Recorded Atenolol [Tenormin (beta kartik)] 25 mg PO BID 08/12/14 Ergocalciferol [Vitamin D] 50,000 unit PO WE 08/12/14 Omeprazole [Prilosec] 40 mg PO DAILY 08/12/14 Pravastatin [Pravachol] 40 mg PO QHS 08/12/14 Nystatin [Mycostatin] 1 applic TOPICAL PRN PRN 09/14/15 Tizanidine HCl 4 mg PO BID PRN PRN 09/15/15 Tamsulosin HCl [Flomax] 0.4 mg PO DAILY@1730 01/11/17 Citalopram [Celexa] 10 mg PO QHS 08/18/17 Desoximetasone 0.25% [Topicort Crm 1 applic TOPICAL DAILY PRN PRN 08/18/17 0.25%] Triamcinolone 0.5% Cream [Kenalog] 1 applicatio TOPICAL DAILY PRN PRN 08/18/17 Warfarin [Coumadin] 5 mg PO DAILY 08/18/17 Baclofen 40 mg PO BID 05/16/19 Lisinopril [Zestril] 40 mg PO BID 05/16/19 Warfarin Sodium 1 mg PO DAILY 11/17/19 Surgical History: appendectomy, cholecystectomy, - - Multiple hip and bilateral extremity surgeries for contractures because of cerebral palsy. Psychiatric History: No pertinent psych hx Smoking Status: Former smoker Tobacco Use: Cigarettes, Chew - *Family History Maternal History Items: No pertinent history Paternal History Items: No pertinent history Review of Systems Constitutional: Reports: Chills, Fever, Malaise, Weakness, Fatigue. Denies: Anorexia Eyes: Denies: Blurred vision HEENT: Denies: Head Aches, Sinus Congestion, Sinus Drainage Cardiovascular: Denies: Chest Pain, Palpitations Respiratory: Denies: Cough, Shortness of breath at rest, Sputum production Gastrointestinal: Denies: Abdominal Pain, Nausea, Vomiting Genitourinary: Reports: Dysuria, Frequency Musculoskeletal: Denies: Joint Pain, Joint Tenderness Skin: Denies: Rash, Wounds Neurological: Denies: Numbness, Tingling, Focal weakness Psychiatric: Denies: Anxiety, Depression, Homicidal Ideations, Suicidal Ideations VTE Information - Inpt Only VTE Present on Admission: No VTE Pharm Prophylaxis ordered?: Yes Patient Problems: Active and Suspected Problems SIRS (systemic inflammatory response syndrome) (Acute) - Physical Exam Vitals/I&O's: Vital Signs Temp Pulse Resp BP Pulse Ox 98.7 F 105 H 18 144/80 H 96 11/17/19 15:00 11/17/19 15:00 11/17/19 15:00 11/17/19 15:00 11/17/19 15:00 Oxygen Flow Rate (L/min) 4 Oxygen Delivery Method Nasal Cannula Weight: 304 lb 0.279 oz Body Mass Index (BMI) 52.2 General: Alert, Oriented x3, Cooperative, No apparent distress HEENT: Atraumatic, PERRLA, EOMI, Normocephalic Oral: Moist Mucosa Neck: Supple, No JVD, Negative Carotid Bruits Lungs: Clear to auscultation, Normal air movement, No rhonchi, No wheeze Cardiovascular: Regular Rhythm, Normal S1, Normal S2, Tachycardic Abdomen: Bowel Sounds Present, Soft, Non Tender, - - abdomen distended Extremities: No clubbing, No cyanosis, No edema, Capillary Refill Less than 3 Seconds Skin: No rashes, No breakdown Musculoskeletal: No Tenderness to Palpation of Joints or Extremities Lymphatic: No Cervical, Supraclavicular, or Inguinal Adenopathy Neurological: Cranial nerves II-XII grossly intact, Neuro grossly intact, Motor Exam 5/5 strength throughout Psych/Mental Status: Normal Affect, Appropriate, Alert and oriented to time, place, person, mood and affect Laboratory Results 11/17/19 11:15: WBC 16.4 H, RBC 4.78, Hgb 14.6, Hct 42.9, MCV 89.7, MCH 30.5, MCHC 34.0, RDW Std Deviation 48.0 H, RDW Coeff of Jason 14.6, Plt Count 129 L, MPV 11.5, Immature Gran % (Auto) 0.600, Neut % (Auto) 80.6 H, Lymph % (Auto) 8.9 L, [place] % (Auto) 9.0, Eos % (Auto) 0.7, Baso % (Auto) 0.2, Absolute Neuts (auto) 13.2 H, Absolute Lymphs (auto) 1.46, Nucleated RBC % 0, Differential Comment SCANNED 11/17/19 11:15: PT 18.9 H, INR 1.6, APTT 36.0 11/17/19 11:15: Sodium 134 L, Potassium 3.1 L, Chloride 101, Carbon Dioxide 25.0, Anion Gap 8, BUN 10, Creatinine 0.77, Estim Creat Clear Calc 88.63, Est GFR (MDRD) Af Amer 134, Est GFR (MDRD) Non-Af 111, BUN/Creatinine Ratio 13.0, Glucose 156 H, Calcium 8.4 L, Total Bilirubin 2.80 H, AST 26, ALT 31, Alkaline Phosphatase 63, Total Protein 7.4, Albumin 3.1 L, Globulin 4.3 H, Albumin/Globulin Ratio 0.7 L 11/17/19 11:15: Lactic Acid 1.6 11/17/19 12:10: Urine Color Yellow, Urine Clarity Clear, Urine pH 6.5, Ur Specific [place] 1.005, Urine Protein Negative, Urine Glucose (UA) Normal, Urine Ketones 15 H, Urine Occult Blood 50 H, Urine Nitrite Negative, Urine Bilirubin Negative, Urine Urobilinogen Normal, Ur Leukocyte Esterase 500 H, Urine RBC 0-5 SEEN, Urine WBC 25-50 SEEN, Ur Squamous Epith Cells 0-5 SEEN, Urine Bacteria 0 SEEN, Urine Mucus 0 SEEN 11/17/19 13:45: COVID-19 (PA) Not Detected Diagnostic Data Chest X-Ray 11/17/19 11:50 IMPRESSION: Hyperinflation. Mild vascular congestion. Stable linear atelectasis and/or scarring at the lung bases. Electronically Signed: Gt Barajas, at 12:15 EDT , Service support , Current Medications Sodium Chloride () 1,000 mls @ 150 mls/hr IV .[id number] ROSAURA Last Admin: 11/17/19 12:19 Dose: 150 mls/hr Documented by: Piperacillin Sod/Tazobactam (Sod 4.5 gm/ Sodium Chloride) 100 mls @ 200 mls/hr IV X1 ONE Stop: 11/17/19 16:42 Assessment/Plan All Active Problems Infectious encephalopathy (Acute) UTI (urinary tract infection) (Acute) SIRS (systemic inflammatory response syndrome) (Acute) UTI (urinary tract infection) (Acute) Bacteremia (Acute) Hypokalemia (Acute) Hyponatremia (Acute) Supratherapeutic INR (Resolved) Hypomagnesemia (Resolved) Hypophosphatemia (Resolved) Acute delirium (Acute) Rhinitis (Acute) Dehydration (Acute) Sepsis (Acute) Clostridium difficile enterocolitis (Resolved) 59 y/o admitted with a complaint of burning with urination and frequency # Sepsis due to UTI * To PCU with telemetry. His lactic acid was only 1.6. * SIRS criteria is 3 out of 4 with fever, tachycardia and elevated white cell count. * UA showed 25-50 wbc but no bacteria * hydrate with IVF NS * started on IV zosyn; will continue. * blood and urine cultures pending * # Hypokalemia; K is 3.1. Will replace and monitor #Hypertension; on atenolol and lisinopril. # History of PE: on coumadin. INR is 1.6 # elevated bilirubin: Total suellen is 2.8. And ALT are within normal limits. Will trend and monitor. #Hyperlipidemia: On statin #Cerebral palsy: Consult PT OT. Otherwise stable. #KAYLEIGH: On CPAP nightly. DVT prophylaxis: Lovenox CODE STATUS:full code * Patient and stepdaughter counseled extensively about different types of CODE STATUS including full code, DNR CCA and DNR CCA. * Patient elects to be full code. * Total [id number] time 16 minutes. Inpatient E&M: 99433 Init Hosp L3 Procedures: 01476 Advncd Care Plan 30 Min
--- NOTE | 2019-11-17 16:46 | NURSING ---
PCU SIRS KORAM
[2019-11-17] MEDS: Nystatin Ointment 1 APPLIC TOPICAL (20:26)
[2019-11-17] MEDS: Atenolol 25 MG Tablet PO (20:30)
[2019-11-17] MEDS: Pravastatin 40 MG Tablet PO (20:30)
[2019-11-17] MEDS: Citalopram 10 MG Tablet PO (20:30)
[2019-11-17] MEDS: Lisinopril 40 MG Tablet PO (20:30)
[2019-11-17] MEDS: Baclofen 10 MG Tablet 40 MG PO (20:30)
[2019-11-17] MEDS: Acetaminophen 325 MG Tablet 650 MG PO (20:37)
[2019-11-18] VITALS (15 sets, daily range): BP systolic 113–172; BP diastolic 55–87; PULSE 85–105; RESP 18–38; TEMP 36.8–39.6; O2SAT 93–98
[2019-11-18] MEDS: 0.9% Normal Saline 1,000 ML 150 ML IV ×2 (00:05→05:57)
[2019-11-18] MEDS: Acetaminophen 325 MG Tablet 650 MG PO ×2 (03:41→15:50)
[2019-11-18 06:42] LABS: Absolute Lymphocyte Count 0.99 X10^3/uL (0.83-4.51); Absolute Neutrophil Count 9.1 X10^3/uL (2.0-7.7); Basophil# 0.02 X10^3/uL; Basophil% 0.2 % (0-1); Eosinophil# 0.08 X10^3/uL; Eosinophils% 0.7 % (0-5); Hemoglobin 13.5 g/dL (13.0-16.5); Lymphocyte # 0.99 X10^3/ul (4.0); Mean Corp Hgb Conc 32.9 g/dL (32-36); Mean Corpuscular Volume 91.1 fL (80-94); Mean Platelet Vol. 11.7 fl (6.2-12.0); Monocyte# 0.78 X10^3/uL; Monocyte% 7.1 % (0-10); NRBC Flagged by Analyzer 0 % (0-5); Neutrophil # 9.09 X10^3/uL (2.7-7.7); Neutrophil % 82.5 % (47-70); Platelet Count 110 K/mm3 (150-450); RBC Distribution Width CV 14.9 % (11.6-14.6); RBC Distribution Width SD 50.3 fl (35.1-43.9)
[2019-11-18 06:51] LABS: International Normalized Ratio 1.9; Prothrombin Time (Protime)PT. 20.9 SECONDS (11.7-14.9)
[2019-11-18 07:07] LABS: ALB/GLOB Ratio 0.7 RATIO (0.9-2.4); AST(SGOT) 33 U/L (15-37); Alanine Aminotransfer ALT/SGPT 36 U/L (16-61); Albumin, Serum 2.7 g/dL (3.2-5.0); Alkaline Phosphatase 55 U/L (45-117); Anion Gap 4 (5-15); BUN 9 mg/dL (7-18); BUN/Creat Ratio 13.2 RATIO (10-20); Chloride 112 mmol/L (98-107); Creatinine, Serum 0.68 mg/dL (0.70-1.30); EST Glomerular Filtration Rate 127 mL/min (>60); Est Glom Filt Rate - Afr Amer 153 mL/min (>60); Estimated Creatinine Clearance 100.36 ml/min; Glucose 149 mg/dL (74-106); Potassium 3.2 mmol/L (3.5-5.1); Protein, Total 6.7 g/dL (6.4-8.2); Sodium Level 142 mmol/L (136-145)
--- NOTE | 2019-11-18 07:11 | RAD_ITS ---
STUDY: X-RAY CHEST REASON FOR EXAM: Male, 59 years old. FEVER, HX UTI, CEREBRAL PALSY TECHNIQUE: Single AP portable view of the chest. COMPARISON: Comparison is made with prior study dated 11/17/2019. FINDINGS: EKG electrodes are seen. Stable mild increased markings at the lung bases suggestive of atelectasis and/or scarring. The vascular congestion has improved. There is no demonstrated pleural abnormality. There is moderate cardiac enlargement. Normal mediastinum and cassidy. Normal visualized pulmonary arteries. Normal visualized aortic arch and descending thoracic aorta. There are diffuse degenerative changes of the visualized thoracic spine. Normal visualized ribs, clavicles, and shoulders. There is no demonstrated abnormality of the visualized soft tissue structures of the upper abdomen. RAD/Chest 1 View (Portable) IMPRESSION: Stable mild increased markings at the lung bases. The vascular congestion has improved. Electronically Signed: Gt Barajas, at 11:18 EDT , Service support ,
[2019-11-18 07:53] LABS: Magnesium 1.7 mg/dL (1.6-2.6)
[2019-11-18] MEDS: Lisinopril 40 MG Tablet PO ×2 (08:51→21:28)
[2019-11-18] MEDS: Pantoprazole Sodium 40 MG Tablet PO (08:52)
[2019-11-18] MEDS: Tamsulosin HCl 0.4 MG Capsule PO (08:52)
[2019-11-18] MEDS: Atenolol 25 MG Tablet PO ×2 (08:52→21:28)
[2019-11-18] MEDS: Baclofen 10 MG Tablet 40 MG PO ×2 (08:53→21:27)
[2019-11-18] MEDS: Nystatin Ointment 1 APPLIC TOPICAL (09:33)
--- NOTE | 2019-11-18 10:35 | CASEMGMT ---
RN TEJINDER Face to Face with patient for initial transition planning/care coordination assessment. RN TEJINDER introduced self and role at [facility]. Patient lying in bed, alert and oriented. Patient willing to participate in assessment and is able to answer all questions appropriately. Care providers, pharmacy, and demographics verified. Patient wishes to discharge home with resumption of his aides and HHC. Patient states he has no further needs or concerns at this time. CM to follow for discharge planning needs that may arise. PCP: Sudha Specialists: none Preferred Pharmacy: [facility] Retail Insurance: [employer] Prescription Benefit: yes Living Will/HPOA: none LNOK: Living Arrangements: Patient lives with in a first floor apt, ramp to enter the home. Patient states he is 1 assist for ADLs which is aides assist him with care. Transportation: or [place] DME/HHC: Patient states that he has shower chair, BSC, grab bars, wheelchair, medical alert, cpap. Will monitor patient for need for home oxygen. Patient states he has HHC through [facility] and aides through [facility]. Patient is active with waiver program and CM is Dena Gordon. Disposition Plan: Patient to discharge home with resumption of care, family support, and follow-up plans in place. Yolanda HOGEU, RN, CM
--- NOTE | 2019-11-18 10:49 | ECHOCS_ITS ---
Reason For Study: Dyspnea/SOB Procedure This was a 2D Doppler, Color Flow transthoracic echocardiogram. The study was technically difficult. Contrast injection was performed. Exam performed portable in patient room. Left Ventricle Normal LV size. The estimated ejection fraction is 60 %. No evidence for diastolic dysfunction. No regional wall motion abnormalities noted. Right Ventricle Normal RV size. Normal systolic function. Atria Normal left atrium. Normal right atrium. Mitral Valve Mitral valve not well visualized. There is no mitral valve stenosis. No mitral valve insufficiency. Tricuspid Valve The tricuspid valve is not well visualized. Unable to estimate RV systolic pressure due to inadequate jet, pulmonary artery pressure probably normal. Aortic Valve The aortic valve is not well visualized. unable to assess for . No aortic valve insufficiency. Pulmonic Valve The pulmonic valve is not well visualized. Pericardium/Pleural No pericardial effusion. Medication Diluted definity 3ml given slow IV push to enhance endocardial definition. MMode/2D Measurements & Calculations LVIDd: 4.5 cm IVSd: 1.1 cm LVIDs: 3.1 cm LVPWd: 1.3 cm FS: 32.1 % Time Measurements MV dec time: 0.20 sec Doppler Measurements & Calculations MV E max rakan: 105.3 cm/sec Lat Peak E' Rakan: 12.5 cm/sec Med Peak E' Rakan: 10.9 cm/sec MV A max rakan: 66.9 cm/sec E/E' lat: 8.4 E/E' med: 9.7 MV E/A: 1.6 MV V2 max: 119.7 cm/sec MV P1/2t max rakan: 119.2 cm/sec MV max P.7 mmHg MV P1/2t: 59.5 msec MV V2 mean: 61.1 cm/sec MV mean P.9 mmHg MV dec slope: 586.4 cm/sec2 MV V2 VTI: 22.3 cm MVA(P1/2t): 3.7 cm2 Interpretation Summary The estimated ejection fraction is 60 %. No evidence for diastolic dysfunction. The study was technically difficult. Contrast injection was performed. The study was technically difficult. Contrast injection was performed. Ordering Physician: Bonnie Sanders Performed By: Aleksander Small RCS
--- NOTE | 2019-11-18 11:19 | CASEMGMT ---
Addendum entered by Ron Wong 11/18/19 12:20: Pt may need Oxygen @ discharge. NIKA MARR to room to discuss DME companies with pt and he was provided w/list of local DME companies. Pt states he prefers [facility]. Green sheet placed on chart with instructions for setting up Home O2 through [facility] and for resumption of HHC if pt would discharge home over the weekend. Original Note: NIKA MARR NOTE: Call placed to [facility]. They are aware pt has been admitted to [facility]. They state pt is active with them and receiving senior living and OT services. Resumption of HHC services order placed. [facility]: Rafa HOGUE RN, CM
[2019-11-18] MEDS: Furosemide 40 MG/4 ML Vial IV (11:23)
[2019-11-18] MEDS: 0.9% Saline Lock 10 ML Syringe IV (11:28)
[2019-11-18 11:32] LABS: BNP,B-Type NATRIURETIC PEPTIDE 60.1 pg/mL (0-100)
--- NOTE | 2019-11-18 12:32 | PN_ITS ---
Patient Problems: Active and Suspected Problems SIRS (systemic inflammatory response syndrome) (Acute) Subjective: Patient seen and examined. Appears dyspneic at rest although denies significant shortness of breath. Reports recent intermittent cough. Denies further dysuria. Denies fever, chills. - Physical Exam Vitals/I&O's: Vital Signs Temp Pulse Resp BP Pulse Ox 99.5 F H 92 20 H 141/72 H 98 11/18/19 09:56 11/18/19 09:56 11/18/19 09:56 11/18/19 09:56 11/18/19 09:56 Oxygen Flow Rate (L/min) 2.0 Oxygen Delivery Method Nasal Cannula Weight: 294 lb 12.128 oz Body Mass Index (BMI) 50.5 Intake and Output for Last 24 Hours 11/16/19 11/17/19 11/18/19 23:59 23:59 23:59 Intake Total 1660 / 1660 2697.5 / 2697.5 Output Total 134 / 134 Balance 1660 / 1660 2563.5 / 2563.5 General: Alert, Oriented x3, Cooperative HEENT: Atraumatic, PERRLA, EOMI, Normocephalic Oral: Dry Mucosa Neck: Supple, No JVD, Negative Carotid Bruits Lungs: Clear to auscultation, Diminished, Tachypneic Cardiovascular: Regular rate, No murmurs Abdomen: Bowel Sounds Present, Soft, Non Tender, Obese Extremities: No clubbing, No cyanosis, - - Chronic lymphedema bilateral lower extremities Skin: No rashes, No breakdown Musculoskeletal: No Tenderness to Palpation of Joints or Extremities Neurological: Cranial nerves II-XII grossly intact, Neuro grossly intact Psych/Mental Status: Normal Affect, Appropriate Microbiology Past 72 Hours 11/18/19 11:40 Urine, Random Legionella Antigen - Final 11/18/19 11:40 Urine, Random Streptococcus pneumoniae Antigen (M - Final 11/17/19 12:10 Urine Catheter - Catheter Urine Culture - Preliminary GNR lactose litigation coordinator Laboratory Results 11/17/19 12:10: Urine Color Yellow, Urine Clarity Clear, Urine pH 6.5, Ur Specific [place] 1.005, Urine Protein Negative, Urine Glucose (UA) Normal, Urine Ketones 15 H, Urine Occult Blood 50 H, Urine Nitrite Negative, Urine Bilirubin Negative, Urine Urobilinogen Normal, Ur Leukocyte Esterase 500 H, Urine RBC 0-5 SEEN, Urine WBC 25-50 SEEN, Ur Squamous Epith Cells 0-5 SEEN, Urine Bacteria 0 SEEN, Urine Mucus 0 SEEN 11/17/19 13:45: COVID-19 (PA) Not Detected 11/18/19 05:50: WBC 11.0, RBC 4.50 L, Hgb 13.5, Hct 41.0, MCV 91.1, MCH 30.0, MCHC 32.9, RDW Std Deviation 50.3 H, RDW Coeff of Jason 14.9 H, Plt Count 110 L, MPV 11.7, Immature Gran % (Auto) 0.500, Neut % (Auto) 82.5 H, Lymph % (Auto) 9.0 L, [place] % (Auto) 7.1, Eos % (Auto) 0.7, Baso % (Auto) 0.2, Absolute Neuts (auto) 9.1 H, Absolute Lymphs (auto) 0.99, Nucleated RBC % 0 11/18/19 05:50: PT 20.9 H, INR 1.9 11/18/19 05:50: Sodium 142, Potassium 3.2 L, Chloride 112 H, Carbon Dioxide 26.0, Anion Gap 4 L, BUN 9, Creatinine 0.68 L, Estim Creat Clear Calc 100.36, Est GFR (MDRD) Af Amer 153, Est GFR (MDRD) Non-Af 127, BUN/Creatinine Ratio 13.2, Glucose 149 H, Calcium 8.0 L, Total Bilirubin 1.80 H, AST 33, ALT 36, Alkaline Phosphatase 55, Total Protein 6.7, Albumin 2.7 L, Globulin 4.0, Albumin/Globulin Ratio 0.7 L 11/18/19 05:50: Magnesium 1.7 11/18/19 05:50: B-Natriuretic Peptide 60.1 11/18/19 11:06: MRSA (PCR) Pending 11/18/19 11:23: Troponin I < 0.015 Current Medications Acetaminophen (Tylenol) 650 mg PO Q6H PRN PRN PRN Reason: Pain Score 1-10/Temp > 100.7 F Last Admin: 11/18/19 03:41 Dose: 650 mg Documented by: Atenolol (Tenormin (Beta Rodrigo)) 25 mg PO BID ROSAURA Last Admin: 11/18/19 08:52 Dose: 25 mg Documented by: Baclofen (Lioresal) 40 mg PO BID [facility] Last Admin: 11/18/19 08:53 Dose: 40 mg Documented by: Citalopram Hydrobromide (Celexa) 10 mg PO QHS [facility] Last Admin: 11/17/19 20:30 Dose: 10 mg Documented by: Ergocalciferol (Vitamin D) 50,000 unit PO [facility] Piperacillin Sod/Tazobactam (Sod 3.375 gm/ Sodium Chloride) 50 mls @ 12.5 mls/hr IV Q8 [facility] Last Infusion: 11/18/19 10:52 Dose: Infused Documented by: Lisinopril (Zestril) 40 mg PO BID [facility] Last Admin: 11/18/19 08:51 Dose: 40 mg Documented by: Nystatin (Mycostatin) 1 applic TOPICAL BID PRN PRN; Protocol PRN Reason: YEAST INFECTION Last Admin: 11/18/19 09:33 Dose: 1 applic Documented by: Ondansetron HCl (Zofran) 4 mg IV Q8H PRN PRN PRN Reason: NAUSEA/VOMITING Pantoprazole Sodium (Protonix) 40 mg PO DAILY [facility] Last Admin: 11/18/19 08:52 Dose: 40 mg Documented by: Pravastatin Sodium (Pravachol) 40 mg PO QHS [facility] Last Admin: 11/17/19 20:30 Dose: 40 mg Documented by: Sodium Chloride () 10 - 40 ml IV UD PRN PRN Reason: SALINE FLUSH Last Admin: 11/18/19 11:28 Dose: 10 ml Documented by: Tamsulosin HCl (Flomax) 0.4 mg PO DAILY@1730 [facility] Last Admin: 11/18/19 08:52 Dose: 0.4 mg Documented by: Tizanidine HCl (Zanaflex) 4 mg PO BID PRN PRN PRN Reason: MUSCLE SPASMS Warfarin Sodium (Jantoven) 6 mg PO DAILY@1700 [facility] Medical Necessity - Tobacco Use Smoking Status: Former smoker Tobacco Use: Cigarettes, Chew Assessment/Plan All Active Problems Infectious encephalopathy (Acute) UTI (urinary tract infection) (Acute) SIRS (systemic inflammatory response syndrome) (Acute) UTI (urinary tract infection) (Acute) Bacteremia (Acute) Hypokalemia (Acute) Hyponatremia (Acute) Supratherapeutic INR (Resolved) Hypomagnesemia (Resolved) Hypophosphatemia (Resolved) Acute delirium (Acute) Rhinitis (Acute) Dehydration (Acute) Sepsis (Acute) Clostridium difficile enterocolitis (Resolved) 1. Sepsis secondary to gram-negative cystitis-preliminary urine culture growing GNR, low colony count. Previous urine cultures positive for ESBL klebsiella pneumoniae and Pseudomonas. Continue IV Zosyn pending final cultures. Unclear if acute infection versus colonization, will await final cultures. Repeat chest x-ray no other evidence of infection at this time. COVID negative. MRSA PCR negative. 2. Acute hypoxia/shortness of breath-chest x-ray with vascular congestion, follow-up imaging shows improvement. No focal infiltrate. IV Lasix x1. Echocardiogram ordered. BNP normal. CTA ordered given history of PE with subtherapeutic INR with hypoxia and dyspnea. 3. History of severe C. difficile colitis in 2016 following antibiotic treatment for UTI. 4. Physical debility secondary to cerebral palsy- PT/OT. Patient is wheelchair- bound. Case management consult for discharge planning 5. Chronic lymphedema-Quique wrap bilateral lower extremities. Patient has lymphedema pumps at home. 6. Hypertension-stable, continue home lisinopril, atenolol regimen. 7. Hyperlipidemia-continue statin. 8. BPH-continue home Flomax regimen. 9. GERD-continue PPI. 10. Depression-continue home Celexa regimen. 11. History of DVT/PE-INR currently subtherapeutic. CTA ordered as noted above. 12. Morbid obesity-nutrition consult. Encourage diet modifications. 13. KAYLEIGH-continue CPAP. DVT prophylaxis-Coumadin. This patient was seen by CARLOS Bucio under the supervision of Dr. Wynn.
[2019-11-18 12:40] LABS: M R Staph aureus DNA By PCR Negative (Negative); Probe Check PASS; Specimen Processing Control PASS
--- NOTE | 2019-11-18 12:45 | CT_ITS ---
STUDY: CTA CHEST REASON FOR EXAM: Male, 59 years old. HYPOXIA. H/O RECURRENT PE/ DVT RADIATION DOSAGE (If Supplied By Facility): CTDIvol = ( 15.04 ) mGy, DLP = ( 591.30 ) mGycm TECHNIQUE: The examination was performed with the intravenous administration of IV 100mL Isovue-370. Post-processing of the angiographic images was performed, with multiplanar reformation and 3D reconstruction. Individualized dose optimization techniques were used for this CT. COMPARISON: Comparison is made with prior study dated 08/18/2017. FINDINGS: Disturbance of intraluminal filling defect in branches of the right upper lobe pulmonary artery in keeping with pulmonary embolism. Normal thoracic aorta and visualized great vessels. There is no demonstrated aortic dissection. Normal heart and pericardium. Normal mediastinum. Normal hilar regions. Normal visualized trachea and bronchi. The lungs are well expanded. Increased interstitial markings in both lungs more prominent in the lower lobes with the minimal pleural thickening suggestive of pleural scarring. Normal pleura. Normal chest wall structures. There are degenerative changes of thoracic spine. Normal visualized upper abdomen. CT/CTA Chest W/WO Contrast IMPRESSION: Filling defects in branches of the right upper lobe pulmonary artery in keeping with the localized pulmonary embolism. Stable increased markings in the lung bases suggestive of scarring. Electronically Signed: Gt Barajas, at 15:36 EDT , Service support ,
--- NOTE | 2019-11-18 13:22 | CASEMGMT ---
SW called [facility] coverage line and spoke with Estefanía. Patient's case operator is Dena Gordon [phone]. Patient has companions of [place] aides 7 days a week. She could not figure out how many hours a day. However, patient was at [facility] in April and his aides were 7 days a week for 10 hours each day. She asked that we notify them when patient is discharged and fax d/c instructions. Valeri WHEAT MSW
--- NOTE | 2019-11-18 14:32 | NURSING ---
Read and Reviewed SN Documentation
[2019-11-18] MEDS: Enoxaparin 150 MG/ML Syringe 130 MG SC (15:50)
[2019-11-18 18:33] LABS: Procalcitonin 1.66 ng/mL (0.00-0.09)
[2019-11-18] MEDS: Citalopram 10 MG Tablet PO (21:27)
[2019-11-18] MEDS: Pravastatin 40 MG Tablet PO (21:27)
[2019-11-19] VITALS (16 sets, daily range): BP systolic 110–155; BP diastolic 51–76; PULSE 76–96; RESP 20–42; TEMP 36.8–37.4; O2SAT 94–97
[2019-11-19] MEDS: 0.9% Saline Lock 10 ML Syringe IV (02:00)
[2019-11-19 07:46] LABS: Absolute Lymphocyte Count 0.93 X10^3/uL (0.83-4.51); Absolute Neutrophil Count 3.5 X10^3/uL (2.0-7.7); Basophil# 0.01 X10^3/uL; Basophil% 0.2 % (0-1); Eosinophil# 0.02 X10^3/uL; Eosinophils% 0.4 % (0-5); Hemoglobin 13.8 g/dL (13.0-16.5); Lymphocyte # 0.93 X10^3/ul (4.0); Lymphocyte % 18.9 % (19-41); Mean Corp Hgb Conc 32.9 g/dL (32-36); Mean Corpuscular Hgb 29.9 pg (27.0-32.0); Mean Corpuscular Volume 90.9 fL (80-94); Mean Platelet Vol. 11.5 fl (6.2-12.0); Monocyte# 0.44 X10^3/uL; NRBC Flagged by Analyzer 0 % (0-5); Neutrophil # 3.49 X10^3/uL (2.7-7.7); Neutrophil % 71.1 % (47-70); Platelet Count 115 K/mm3 (150-450); RBC Distribution Width CV 15.2 % (11.6-14.6); RBC Distribution Width SD 50.7 fl (35.1-43.9); Red Blood Count 4.62 M/mm3 (4.6-6.2); White Blood Count 4.9 K/mm3 (4.4-11.0)
[2019-11-19 08:07] LABS: ALB/GLOB Ratio 0.6 RATIO (0.9-2.4); AST(SGOT) 37 U/L (15-37); Alanine Aminotransfer ALT/SGPT 49 U/L (16-61); Albumin, Serum 2.7 g/dL (3.2-5.0); Alkaline Phosphatase 51 U/L (45-117); Anion Gap 4 (5-15); BUN 13 mg/dL (7-18); BUN/Creat Ratio 17.2 RATIO (10-20); Calcium,Total 8.1 mg/dL (8.5-10.1); Chloride 107 mmol/L (98-107); Creatinine, Serum 0.75 mg/dL (0.70-1.30); EST Glomerular Filtration Rate 113 mL/min (>60); Est Glom Filt Rate - Afr Amer 137 mL/min (>60); Estimated Creatinine Clearance 90.99 ml/min; Globulin 4.2 g/dL (2.2-4.2); Glucose 140 mg/dL (74-106); Potassium 3.3 mmol/L (3.5-5.1); Protein, Total 6.9 g/dL (6.4-8.2); Sodium Level 139 mmol/L (136-145)
[2019-11-19 08:12] LABS: International Normalized Ratio 1.7
[2019-11-19] MEDS: Enoxaparin 150 MG/ML Syringe 130 MG SC ×2 (08:14→17:40)
[2019-11-19] MEDS: Lisinopril 40 MG Tablet PO ×2 (10:20→22:21)
[2019-11-19] MEDS: Baclofen 10 MG Tablet 40 MG PO ×2 (10:21→22:20)
[2019-11-19] MEDS: Atenolol 25 MG Tablet PO ×2 (10:21→22:21)
[2019-11-19] MEDS: Pantoprazole Sodium 40 MG Tablet PO (10:22)
--- NOTE | 2019-11-19 12:20 | PN_ITS ---
Patient Problems: Active and Suspected Problems SIRS (systemic inflammatory response syndrome) (Acute) Subjective: Patient seen and examined. Reports mild improvement in shortness of breath. Discussed in length transitioning from Coumadin to novel anticoagulant given recurrent PE and difficulty obtaining therapeutic INR. Patient is going to discuss with . He denies further fever. Denies urinary symptoms. - Physical Exam Vitals/I&O's: Vital Signs Temp Pulse Resp BP Pulse Ox 98.8 F 89 30 H 123/54 H 95 11/19/19 11:53 11/19/19 11:53 11/19/19 11:53 11/19/19 11:53 11/19/19 11:53 Oxygen Flow Rate (L/min) 2 Oxygen Delivery Method Nasal Cannula Weight: 294 lb 12.128 oz Body Mass Index (BMI) 50.5 Intake and Output for Last 24 Hours 11/17/19 11/18/19 11/19/19 23:59 23:59 23:59 Intake Total 1660 / 1660 4287.5 / 4287.5 732 / 732 Output Total 2058 / 2058 350 / 350 Balance 1660 / 1660 2228.5 / 2228.5 382 / 382 General: Alert, Oriented x3, Cooperative HEENT: Atraumatic, PERRLA, EOMI, Normocephalic Neck: Supple, No JVD, Negative Carotid Bruits Lungs: Clear to auscultation, Diminished, Tachypneic Cardiovascular: Regular rate, No murmurs Abdomen: Bowel Sounds Present, Soft, Non Tender, Non-Distended Extremities: No clubbing, No cyanosis, Capillary Refill Less than 3 Seconds, - - Chronic lymphedema bilateral lower extremities Skin: No rashes, No breakdown Musculoskeletal: No Tenderness to Palpation of Joints or Extremities Neurological: Cranial nerves II-XII grossly intact, Neuro grossly intact Psych/Mental Status: Normal Affect, Appropriate Microbiology Past 72 Hours 11/17/19 12:10 Urine Catheter - Catheter Urine Culture - Preliminary GNR lactose air and water tester 11/18/19 11:40 Urine, Random Legionella Antigen - Final 11/18/19 11:40 Urine, Random Streptococcus pneumoniae Antigen (M - Final Laboratory Results 11/18/19 11:06: MRSA (PCR) Negative 11/18/19 14:10: Troponin I < 0.015 11/18/19 17:14: Troponin I < 0.015 11/18/19 17:14: Procalcitonin 1.66 H 11/19/19 06:47: WBC 4.9, RBC 4.62, Hgb 13.8, Hct 42.0, MCV 90.9, MCH 29.9, MCHC 32.9, RDW Std Deviation 50.7 H, RDW Coeff of Jason 15.2 H, Plt Count 115 L, MPV 11.5, Immature Gran % (Auto) 0.400, Neut % (Auto) 71.1 H, Lymph % (Auto) 18.9 L, [place] % (Auto) 9.0, Eos % (Auto) 0.4, Baso % (Auto) 0.2, Absolute Neuts (auto) 3.5, Absolute Lymphs (auto) 0.93, Nucleated RBC % 0 11/19/19 06:47: PT 19.0 H, INR 1.7 11/19/19 06:47: Sodium 139, Potassium 3.3 L, Chloride 107, Carbon Dioxide 28.0, Anion Gap 4 L, BUN 13, Creatinine 0.75, Estim Creat Clear Calc 90.99, Est GFR (MDRD) Af Amer 137, Est GFR (MDRD) Non-Af 113, BUN/Creatinine Ratio 17.2, Glucose 140 H, Calcium 8.1 L, Total Bilirubin 1.20 H, AST 37, ALT 49, Alkaline Phosphatase 51, Total Protein 6.9, Albumin 2.7 L, Globulin 4.2, Albumin/Globulin Ratio 0.6 L Current Medications Acetaminophen (Tylenol) 650 mg PO Q6H PRN PRN PRN Reason: Pain Score 1-10/Temp > 100.7 F Last Admin: 11/18/19 15:50 Dose: 650 mg Documented by: Atenolol (Tenormin (Beta Rodrigo)) 25 mg PO BID [facility] Last Admin: 11/19/19 10:21 Dose: 25 mg Documented by: Baclofen (Lioresal) 40 mg PO BID [facility] Last Admin: 11/19/19 10:21 Dose: 40 mg Documented by: Calamine/Phenol (Calmoseptine Ointment) 1 applic TOPICAL BID [facility]; Protocol Citalopram Hydrobromide (Celexa) 10 mg PO QHS [facility] Last Admin: 11/18/19 21:27 Dose: 10 mg Documented by: Enoxaparin Sodium (Lovenox) 130 mg SC Q12@0600,1800 [facility] Last Admin: 11/19/19 08:14 Dose: 130 mg Documented by: Ergocalciferol (Vitamin D) 50,000 unit PO WE [facility] Piperacillin Sod/Tazobactam (Sod 3.375 gm/ Sodium Chloride) 50 mls @ 12.5 mls/hr IV Q8 [facility] Last Infusion: 11/19/19 10:38 Dose: Infused Documented by: Sodium Chloride () 250 mls @ 15 mls/hr IV .[id number] PRN PRN Reason: Saline Flush Sodium Chloride () 250 mls @ 15 mls/hr IV .[id number] PRN PRN Reason: Additional IVPB Infusion Lisinopril (Zestril) 40 mg PO BID [facility] Last Admin: 11/19/19 10:20 Dose: 40 mg Documented by: Nystatin (Mycostatin) 1 applic TOPICAL BID PRN PRN; Protocol PRN Reason: YEAST INFECTION Last Admin: 11/18/19 09:33 Dose: 1 applic Documented by: Ondansetron HCl (Zofran) 4 mg IV Q8H PRN PRN PRN Reason: NAUSEA/VOMITING Pantoprazole Sodium (Protonix) 40 mg PO DAILY [facility] Last Admin: 11/19/19 10:22 Dose: 40 mg Documented by: Pravastatin Sodium (Pravachol) 40 mg PO QHS [facility] Last Admin: 11/18/19 21:27 Dose: 40 mg Documented by: Sodium Chloride () 10 - 40 ml IV UD PRN PRN Reason: SALINE FLUSH Last Admin: 11/19/19 02:00 Dose: 10 ml Documented by: Tamsulosin HCl (Flomax) 0.4 mg PO DAILY@1730 [facility] Last Admin: 11/18/19 08:52 Dose: 0.4 mg Documented by: Tizanidine HCl (Zanaflex) 4 mg PO BID PRN PRN PRN Reason: MUSCLE SPASMS Warfarin Sodium (Jantoven) 6 mg PO DAILY@1700 [facility] Last Admin: 11/18/19 16:57 Dose: 6 mg Documented by: Medical Necessity - Tobacco Use Smoking Status: Former smoker Tobacco Use: Cigarettes, Chew Assessment/Plan All Active Problems Infectious encephalopathy (Acute) UTI (urinary tract infection) (Acute) SIRS (systemic inflammatory response syndrome) (Acute) UTI (urinary tract infection) (Acute) Bacteremia (Acute) Hypokalemia (Acute) Hyponatremia (Acute) Supratherapeutic INR (Resolved) Hypomagnesemia (Resolved) Hypophosphatemia (Resolved) Acute delirium (Acute) Rhinitis (Acute) Dehydration (Acute) Sepsis (Acute) Clostridium difficile enterocolitis (Resolved) 1. Sepsis secondary to gram-negative cystitis-preliminary urine culture growing GNR, low colony count. Previous urine cultures positive for ESBL klebsiella pneumoniae and Pseudomonas. Continue IV Zosyn pending final cultures. Unclear if acute infection versus colonization, will await final cultures. Repeat chest x-ray no other evidence of infection at this time. COVID negative. MRSA PCR negative. 2. Acute hypoxia hypoxic respiratory insufficiency secondary to acute PE-CTA demonstrates right upper lobe PE. Echocardiogram demonstrates an EF of 60%. Therapeutic Lovenox. Continue Coumadin with dose adjustment to obtain therapeutic INR. Discussed with patient recommendation of transitioning to Eliquis. Patient is to discuss with his . Continue supplement oxygen to maintain O2 at or above 90%. Ambulatory pulse ox prior to discharge. 3. History of severe C. difficile colitis in 2016 following antibiotic treatment for UTI. 4. Physical debility secondary to cerebral palsy- PT/OT. Patient is wheelchair- bound. Case management consult for discharge planning 5. Chronic lymphedema-Quique wrap bilateral lower extremities. Patient has lymphedema pumps at home. 6. Hypertension-stable, continue home lisinopril, atenolol regimen. 7. Hyperlipidemia-continue statin. 8. BPH-continue home Flomax regimen. 9. GERD-continue PPI. 10. Depression-continue home Celexa regimen. 11. History of DVT/PE-INR currently subtherapeutic. CTA positive for PE as noted above. Possible transition to Eliquis. 12. Morbid obesity-nutrition consult. Encourage diet modifications. 13. KAYLEIGH-continue CPAP. DVT prophylaxis-Coumadin. Awaiting patient decision on transition to Eliquis. This patient was seen by CARLOS Bucio under the supervision of Dr. Wynn.
[2019-11-19] MEDS: Nystatin Ointment 1 APPLIC TOPICAL (13:41)
--- NOTE | 2019-11-19 13:41 | CASEMGMT ---
NIKA MARR NOTE: Pt/ to decide about pt switching from Coumadin to Eliquis per Dr Wynn. NIKA MARR to room to talk with pt and he was on the phone with his when NIKA MARR entered room. NIKA MARR spoke w/ on the phone and with pt. /pt state they still have not made a final decision about this. Pt given Eliquis 30-day savings card and this was explained to /pt at this time, so if they do decide for pt to switch to Eliquis, they will have the card available. They were explained about use of the card and instructed to let pt's physician know if refills are not affordable. They voice understanding. Rafa HOGUE RN CM
[2019-11-19] MEDS: Tamsulosin HCl 0.4 MG Capsule PO (16:22)
[2019-11-19] MEDS: Citalopram 10 MG Tablet PO (22:20)
[2019-11-19] MEDS: Menthol/Lanolin/Calamine/Znox 113 GM Tube 1 APPLIC TOPICAL (22:20)
[2019-11-19] MEDS: Pravastatin 40 MG Tablet PO (22:21)
[2019-11-20] VITALS (11 sets, daily range): BP systolic 121–134; BP diastolic 63–68; PULSE 74–89; RESP 16–20; TEMP 36.3–36.8; O2SAT 91–97
[2019-11-20] MEDS: Ipratropium/Albuterol Sulfate 3 ML AMPUL.NEB INHALATION (00:16)
[2019-11-20] MEDS: Acetaminophen 325 MG Tablet 650 MG PO (01:55)
[2019-11-20] MEDS: Nystatin Ointment 1 APPLIC TOPICAL ×3 (03:50→21:53)
[2019-11-20] MEDS: Enoxaparin 150 MG/ML Syringe 130 MG SC ×2 (05:43→17:02)
[2019-11-20 06:09] LABS: Absolute Lymphocyte Count 1.93 X10^3/uL (0.83-4.51); Absolute Neutrophil Count 2.6 X10^3/uL (2.0-7.7); Basophil# 0.02 X10^3/uL; Basophil% 0.4 % (0-1); Eosinophil# 0.22 X10^3/uL; Hematocrit 42.7 % (40-54); Hemoglobin 14.1 g/dL (13.0-16.5); Lymphocyte # 1.93 X10^3/ul (4.0); Lymphocyte % 35.5 % (19-41); Mean Corpuscular Hgb 30.3 pg (27.0-32.0); Mean Corpuscular Volume 91.8 fL (80-94); Mean Platelet Vol. 11.6 fl (6.2-12.0); Monocyte# 0.61 X10^3/uL; Monocyte% 11.2 % (0-10); NRBC Flagged by Analyzer 0 % (0-5); Neutrophil # 2.62 X10^3/uL (2.7-7.7); Neutrophil % 48.2 % (47-70); Platelet Count 137 K/mm3 (150-450); RBC Distribution Width CV 15.4 % (11.6-14.6); Red Blood Count 4.65 M/mm3 (4.6-6.2); White Blood Count 5.4 K/mm3 (4.4-11.0)
[2019-11-20 06:21] LABS: International Normalized Ratio 1.8; Prothrombin Time (Protime)PT. 20.8 SECONDS (11.7-14.9)
[2019-11-20 06:31] LABS: ALB/GLOB Ratio 0.6 RATIO (0.9-2.4); AST(SGOT) 33 U/L (15-37); Alanine Aminotransfer ALT/SGPT 46 U/L (16-61); Albumin, Serum 2.6 g/dL (3.2-5.0); Alkaline Phosphatase 49 U/L (45-117); Anion Gap 2 (5-15); BUN 14 mg/dL (7-18); BUN/Creat Ratio 15.3 RATIO (10-20); Calcium,Total 8.4 mg/dL (8.5-10.1); Chloride 110 mmol/L (98-107); Creatinine, Serum 0.92 mg/dL (0.70-1.30); EST Glomerular Filtration Rate 90 mL/min (>60); Est Glom Filt Rate - Afr Amer 109 mL/min (>60); Estimated Creatinine Clearance 74.18 ml/min; Globulin 4.4 g/dL (2.2-4.2); Glucose 125 mg/dL (74-106); Potassium 3.5 mmol/L (3.5-5.1); Sodium Level 140 mmol/L (136-145)
[2019-11-20] MEDS: Baclofen 10 MG Tablet 40 MG PO ×2 (10:52→21:53)
[2019-11-20] MEDS: Pantoprazole Sodium 40 MG Tablet PO (10:52)
[2019-11-20] MEDS: Tamsulosin HCl 0.4 MG Capsule PO ×2 (10:53→16:53)
[2019-11-20] MEDS: Lisinopril 40 MG Tablet PO ×2 (10:53→21:53)
[2019-11-20] MEDS: Atenolol 25 MG Tablet PO ×2 (10:53→21:53)
[2019-11-20] MEDS: Menthol/Lanolin/Calamine/Znox 113 GM Tube 1 APPLIC TOPICAL ×2 (10:54→21:53)
--- NOTE | 2019-11-20 13:19 | PCM.PROGNOTE ---
Patient Problems: Active and Suspected Problems SIRS (systemic inflammatory response syndrome) (Acute) Subjective: Patient seen and examined. Shortness of breath continues to be improved. Patient requests this provider to contact his regarding transitioning to Eliquis and also plan for discharge. He is concerned his is not able to take him home today. Patient states he is agreeable to transition to Eliquis if his is also agreeable. Attempted to call with no answer and no return call. - Physical Exam Vitals/I&O's: Vital Signs Temp Pulse Resp BP Pulse Ox 97.4 F L 85 20 H 134/63 H 92 11/20/19 10:45 11/20/19 10:54 11/20/19 10:45 11/20/19 10:45 11/20/19 10:45 Oxygen Flow Rate (L/min) 2 Oxygen Delivery Method Room Air Weight: 294 lb 12.128 oz Body Mass Index (BMI) 50.5 Intake and Output for Last 24 Hours 11/18/19 11/19/19 11/20/19 23:59 23:59 23:59 Intake Total 4287.5 / 4287.5 1162.42 / 1362.42 499.58 / 499.58 Output Total 2059 / 2059 650 / 650 900 / 900 Balance 2228.5 / 2228.5 512.42 / 712.42 -400.42 / -400.42 General: Alert, Oriented x3, Cooperative HEENT: Atraumatic, PERRLA, EOMI, Normocephalic Neck: Supple, No JVD, Negative Carotid Bruits Lungs: Clear to auscultation, Diminished Cardiovascular: Regular rate, No murmurs Abdomen: Bowel Sounds Present, Soft, Non Tender, Non-Distended Extremities: No clubbing, No cyanosis, No edema, Capillary Refill Less than 3 Seconds, - - Chronic lymphedema bilateral lower extremities Skin: No rashes, No breakdown Musculoskeletal: No Tenderness to Palpation of Joints or Extremities Neurological: Cranial nerves II-XII grossly intact, Neuro grossly intact, - - 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 Psych/Mental Status: Normal Affect, Appropriate Microbiology Past 72 Hours 11/19/19 04:55 Sputum, Expectorated/Coughed Gram Stain - Final 11/19/19 04:55 Sputum, Expectorated/Coughed Respiratory Culture - Preliminary Presumptive C albicans 11/17/19 12:10 Urine Catheter - Catheter Urine Culture - Final Klebsiella oxytoca 11/18/19 11:40 Urine, Random Legionella Antigen - Final 11/18/19 11:40 Urine, Random Streptococcus pneumoniae Antigen (M - Final Laboratory Results 11/20/19 05:15: WBC 5.4, RBC 4.65, Hgb 14.1, Hct 42.7, MCV 91.8, MCH 30.3, MCHC 33.0, RDW Std Deviation 52.0 H, RDW Coeff of Jason 15.4 H, Plt Count 137 L, MPV 11.6, Immature Gran % (Auto) 0.700, Neut % (Auto) 48.2, Lymph % (Auto) 35.5, [place] % (Auto) 11.2 H, Eos % (Auto) 4.0, Baso % (Auto) 0.4, Absolute Neuts (auto) 2.6, Absolute Lymphs (auto) 1.93, Nucleated RBC % 0 11/20/19 05:15: PT 20.8 H, INR 1.8 11/20/19 05:15: Sodium 140, Potassium 3.5, Chloride 110 H, Carbon Dioxide 28.0, Anion Gap 2 L, BUN 14, Creatinine 0.92, Estim Creat Clear Calc 74.18, Est GFR (MDRD) Af Amer 109, Est GFR (MDRD) Non-Af 90, BUN/Creatinine Ratio 15.3, Glucose 125 H, Calcium 8.4 L, Total Bilirubin 0.90, AST 33, ALT 46, Alkaline Phosphatase 49, Total Protein 7.0, Albumin 2.6 L, Globulin 4.4 H, Albumin/Globulin Ratio 0.6 L Current Medications Acetaminophen (Tylenol) 650 mg PO Q6H PRN PRN PRN Reason: Pain Score 1-10/Temp > 100.7 F Last Admin: 11/20/19 01:55 Dose: 650 mg Documented by: Albuterol/Ipratropium (Duoneb) 3 ml INHALATION Q4H PRN PRN PRN Reason: SOB &/OR WHEEZING Last Admin: 11/20/19 00:16 Dose: 3 ml Documented by: Atenolol (Tenormin (Beta Rodrigo)) 25 mg PO BID [facility] Last Admin: 11/20/19 10:53 Dose: 25 mg Documented by: Baclofen (Lioresal) 40 mg PO BID [facility] Last Admin: 11/20/19 10:52 Dose: 40 mg Documented by: Calamine/Phenol (Calmoseptine Ointment) 1 applic TOPICAL BID [facility]; Protocol Last Admin: 11/20/19 10:54 Dose: 1 applicatio Documented by: Citalopram Hydrobromide (Celexa) 10 mg PO QHS [facility] Last Admin: 11/19/19 22:20 Dose: 10 mg Documented by: Enoxaparin Sodium (Lovenox) 130 mg SC Q12@0600,1800 [facility] Last Admin: 11/20/19 05:43 Dose: 130 mg Documented by: Ergocalciferol (Vitamin D) 50,[address] [facility] Piperacillin Sod/Tazobactam (Sod 3.375 gm/ Sodium Chloride) 50 mls @ 12.5 mls/hr IV Q8 [facility] Last Infusion: 11/20/19 11:50 Dose: Infused Documented by: Sodium Chloride () 250 mls @ 15 mls/hr IV .[id number] PRN PRN Reason: Saline Flush Sodium Chloride () 250 mls @ 15 mls/hr IV .[id number] PRN PRN Reason: Additional IVPB Infusion Lisinopril (Zestril) 40 mg PO BID [facility] Last Admin: 11/20/19 10:53 Dose: 40 mg Documented by: Nystatin (Mycostatin) 1 applic TOPICAL BID PRN PRN; Protocol PRN Reason: YEAST INFECTION Last Admin: 11/20/19 10:54 Dose: 1 applic Documented by: Ondansetron HCl (Zofran) 4 mg IV Q8H PRN PRN PRN Reason: NAUSEA/VOMITING Pantoprazole Sodium (Protonix) 40 mg PO DAILY [facility] Last Admin: 11/20/19 10:52 Dose: 40 mg Documented by: Pravastatin Sodium (Pravachol) 40 mg PO QHS [facility] Last Admin: 11/19/19 22:21 Dose: 40 mg Documented by: Sodium Chloride () 10 - 40 ml IV UD PRN PRN Reason: SALINE FLUSH Last Admin: 11/19/19 02:00 Dose: 10 ml Documented by: Tamsulosin HCl (Flomax) 0.4 mg PO 0800,1700 [facility] Tizanidine HCl (Zanaflex) 4 mg PO BID PRN PRN PRN Reason: MUSCLE SPASMS Warfarin Sodium (Jantoven) 6 mg PO DAILY@1700 [facility] Last Admin: 11/19/19 16:22 Dose: 6 mg Documented by: Medical Necessity - Tobacco Use Smoking Status: Former smoker Tobacco Use: Cigarettes, Chew Assessment/Plan All Active Problems Infectious encephalopathy (Acute) UTI (urinary tract infection) (Acute) SIRS (systemic inflammatory response syndrome) (Acute) UTI (urinary tract infection) (Acute) Bacteremia (Acute) Hypokalemia (Acute) Hyponatremia (Acute) Supratherapeutic INR (Resolved) Hypomagnesemia (Resolved) Hypophosphatemia (Resolved) Acute delirium (Acute) Rhinitis (Acute) Dehydration (Acute) Sepsis (Acute) Clostridium difficile enterocolitis (Resolved) 1. SIRS-UTI ruled out. Urine culture grew Klebsiella less than 1000 colony count. Will complete course of antibiotics empirically, switch to oral Levaquin. Chest x-ray and CTA without evidence of pneumonia. Sputum culture growing 2+ C albicans, 2+ gram-positive rods. Final culture pending. Suspect SIRS secondary to acute PE. COVID negative. MRSA PCR negative. 2. Acute hypoxic respiratory insufficiency secondary to acute PE-CTA demonstrates right upper lobe PE. Echocardiogram demonstrates an EF of 60%. Therapeutic Lovenox. Continue Coumadin with dose adjustment to obtain therapeutic INR. Discussed with patient recommendation of transitioning to Eliquis. Patient okay with transition however would like this provider to discuss with first, unable to contact . Will attempt again this afternoon. Continue supplement oxygen to maintain O2 at or above 90%. Ambulatory pulse ox prior to discharge. 3. History of severe C. difficile colitis in 2016 following antibiotic treatment for UTI. 4. Physical debility secondary to cerebral palsy- PT/OT. Patient is wheelchair-bound. Case management consult for discharge planning 5. Chronic lymphedema-Quique wrap bilateral lower extremities. Patient has lymphedema pumps at home. 6. Hypertension-stable, continue home lisinopril, atenolol regimen. 7. Hyperlipidemia-continue statin. 8. BPH-continue home Flomax regimen. 9. GERD-continue PPI. 10. Depression-continue home Celexa regimen. 11. History of DVT/PE-INR currently subtherapeutic. CTA positive for PE as noted above. Possible transition to Eliquis. 12. Morbid obesity-nutrition consult. Encourage diet modifications. 13. KAYLEIGH-continue CPAP. DVT prophylaxis-Coumadin. Awaiting patient decision on transition to [facility]. 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 Awaiting return call to make sure is amenable to patient returning home. Patient states he has been unable to reach today as well. This patient was seen by CARLOS Bucio under the supervision of Dr. Wynn.
[2019-11-20] MEDS: oxyCODONE 5 MG Tablet PO (16:52)
[2019-11-20] MEDS: Pravastatin 40 MG Tablet PO (21:53)
[2019-11-20] MEDS: Citalopram 10 MG Tablet PO (21:53)
[2019-11-21] VITALS (7 sets, daily range): BP systolic 131–135; BP diastolic 66–79; PULSE 74–84; RESP 18–24; TEMP 36.4–37; O2SAT 92–95
[2019-11-21] MEDS: Ipratropium/Albuterol Sulfate 3 ML AMPUL.NEB INHALATION (00:23)
[2019-11-21] MEDS: levoFLOXacin 750 MG Tablet PO (05:18)
[2019-11-21] MEDS: Enoxaparin 150 MG/ML Syringe 130 MG SC (05:19)
[2019-11-21 05:49] LABS: Absolute Neutrophil Count 2.9 X10^3/uL (2.0-7.7); Basophil# 0.03 X10^3/uL; Basophil% 0.5 % (0-1); Eosinophil# 0.31 X10^3/uL; Eosinophils% 5.2 % (0-5); Hematocrit 41.9 % (40-54); Hemoglobin 13.8 g/dL (13.0-16.5); Lymphocyte % 35.4 % (19-41); Mean Corp Hgb Conc 32.9 g/dL (32-36); Mean Corpuscular Hgb 30.3 pg (27.0-32.0); Mean Corpuscular Volume 91.9 fL (80-94); Monocyte# 0.52 X10^3/uL; Monocyte% 8.8 % (0-10); NRBC Flagged by Analyzer 0 % (0-5); Neutrophil # 2.91 X10^3/uL (2.7-7.7); Neutrophil % 49.1 % (47-70); Platelet Count 142 K/mm3 (150-450); RBC Distribution Width CV 15.3 % (11.6-14.6); RBC Distribution Width SD 51.4 fl (35.1-43.9); Red Blood Count 4.56 M/mm3 (4.6-6.2); White Blood Count 5.9 K/mm3 (4.4-11.0)
[2019-11-21 05:57] LABS: International Normalized Ratio 1.9; Prothrombin Time (Protime)PT. 21.5 SECONDS (11.7-14.9)
[2019-11-21 06:04] LABS: ALB/GLOB Ratio 0.7 RATIO (0.9-2.4); AST(SGOT) 40 U/L (15-37); Alanine Aminotransfer ALT/SGPT 53 U/L (16-61); Albumin, Serum 2.7 g/dL (3.2-5.0); Alkaline Phosphatase 51 U/L (45-117); Anion Gap 4 (5-15); BUN 15 mg/dL (7-18); BUN/Creat Ratio 21.7 RATIO (10-20); Calcium,Total 8.4 mg/dL (8.5-10.1); Chloride 108 mmol/L (98-107); Creatinine, Serum 0.69 mg/dL (0.70-1.30); EST Glomerular Filtration Rate 125 mL/min (>60); Est Glom Filt Rate - Afr Amer 152 mL/min (>60); Globulin 4.1 g/dL (2.2-4.2); Glucose 145 mg/dL (74-106); Potassium 3.4 mmol/L (3.5-5.1); Protein, Total 6.8 g/dL (6.4-8.2); Sodium Level 141 mmol/L (136-145)
[2019-11-21] MEDS: oxyCODONE 5 MG Tablet PO (06:13)
[2019-11-21] MEDS: Baclofen 10 MG Tablet 40 MG PO (08:35)
[2019-11-21] MEDS: Pantoprazole Sodium 40 MG Tablet PO (08:36)
[2019-11-21] MEDS: Menthol/Lanolin/Calamine/Znox 113 GM Tube 1 APPLIC TOPICAL (08:36)
[2019-11-21] MEDS: Tamsulosin HCl 0.4 MG Capsule PO (08:36)
[2019-11-21] MEDS: Atenolol 25 MG Tablet PO (08:36)
[2019-11-21] MEDS: Lisinopril 40 MG Tablet PO (08:36)
--- NOTE | 2019-11-21 11:30 | CASEMGMT ---
BREANA called [facility] and spoke with the coverage person letting her know that patient is being discharged today. BREANA also called his case specialist, Dena Gordon and let her know about d/c. BREANA also faxed d/c instructions to [facility]. Valeri WHEAT MSW
--- NOTE | 2019-11-21 11:35 | DCINST_ITS ---
- Discharge Diagnoses Current Active Problems: Current Active and Chronic Problems Acute pulmonary embolism You will use the following diet at home:: Cardiac Discharge Activity: Return to Normal Activity Call your doctor if you observe: Fever of 101 or Higher, Shortness of breath, Dizziness, Fainting spells, Chest pain Additional Instructions: You will need your INR checked daily until therapeutic, INR greater than 2. Allergies/Adverse Reactions: Allergies No Known Allergies Allergy (Verified 11/17/19 11:09) Medications to take at Discharge Atenolol [Tenormin (beta kartik)] 25 mg PO BID 08/12/14 Ergocalciferol [Vitamin D] 50,000 unit PO WE 08/12/14 Omeprazole [Prilosec] 40 mg PO DAILY 08/12/14 Pravastatin [Pravachol] 40 mg PO QHS 08/12/14 Nystatin [Mycostatin] 1 applic TOPICAL PRN PRN 09/14/15 Tizanidine HCl 4 mg PO BID PRN PRN 09/15/15 Tamsulosin HCl [Flomax] 0.4 mg PO DAILY@1730 01/11/17 Citalopram [Celexa] 10 mg PO QHS 08/18/17 Desoximetasone 0.25% [Topicort Crm 0.25%] 1 applic TOPICAL DAILY PRN PRN 08/18/17 Triamcinolone 0.5% Cream [Kenalog] 1 applicatio TOPICAL DAILY PRN PRN 08/18/17 Baclofen 40 mg PO BID 05/16/19 Lisinopril [Zestril] 40 mg PO BID 05/16/19 Warfarin Sodium 1 mg PO DAILY 11/17/19 Enoxaparin [Lovenox] 130 mg SUBCUT Q12@0600,1800 #14 syringe 11/21/19 Warfarin [Coumadin] 6 mg PO DAILY@1700 #14 tab 11/21/19 levoFLOXacin tablet [Levaquin tablet] 750 mg PO DAILY@0600 #3 tab 11/21/19 The following prescriptions were given: Warfarin [Coumadin] 6 mg PO DAILY@1700 #14 tab Transmission Status: Pending to [facility] levoFLOXacin tablet [Levaquin tablet] 750 mg PO DAILY@0600 #3 tab Transmission Status: Pending to [facility] Enoxaparin [Lovenox] 130 mg SUBCUT Q12@0600,1800 #14 syringe Transmission Status: Pending to [facility] Primary Care Physician: Maribell Haley DO [Primary Care Provider] - Please follow up with your Primary Care Physician in: 3-5 Days Test Results: Test results from this visit will be discussed in further detail at your follow- up appointment, if applicable. Proposed Discharge Date: 11/21/19
--- NOTE | 2019-11-21 11:43 | PCM.DC.SUM ---
<Bonnie Sanders [employer] - Last Filed: 11/21/19 11:51> Discharge Date and Diagnosis Date of Admission: 11/17/19 Date of Discharge: 11/21/19 - Primary Discharge Diagnosis Acute Problems: Active Problems 1. SIRS-UTI ruled out. Suspect SIRS secondary to acute PE. 2. Acute hypoxic respiratory insufficiency secondary to acute PE 3. History of severe C. difficile colitis in 2016 following antibiotic treatment for UTI. 4. Physical debility secondary to cerebral palsy 5. Chronic lymphedema 6. Hypertension 7. Hyperlipidemia 8. BPH 9. GERD 10. Depression 11. History of DVT/PE 12. Morbid obesity 13. KAYLEIGH - Secondary Discharge Diagnosis Chronic Problems: Chronic Problems KAYLEIGH (obstructive sleep apnea) (Chronic) Sleep-disordered breathing (Chronic) UTI (urinary tract infection) (Chronic) Cerebral palsy (Chronic) HTN (hypertension) (Chronic) Recurrent deep venous thrombosis (Chronic) Hyperlipidemia (Chronic) Pulmonary embolism (Chronic) Status post laparoscopic cholecystectomy (Chronic) Hospital Course and Treatment Imaging Results: Diagnostic Data Chest X-Ray 11/18/19 07:11 IMPRESSION: Stable mild increased markings at the lung bases. The vascular congestion has improved. Electronically Signed: Gt Barajas, at 11:18 EDT , Service support , Chest CTA 11/18/19 12:45 IMPRESSION: Filling defects in branches of the right upper lobe pulmonary artery in keeping with the localized pulmonary embolism. Stable increased markings in the lung bases suggestive of scarring. Electronically Signed: Gt Barajas at 15:36 EDT , Service support , Operations: None Procedures: 2-D Echocardiogram Summary of Care Provided: The patient is a 59 year old M admitted 11/17/2019 due to fever, shortness of breath and dysuria. 1. SIRS-UTI ruled out. Urine culture grew Klebsiella less than 1000 colony count. Will complete course of antibiotics empirically, switch to oral Levaquin. Chest x-ray and CTA without evidence of pneumonia. Sputum culture growing 2+ C albicans, 2+ gram-positive rods. Final culture pending. Suspect SIRS secondary to acute PE. COVID negative. MRSA PCR negative. 2. Acute hypoxic respiratory insufficiency secondary to acute PE-CTA demonstrates right upper lobe PE. Echocardiogram demonstrates an EF of 60%. Continue Coumadin with dose adjustment to obtain therapeutic INR. Despite extra Coumadin dosing, INR 1.9 at discharge. Continue with therapeutic Lovenox with daily INR. May discontinue Lovenox when INR is greater than 2 with goal INR 2-3. Discussed extensively with patient and recommendation of switching to Eliquis or Xarelto due to recurrent PE and subtherapeutic INR. Patient agreeable however concerned as she states she took Eliquis a few years ago and had side effects. Discussed risks of continuing Coumadin and need for aggressive following of INR. Patient and notes understanding. Follow closely with PCP. Recommend further discussion regarding transitioning to Eliquis. Patient's oxygen now stable on room air. 3. History of severe C. difficile colitis in 2016 following antibiotic treatment for UTI. 4. Physical debility secondary to cerebral palsy- PT/OT. Patient is wheelchair-bound. Patient has home health and aide services. No further needs at this time. 5. Chronic lymphedema-Quique wrap bilateral lower extremities. Patient has lymphedema pumps at home. 6. Hypertension-stable, continue home lisinopril, atenolol regimen. 7. Hyperlipidemia-continue statin. 8. BPH-continue home Flomax regimen. 9. GERD-continue PPI. 10. Depression-continue home Celexa regimen. 11. History of DVT/PE- CTA positive for PE as noted above. Patient wishes to remain on Coumadin with Lovenox bridge until INR therapeutic as noted above. 12. Morbid obesity-nutrition consult. Encourage diet modifications. 13. KAYLEIGH-continue CPAP. General: Alert, Oriented x3, Cooperative HEENT: Atraumatic, PERRLA, EOMI, Normocephalic Neck: Supple, No JVD, Negative Carotid Bruits Lungs: Clear to auscultation, Diminished Cardiovascular: Regular rate, No murmurs Abdomen: Bowel Sounds Present, Soft, Non Tender, Non-Distended Extremities: No clubbing, No cyanosis, No edema, Capillary Refill Less than 3 Seconds, - - Chronic lymphedema bilateral lower extremities Skin: No rashes, No breakdown Musculoskeletal: No Tenderness to Palpation of Joints or Extremities Neurological: Cranial nerves II-XII grossly intact, Neuro grossly intact, - - 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 Psych/Mental Status: Normal Affect, Appropriate Patient seen and examined prior to discharge. Physical assessment as noted above. Patient is stable for discharge with follow up recommendations as noted above. This patient was seen by CARLOS Bucio under the supervision of Dr. Pereira. - Physical Exam Vitals/I&O's: Vital Signs Temp Pulse Resp BP Pulse Ox 98.6 F 77 20 H 131/67 H 92 11/21/19 09:45 11/21/19 09:45 11/21/19 09:45 11/21/19 09:45 11/21/19 09:45 Oxygen Flow Rate (L/min) 2 Oxygen Delivery Method Room Air Weight: 294 lb 12.128 oz Body Mass Index (BMI) 50.5 Intake and Output for Last 24 Hours 11/19/19 11/20/19 11/21/19 23:59 23:59 23:59 Intake Total 1162.42 / 1362.42 1622.33 / 1922.33 522 / 522 Output Total 650 / 650 1400 / 1750 350 / 350 Balance 512.42 / 712.42 222.33 / 172.33 172 / 172 Microbiology Past 72 Hours 11/19/19 04:55 Sputum, Expectorated/Coughed Gram Stain - Final 11/19/19 04:55 Sputum, Expectorated/Coughed Respiratory Culture - Preliminary Presumptive C albicans 11/17/19 12:10 Urine Catheter - Catheter Urine Culture - Final Klebsiella oxytoca 11/18/19 11:40 Urine, Random Legionella Antigen - Final 11/18/19 11:40 Urine, Random Streptococcus pneumoniae Antigen (M - Final Laboratory Results 11/21/19 05:20: WBC 5.9, RBC 4.56 L, Hgb 13.8, Hct 41.9, MCV 91.9, MCH 30.3, MCHC 32.9, RDW Std Deviation 51.4 H, RDW Coeff of Jason 15.3 H, Plt Count 142 L, MPV 11.0, Immature Gran % (Auto) 1.000 H, Neut % (Auto) 49.1, Lymph % (Auto) 35.4, Cochran % (Auto) 8.8, Eos % (Auto) 5.2 H, Baso % (Auto) 0.5, Absolute Neuts (auto) 2.9, Absolute Lymphs (auto) 2.10, Nucleated RBC % 0 11/21/19 05:20: PT 21.5 H, INR 1.9 11/21/19 05:20: Sodium 141, Potassium 3.4 L, Chloride 108 H, Carbon Dioxide 29.0, Anion Gap 4 L, BUN 15, Creatinine 0.69 L, Estim Creat Clear Calc 98.90, Est GFR (MDRD) Af Amer 152, Est GFR (MDRD) Non-Af 125, BUN/Creatinine Ratio 21.7 H, Glucose 145 H, Calcium 8.4 L, Total Bilirubin 0.70, AST 40 H, ALT 53, Alkaline Phosphatase 51, Total Protein 6.8, Albumin 2.7 L, Globulin 4.1, Albumin/Globulin Ratio 0.7 L Current Medications Acetaminophen (Tylenol) 650 mg PO Q6H PRN PRN PRN Reason: Pain Score 1-10/Temp > 100.7 F Last Admin: 11/20/19 01:55 Dose: 650 mg Documented by: Albuterol/Ipratropium (Duoneb) 3 ml INHALATION Q4H PRN PRN PRN Reason: SOB &/OR WHEEZING Last Admin: 11/21/19 00:23 Dose: 3 ml Documented by: Atenolol (Tenormin (Beta Rodrigo)) 25 mg PO BID [facility] Last Admin: 11/21/19 08:36 Dose: 25 mg Documented by: Baclofen (Lioresal) 40 mg PO BID [facility] Last Admin: 11/21/19 08:35 Dose: 40 mg Documented by: Calamine/Phenol (Calmoseptine Ointment) 1 applic TOPICAL BID [facility]; Protocol Last Admin: 11/21/19 08:36 Dose: 1 applicatio Documented by: Citalopram Hydrobromide (Celexa) 10 mg PO QHS [facility] Last Admin: 11/20/19 21:53 Dose: 10 mg Documented by: Enoxaparin Sodium (Lovenox) 130 mg SC Q12@0600,1800 [facility] Last Admin: 11/21/19 05:19 Dose: 130 mg Documented by: Ergocalciferol (Vitamin D) 50,000 unit PO [facility] Sodium Chloride () 250 mls @ 15 mls/hr IV .[id number] PRN PRN Reason: Saline Flush Last Infusion: 11/20/19 18:25 Dose: 0 mls/hr Documented by: Sodium Chloride () 250 mls @ 15 mls/hr IV .[id number] PRN PRN Reason: Additional IVPB Infusion Levofloxacin (Levaquin Tablet) 750 mg PO DAILY@0600 [facility] Stop: 11/24/19 06:01 Last Admin: 11/21/19 05:18 Dose: 750 mg Documented by: Lisinopril (Zestril) 40 mg PO BID [facility] Last Admin: 11/21/19 08:36 Dose: 40 mg Documented by: Nystatin (Mycostatin) 1 applic TOPICAL BID PRN PRN; Protocol PRN Reason: YEAST INFECTION Last Admin: 11/20/19 21:53 Dose: 1 applic Documented by: Ondansetron HCl (Zofran) 4 mg IV Q8H PRN PRN PRN Reason: NAUSEA/VOMITING Oxycodone HCl (Oxyir) 5 mg PO Q6H PRN PRN PRN Reason: Pain Score 6-10/10 Last Admin: 11/21/19 06:13 Dose: 5 mg Documented by: Pantoprazole Sodium (Protonix) 40 mg PO DAILY [facility] Last Admin: 11/21/19 08:36 Dose: 40 mg Documented by: Potassium Chloride (K-Dur) 40 meq PO X1 ONE Stop: 11/21/19 11:32 Pravastatin Sodium (Pravachol) 40 mg PO QHS [facility] Last Admin: 11/20/19 21:53 Dose: 40 mg Documented by: Sodium Chloride () 10 - 40 ml IV UD PRN PRN Reason: SALINE FLUSH Last Admin: 11/19/19 02:00 Dose: 10 ml Documented by: Tamsulosin HCl (Flomax) 0.4 mg PO 0800,1700 [facility] Last Admin: 11/21/19 08:36 Dose: 0.4 mg Documented by: Tizanidine HCl (Zanaflex) 4 mg PO BID PRN PRN PRN Reason: MUSCLE SPASMS Warfarin Sodium (Jantoven) 6 mg PO DAILY@1700 [facility] Last Admin: 11/20/19 16:53 Dose: 6 mg Documented by: Discharge Diet: Low fat/ Low Cholesterol Discharge Activity: Return to Normal Activity Call your doctor if you observe: Fever of 101 or Higher, Shortness of breath, Dizziness, Fainting spells, Chest pain Home Medications: Medications to take at Discharge Atenolol [Tenormin (beta rodrigo)] 25 mg PO BID 08/12/14 Ergocalciferol [Vitamin D] 50,000 unit PO WE 08/12/14 Omeprazole [Prilosec] 40 mg PO DAILY 08/12/14 Pravastatin [Pravachol] 40 mg PO QHS 08/12/14 Nystatin [Mycostatin] 1 applic TOPICAL PRN PRN 09/14/15 Tizanidine HCl 4 mg PO BID PRN PRN 09/15/15 Tamsulosin HCl [Flomax] 0.4 mg PO DAILY@1730 01/11/17 Citalopram [Celexa] 10 mg PO QHS 08/18/17 Desoximetasone 0.25% [Topicort Crm 0.25%] 1 applic TOPICAL DAILY PRN PRN 08/18/17 Triamcinolone 0.5% Cream [Kenalog] 1 applicatio TOPICAL DAILY PRN PRN 08/18/17 Baclofen 40 mg PO BID 05/16/19 Lisinopril [Zestril] 40 mg PO BID 05/16/19 Warfarin Sodium 1 mg PO DAILY 11/17/19 Enoxaparin [Lovenox] 130 mg SUBCUT Q12@0600,1800 #14 syringe 11/21/19 Warfarin [Coumadin] 6 mg PO DAILY@1700 #14 tab 11/21/19 levoFLOXacin tablet [Levaquin tablet] 750 mg PO DAILY@0600 #3 tab 11/21/19 Following Prescriptions Were Given to Patient: Warfarin [Coumadin] 6 mg PO DAILY@1700 #14 tab Transmission Status: Received by [facility] levoFLOXacin tablet [Levaquin tablet] 750 mg PO DAILY@0600 #3 tab Transmission Status: Received by [facility] Enoxaparin [Lovenox] 130 mg SUBCUT Q12@0600,1800 #14 syringe Transmission Status: Received by [facility] Primary Care Physician: Maribell Haley DO [Primary Care Provider] - Please follow up with your Primary Care Physician in: 3-5 Days Disposition: Home with Home Health Minutes spent on discharge:: 35 Patient Condition:: Stable Medical Necessity - Tobacco Use Smoking Status: Former smoker Tobacco Use: Cigarettes, Chew Meaningful Use Info Meaningful Use Diagnoses (Choose all that apply): VTE - VTE Anticoag overlap given w/in hospital stay or rx'd at dc?: Yes Pt receive overlap for 5 days?: Yes <Shima Pereira - Last Filed: 11/21/19 14:00> Discharge Date and Diagnosis - Secondary Discharge Diagnosis Chronic Problems: Chronic Problems KAYLEIGH (obstructive sleep apnea) (Chronic) Sleep-disordered breathing (Chronic) UTI (urinary tract infection) (Chronic) Cerebral palsy (Chronic) HTN (hypertension) (Chronic) Recurrent deep venous thrombosis (Chronic) Hyperlipidemia (Chronic) Pulmonary embolism (Chronic) Status post laparoscopic cholecystectomy (Chronic) Hospital Course and Treatment Summary of Care Provided: I agree with the above and the following is a reflection of my independent history and physical exam. Hypokalemia -pt was given 40 mEq of K prior to d/c -will need f/u lab per PCP office in about 1 week DVT/PE -as noted above we did discuss the transition to NOAC with the pt and he and his are reluctant at this time -pt to d/w with PCP--> since had new clot and INR was subtherapeutic conversion to a NOAC may reduce risk of recurrent clots -d/c on Lovenox and Coumadin (INR 1.9 on day of discharge) -would recommend 2 consecutive therapeutic INR prior to the d/c of lovenox D/C time for coordination and pt education > 31' - Physical Exam Vitals/I&O's: Vital Signs Temp Pulse Resp BP Pulse Ox 98.6 F 77 20 H 131/67 H 92 11/21/19 09:45 11/21/19 09:45 11/21/19 09:45 11/21/19 09:45 11/21/19 09:45 Oxygen Flow Rate (L/min) 2 Oxygen Delivery Method Room Air Weight: 133.7 kg Body Mass Index (BMI) 50.5 Intake and Output for Last 24 Hours 11/19/19 11/20/19 11/21/19 23:59 23:59 23:59 Intake Total 1162.42 / 1362.42 1622.33 / 1922.33 1002 / 1002 Output Total 650 / 650 1400 / 1750 350 / 350 Balance 512.42 / 712.42 222.33 / 172.33 652 / 652 General: Alert, Oriented x3, Cooperative, No apparent distress, Well developed, Well nourished, - - Obese paraplegic WM, sitting up in bed using urinal, tells me to come in HEENT: Atraumatic, PERRLA, EOMI, Normocephalic, EAC Clear Oral: Moist Mucosa, No Gingival or Mucosal Lesions/ Ulcerations Neck: Supple, No JVD, Trachea Midline, Thyroid Normal Size and Texture, - - short thick neck Lungs: Clear to auscultation, No rhonchi, No wheeze, No rales, Diminished - diffusely 2/2 body habitus Cardiovascular: Regular rate, Regular Rhythm, Normal S1, Normal S2, No murmurs, No Ectopic Activity, No rub noted, No Gallop Abdomen: Bowel Sounds Present, Soft, Non Tender, Non-Distended, No Hepato-splenomegaly, Obese, No hernias noted Extremities: No clubbing, No cyanosis, Capillary Refill Less than 3 Seconds, Edema Skin: No rashes, No breakdown Musculoskeletal: No Tenderness to Palpation of Joints or Extremities, Muscle Wasting - B LE Lymphatic: No Cervical, Supraclavicular, or Inguinal Adenopathy Neurological: Cranial nerves II-XII grossly intact, - - B LE paraplegia without spasticity. no sensation Psych/Mental Status: Normal Affect, Appropriate, Alert and oriented to time, place, person, mood and affect Microbiology Past 72 Hours 11/19/19 04:55 Sputum, Expectorated/Coughed Gram Stain - Final 11/19/19 04:55 Sputum, Expectorated/Coughed Respiratory Culture - Preliminary Presumptive C albicans 11/17/19 12:10 Urine Catheter - Catheter Urine Culture - Final Klebsiella oxytoca 11/18/19 11:40 Urine, Random Legionella Antigen - Final 11/18/19 11:40 Urine, Random Streptococcus pneumoniae Antigen (M - Final Laboratory Results 11/21/19 05:20: WBC 5.9, RBC 4.56 L, Hgb 13.8, Hct 41.9, MCV 91.9, MCH 30.3, MCHC 32.9, RDW Std Deviation 51.4 H, RDW Coeff of Jason 15.3 H, Plt Count 142 L, MPV 11.0, Immature Gran % (Auto) 1.000 H, Neut % (Auto) 49.1, Lymph % (Auto) 35.4, Cochran % (Auto) 8.8, Eos % (Auto) 5.2 H, Baso % (Auto) 0.5, Absolute Neuts (auto) 2.9, Absolute Lymphs (auto) 2.10, Nucleated RBC % 0 11/21/19 05:20: PT 21.5 H, INR 1.9 11/21/19 05:20: Sodium 141, Potassium 3.4 L, Chloride 108 H, Carbon Dioxide 29.0, Anion Gap 4 L, BUN 15, Creatinine 0.69 L, Estim Creat Clear Calc 98.90, Est GFR (MDRD) Af Amer 152, Est GFR (MDRD) Non-Af 125, BUN/Creatinine Ratio 21.7 H, Glucose 145 H, Calcium 8.4 L, Total Bilirubin 0.70, AST 40 H, ALT 53, Alkaline Phosphatase 51, Total Protein 6.8, Albumin 2.7 L, Globulin 4.1, Albumin/Globulin Ratio 0.7 L Current Medications Acetaminophen (Tylenol) 650 mg PO Q6H PRN PRN PRN Reason: Pain Score 1-10/Temp > 100.7 F Last Admin: 11/20/19 01:55 Dose: 650 mg Documented by: Albuterol/Ipratropium (Duoneb) 3 ml INHALATION Q4H PRN PRN PRN Reason: SOB &/OR WHEEZING Last Admin: 11/21/19 00:23 Dose: 3 ml Documented by: Atenolol (Tenormin (Beta Rodrigo)) 25 mg PO BID [facility] Last Admin: 11/21/19 08:36 Dose: 25 mg Documented by: Baclofen (Lioresal) 40 mg PO BID [facility] Last Admin: 11/21/19 08:35 Dose: 40 mg Documented by: Calamine/Phenol (Calmoseptine Ointment) 1 applic TOPICAL BID [facility]; Protocol Last Admin: 11/21/19 08:36 Dose: 1 applicatio Documented by: Citalopram Hydrobromide (Celexa) 10 mg PO QHS [facility] Last Admin: 11/20/19 21:53 Dose: 10 mg Documented by: Enoxaparin Sodium (Lovenox) 130 mg SC Q12@0600,1800 [facility] Last Admin: 11/21/19 05:19 Dose: 130 mg Documented by: Ergocalciferol (Vitamin D) 50,000 unit PO [facility] Sodium Chloride () 250 mls @ 15 mls/hr IV .[id number] PRN PRN Reason: Saline Flush Last Infusion: 11/21/19 11:52 Dose: Infused Documented by: Sodium Chloride () 250 mls @ 15 mls/hr IV .[id number] PRN PRN Reason: Additional IVPB Infusion Levofloxacin (Levaquin Tablet) 750 mg PO DAILY@0600 [facility] Stop: 11/24/19 06:01 Last Admin: 11/21/19 05:18 Dose: 750 mg Documented by: Lisinopril (Zestril) 40 mg PO BID [facility] Last Admin: 11/21/19 08:36 Dose: 40 mg Documented by: Nystatin (Mycostatin) 1 applic TOPICAL BID PRN PRN; Protocol PRN Reason: YEAST INFECTION Last Admin: 11/20/19 21:53 Dose: 1 applic Documented by: Ondansetron HCl (Zofran) 4 mg IV Q8H PRN PRN PRN Reason: NAUSEA/VOMITING Oxycodone HCl (Oxyir) 5 mg PO Q6H PRN PRN PRN Reason: Pain Score 6-10/10 Last Admin: 11/21/19 06:13 Dose: 5 mg Documented by: Pantoprazole Sodium (Protonix) 40 mg PO DAILY [facility] Last Admin: 11/21/19 08:36 Dose: 40 mg Documented by: Pravastatin Sodium (Pravachol) 40 mg PO QHS [facility] Last Admin: 11/20/19 21:53 Dose: 40 mg Documented by: Sodium Chloride () 10 - 40 ml IV UD PRN PRN Reason: SALINE FLUSH Last Admin: 11/19/19 02:00 Dose: 10 ml Documented by: Tamsulosin HCl (Flomax) 0.4 mg PO 0800,1700 [facility] Last Admin: 11/21/19 08:36 Dose: 0.4 mg Documented by: Tizanidine HCl (Zanaflex) 4 mg PO BID PRN PRN PRN Reason: MUSCLE SPASMS Warfarin Sodium (Jantoven) 6 mg PO DAILY@1700 [facility] Last Admin: 11/20/19 16:53 Dose: 6 mg Documented by: Meaningful Use Info Meaningful Use Diagnoses (Choose all that apply): VTE - VTE Anticoag overlap given w/in hospital stay or rx'd at dc?: Yes Pt receive overlap for 5 days?: Yes Inpatient E&M: 99195 Disch Hosp
--- NOTE | 2019-11-21 12:43 | CASEMGMT ---
H&P, SHERIE, and D/C summ/instructions faxed to [facility] at this time. Call to [facility] to notify of fax and pt discharge at this time, voice understanding and states they will get nurse out to do SHERIE kelly. [facility]HC voices no further questions/concerns at this time. Pt is 92-93% on room air at rest and pt has a hx of cerebral palsy and is non-ambulatory so unable/unnecessary to complete ambulatory pulse ox at this time. SStjosiah RN CM
== END 2019-11-21 15:17 | disposition home or self-care (01) | DRG 176 ==
LOC: ED 16:26 → PCU 16:48
PROVIDERS: Family Medicine; Nurse Practitioner Family; Admitting Provider Student in an Organized Health Care Education/Training Program; Emergency Provider Emergency Medicine; PCP Internal Medicine; Visit Provider Internal Medicine
DX: I26.99 Other pulmonary embolism without acute cor pulmonale (principal); R65.10 Systemic inflammatory response syndrome (SIRS) of non-infectious origin without acute organ dysfunction; Z68.43 Body mass index [BMI] 50.0-59.9, adult; R06.89 Other abnormalities of breathing; R09.02 Hypoxemia; G80.9 Cerebral palsy, unspecified; I89.0 Lymphedema, not elsewhere classified; I10 Essential (primary) hypertension; E78.5 Hyperlipidemia, unspecified; N40.0 Benign prostatic hyperplasia without lower urinary tract symptoms; K21.9 Gastro-esophageal reflux disease without esophagitis; F32.9 Major depressive disorder, single episode, unspecified; R79.1 Abnormal coagulation profile; G47.33 Obstructive sleep apnea (adult) (pediatric); E87.6 Hypokalemia; E66.01 Morbid (severe) obesity due to excess calories; Z71.3 Dietary counseling and surveillance; Z99.3 Dependence on wheelchair; Z86.19 Personal history of other infectious and parasitic diseases; Z87.440 Personal history of urinary (tract) infections; Z86.718 Personal history of other venous thrombosis and embolism; Z86.711 Personal history of pulmonary embolism; Z79.01 Long term (current) use of anticoagulants; Z79.899 Other long term (current) drug therapy; Z87.891 Personal history of nicotine dependence
CPT/HCPCS: 36415; 71045; 71275; 80053; 81001; 83605; 83735; 83880; 84145; 84484; 85025; 85610; 85730; 87040; 87070; 87077; 87086; 87088; 87186; 87205; 87449; 87635; 87641; 93005; 93306; 94640; 94762; 97162; 97166; 97530; 97535; 97802; 99285; J7030; J7050; Q9957; Q9967; A4216; C8929; J1940; U0003

== ENCOUNTER 2021-03-16 20:39 | Emergency (ER) | payer MEDICARE, MEDICAID, SELFPAY ==
[2021-03-16 20:40] VITALS: BP 200/103; PULSE 85; RESP 20; TEMP 36.3; O2SAT 91; BMI 55.8
[2021-03-16 20:44] VITALS: O2SAT 93
[2021-03-16 20:48] VITALS: BP 209/110
[2021-03-16 21:03] VITALS: BP 211/98
--- NOTE | 2021-03-16 21:09 | EDS_ITS ---
HPI History of Present Illness Chief Complaint: Dental Detail of Chief Complaint: Left lower molar dental pain. Informant: patient and family Onset/Context/Timing Onset: Days Context: Gradual Onset Current Severity: Mild Maximum Severity: Mild Associated Symptoms Assocated Symptom - Dental: Negative for fever, jaw swelling, face swelling, cold sensitivity, hot sensitivity or other Narrative Narrative: 41-year-old male with a left lower jaw dental pain since . He went to [place] to [facility] clinic and they referred him to a dentist. They said they were unable to do anything for this. He has a an appointment to see an oral surgeon on Thursday. Complaining of pain. Prior similar symptoms: No Recent Illness/Hospitalization: No [facility] Medical History Cerebral palsy Home Medications Omeprazole [Prilosec] 40 mg PO DAILY 08/12/14 [History Last Taken 11/17/19] atenolol 25 mg PO BID 08/12/14 [History Last Taken 11/17/19] ergocalciferol (vitamin D2) [Vitamin D2] 50,000 unit PO WE 08/12/14 [History Last Taken 11/16/19] pravastatin 40 mg PO QHS 08/12/14 [History Last Taken 11/16/19] nystatin 1 applic TOPICAL PRN PRN 09/14/15 [History Last Taken 01/09/17 22:00 1] tizanidine 4 mg PO BID PRN PRN 09/15/15 [History Last Taken 05/16/19] tamsulosin 0.4 mg PO DAILY@1730 01/11/17 [History Last Taken 11/16/19] citalopram 10 mg PO QHS 08/18/17 [History Last Taken 11/16/19] desoximetasone 1 applic TOPICAL DAILY PRN PRN 08/18/17 [History Last Taken 11/15/19] triamcinolone acetonide 1 applicatio TOPICAL DAILY PRN PRN 08/18/17 [History Last Taken Unknown] baclofen 40 mg PO BID 05/16/19 [History Last Taken 11/17/19] lisinopril 40 mg PO BID 05/16/19 [History Last Taken 11/17/19] warfarin 1 mg PO DAILY 11/17/19 [History Last Taken 11/16/19] enoxaparin 130 mg SUBCUT Q12@0600,1800 #14 syringe 11/21/19 [Rx Last Taken Unknown] levofloxacin 750 mg PO DAILY@0600 #3 tab 11/21/19 [Rx Last Taken Unknown] warfarin 6 mg PO DAILY@1700 #14 tab 11/21/19 [Rx Last Taken Unknown] penicillin V potassium 500 mg PO 4X/DAY #40 tab 03/16/21 [Rx Last Taken Unknown] Allergy/AdvReac Type Severity Reaction Status Date / Time No Known Allergies Allergy Verified 03/16/21 20:43 Social History Smoking Status: Former smoker ROS ROS ED ROS Narrative Denies recent illness. Review of Systems ROS Unobtainable: Denies due to encephalopathy Constitutional Constitutional ED: Denies fever(s) Eyes Eyes: Denies change in vision ENT ENT ED: Denies ear pain Cardiovascular Cardiovascular: Denies chest pain Respiratory/Chest Respiratory/Chest: Denies dyspnea Gastrointestinal Gastrointestinal: Denies abdominal pain Genitourinary Genitourinary ED: Denies dysuria Musculoskeletal Musculoskeletal: Denies myalgias Integumentary Denies rash Neurologic Neurologic: Denies headache(s) Psychiatric Psychiatric: Denies depression Endocrine Endocrinology: Denies polyuria Hematologic/Lymphatic Hematologic/Lymphatic: Denies easy bruising Allergic/Immunologic Allergic/Immunologic ED: Denies urticaria EXAM Physical Exam Narrative Exam Narrative: 90 mild acute distress vital signs stable afebrile. H EENT exam posterior pharynx normal. No trouble breathing or swallowing. No Frank's angina. Both lower molars in the back of his lower jaw have loss of the enamel and anterior front side. There is no A lot of gingival swelling. There is no obvious abscess. There is jaws not tender there is no neck tenderness or lymphadenopathy. Underneath his tongue is soft and nontender and nonswollen. Lungs are clear. Heart regular rhythm. Abdomen is obese but soft. Otherwise exam unremarkable. Const Vital Signs: 03/16/21 20:40 03/16/21 20:44 03/16/21 20:48 Temperature 97.4 F L Temperature Source Temporal Pulse Rate 85 Respiratory Rate 20 H Blood Pressure 200/103 H 209/110 H Blood Pressure Mean 135 143 Pulse Ox 91 93 Oxygen Delivery Method Room Air Room Air Oxygen Flow Rate (L/min) 2 03/16/21 21:03 Temperature Temperature Source Pulse Rate Respiratory Rate Blood Pressure 211/98 H Blood Pressure Mean 135 Pulse Ox Oxygen Delivery Method Oxygen Flow Rate (L/min) Positive well nourished, well developed and obese; Negative for cachectic, contractures or unkempt General Appearance ED: well developed and NAD; Negative for unkempt, cachectic or contractures Nutritional Appearance: obese; Negative for cachectic HEENT HEENT Narrative: Bilateral lower molars have loss of the enamel on the anterior front side surface. Currently cavities. There is not significant gingival swelling and there is no abscess. There is no jaw swelling. No trismus. Negative for trauma Teeth and Gingiva: caries Eyes PERRL and EOMs intact bilaterally Neck no lymphadenopathy, supple and no JVD General: normal visual inspection; Negative for anterior neck swelling or tenderness Lymph Lymphatic: no lymphadenopathy noted; Negative for lymphadenopathy Chest Wall inspection of chest normal and palpation of chest normal Resp normal respiratory effort and clear to auscultation bilaterally Cardio regular rate, regular rhythm, S1 normal heart sound, S2 normal heart sound and no murmurs GI normal to inspection, nondistended, normoactive bowel sounds, non-tender, non- distended and no masses Palpation: soft Extremity normal to inspection General Extremety ED: Negative for edema General Extremity: Negative for edema Neuro oriented x3, moves all extremities and no focal motor deficits Sensorium / Orientation: alert, oriented to person, oriented to place and oriented to time; Negative for orientation impaired Psych mental status grossly normal Appearance: Negative for unkempt Attitude: No agitated Mood & Affect: Negative for depressed or tearful Skin no rashes or lesions noted and no wounds MDM MDM MDM Narrative Medical decision making narrative: 41-year-old male with dental pain and cavity left lower molar. No abscess. No trismus. No Frank's angina. Has appointment to see a dentist or an oral surgeon on Thursday. Be placed on penicillin till then. Given a dose here. Discharge Plan Triage Chief Complaint: Dental ED Provider: Babak Le Dx/Rx/DC Orders Clinical Impression: Pain, dental Instructions: ED Dental Pain, ED Dental Cavity Prescriptions: New penicillin V potassium 500 mg tablet 500 mg PO 4X/DAY Qty: 40 RF: 0 No Action pravastatin 40 MG tablet 40 mg PO QHS RF: 0 atenolol 25 MG tablet 25 mg PO BID RF: 0 Omeprazole [Prilosec] 40 MG capsule 40 mg PO DAILY RF: 0 ergocalciferol (vitamin D2) [Vitamin D2] 50,000 UNIT capsule 50,000 unit PO WE RF: 0 nystatin 1 APPLIC ointment 1 applic topical PRN PRN (Reason: YEAST INFECTION) RF: 0 tizanidine 4 MG tablet 4 mg PO BID PRN PRN (Reason: Muscle Spasm) RF: 0 tamsulosin 0.4 MG capsule 0.4 mg PO DAILY@1730 RF: 0 desoximetasone 1 APPLIC cream 1 applic topical DAILY PRN PRN (Reason: yeast infections) RF: 0 triamcinolone acetonide 0.5 cream 1 applicatio topical DAILY PRN PRN (Reason: yeast infections) RF: 0 citalopram 10 tablet 10 mg PO QHS RF: 0 baclofen 20 MG tablet 40 mg PO BID RF: 0 lisinopril 40 MG tablet 40 mg PO BID RF: 0 warfarin 1 MG tablet 1 mg PO DAILY RF: 0 warfarin 6 MG tablet 6 mg PO DAILY@1700 Qty: 14 RF: 0 enoxaparin 150 MG/ML syringe 130 mg subcut Q12@0600,1800 Qty: 14 RF: 0 levofloxacin 750 MG tablet 750 mg PO DAILY@0600 Qty: 3 RF: 0 Primary Care Provider: Maribell Haley Referrals: Maribell Haley, [Primary Care Provider] - As Needed Activity Restrictions/Additional Instructions: Follow-up with your dentist or oral surgeon on Thursday. Penicillin 4 times a day till seen by your dentist. Ask them if they want you to continue it. Tylenol for pain. You are on Coumadin sometimes antibiotics can affect the level of your Coumadin you should have that rechecked in 1 to 2 weeks. Disposition Disposition: Home, Self Care
[2021-03-16] MEDS: Penicillin Vk 250 MG Tablet 500 MG PO (21:14)
[2021-03-16 21:15] VITALS: BP 198/113; PULSE 84; RESP 22; O2SAT 93
[2021-03-16 21:25] VITALS: O2SAT 95
== END 2021-03-17 00:48 | disposition home or self-care (01) ==
PROVIDERS: Emergency Provider Emergency Medicine; PCP Internal Medicine; Visit Provider Emergency Medicine
DX: K08.89 Other specified disorders of teeth and supporting structures (principal); E66.9 Obesity, unspecified; Z87.891 Personal history of nicotine dependence
CPT/HCPCS: 99284

== ENCOUNTER 2021-05-16 09:32 | Outpatient (CLI) | payer MEDICARE, MEDICAID, SELFPAY ==
[2021-05-16 10:22] LABS: Absolute Lymphocyte Count 2.41 X10^3/uL (0.83-4.51); Absolute Neutrophil Count 4.7 X10^3/uL (2.0-7.7); Basophil# 0.03 X10^3/uL; Basophil% 0.4 % (0-1); Eosinophil# 0.25 X10^3/uL; Eosinophils% 3.2 % (0-5); Hematocrit 45.5 % (40-54); Hemoglobin 15.3 g/dL (13.0-16.5); Lymphocyte # 2.41 X10^3/ul (0.83-4.51); Lymphocyte % 30.8 % (19-41); Mean Corp Hgb Conc 33.6 g/dL (32-36); Mean Corpuscular Hgb 30.1 pg (27.0-32.0); Mean Corpuscular Volume 89.4 fL (80-94); Mean Platelet Vol. 11.3 fl (6.2-12.0); Monocyte# 0.44 X10^3/uL; Monocyte% 5.6 % (0-10); NRBC Flagged by Analyzer 0 % (0-5); Neutrophil # 4.66 X10^3/uL (2.7-7.7); Neutrophil % 59.6 % (47-70); Platelet Count 173 K/mm3 (150-450); RBC Distribution Width CV 14.7 % (11.6-14.6); RBC Distribution Width SD 48.1 fl (35.1-43.9); Red Blood Count 5.09 M/mm3 (4.6-6.2); White Blood Count 7.8 K/mm3 (4.4-11.0)
[2021-05-16 10:53] LABS: Hemoglobin A1c 6.2 % (3.8-5.6)
[2021-05-16 10:54] LABS: Vitamin D,25 Hydroxy 37.4 ng/mL
[2021-05-16 11:18] LABS: ALB/GLOB Ratio 0.8 RATIO (0.9-2.4); AST(SGOT) 16 U/L (15-37); Alanine Aminotransfer ALT/SGPT 28 U/L (16-61); Albumin, Serum 3.1 g/dL (3.2-5.0); Alkaline Phosphatase 75 U/L (45-117); Anion Gap 6 (5-15); BUN 21 mg/dL (7-18); Chloride 107 mmol/L (98-107); Cholesterol 174 mg/dL (200); EST Glomerular Filtration Rate 122 mL/min (>60); Est Glom Filt Rate - Afr Amer 148 mL/min (>60); Glucose 145 mg/dL (74-106); High Density Lipoprotein 41 mg/dL; Potassium 3.8 mmol/L (3.5-5.1); Protein, Total 7.1 g/dL (6.4-8.2); Sodium Level 140 mmol/L (136-145); Thyroid Stim Hormone (TSH) 1.82 uIU/mL (0.358-3.74); Triglycerides 216 mg/dL; Very Low Density Lipoprotein 43 mg/dL (5-40)
[2021-05-16 13:48] LABS: Bacteria 0 SEEN /hpf (None Seen); Mucous, Urine 0 SEEN /hpf (<or=2+); Red Blood Cells-Urine 0 SEEN /hpf (0-5); White Blood Cells 0 SEEN /hpf (0-5)
[2021-05-16 14:23] LABS: Color, Urine Yellow (Yellow); Glucose, Dipstick 1000 mg/dl (Normal); Ketone-Dipstick Negative (Negative); Leukocyte Esterase-Dipstick Negative /ul (Negative); Nitrite-Dipstick Negative (Negative); Occult Blood-Urine Negative /ul (Negative); Protein-Dipstick Negative (Negative); Specific Gravity, Urine 1.015 (1.002-1.030); Urine Bilirubin Dipstick Negative (Negative); Urine Clarity Clear (Clear); Urine Urobilinogen Normal (Normal)
[2021-05-16 14:33] LABS: Squamous Epithelial Cells - UA 0-5 SEEN /hpf (0-5)
[2021-05-16 14:49] LABS: Microalbumin,Random Urine < 5.0 mg/L (NO RANGE EST.)
== END 2021-05-16 23:59 | disposition home or self-care (01) ==
LOC: LAB 09:36
PROVIDERS: PCP Internal Medicine; Visit Provider Internal Medicine
DX: E11.9 Type 2 diabetes mellitus without complications (principal); E55.9 Vitamin D deficiency, unspecified
CPT/HCPCS: 36415; 80053; 80061; 81001; 82043; 82306; 82570; 83036; 84443; 85025

== ENCOUNTER 2021-11-04 12:53 | Observation (INO) | payer MEDICARE, MEDICAID, SELFPAY ==
[2021-11-04 12:54] VITALS: BP 153/94; PULSE 71; RESP 16; TEMP 36.3; O2SAT 92; BMI 55.6
--- NOTE | 2021-11-04 13:17 | EKG12_ITS ---
Test Reason : Blood Pressure : / mmHG Vent. Rate : 076 BPM Atrial Rate : 076 BPM P-R Int : 134 ms QRS Dur : 076 ms QT Int : 400 ms P-R-T Axes : 038 065 033 degrees QTc Int : 450 ms Normal sinus rhythm Low voltage QRS Cannot rule out Anterior infarct , age undetermined Abnormal ECG Confirmed by HORACIO RODRIGUEZ, TRI ([id number]), editor & co founder JUNIOR BELTRE ([id number]) on 11/06/2021 8:35:48 AM Referred By: Confirmed By:TRI LEONARD MD
--- NOTE | 2021-11-04 13:20 | EDS_ITS ---
HPI History of Present Illness Chief Complaint: Weakness Narrative Narrative: Patient presents with weakness. In fact he has no issues except that his left ran out of batteries and his review engineer and thus his family cannot lift him out of bed for basic functions like toiletries, he said he is starting developed some skin breakdown in his elbows and buttocks. Otherwise he has no other symptoms. [facility] Medical History Cerebral palsy Hyperlipidemia Hypertension Home Medications atenolol 25 mg tablet 25 mg PO BID blood pressure 08/12/14 [History Last Taken 11/04/21] pravastatin 40 mg tablet 40 mg PO QHS cholesterol lowering 08/12/14 [History Last Taken 11/03/21] tamsulosin 0.4 mg capsule 0.4 mg PO BID urine flow 01/11/17 [History Last Taken 11/04/21] baclofen 20 mg tablet 40 mg PO BID spasms 05/16/19 [History Last Taken 11/04/21] lisinopril 40 mg tablet 40 mg PO BID bp 05/16/19 [History Last Taken 11/04/21] warfarin 1 mg tablet 2 mg PO DAILY BLOOD THINNER 11/17/19 [History Last Taken 11/03/21] L.acidophil,salivari-Bifido bifidum-Strep thermoph 175 mg capsule (Acidophilus Probiotic Blend) 1 cap PO QHS 11/04/21 [History Last Taken 11/03/21] ascorbic acid (vitamin C) 1,000 mg tablet 1 g PO BID 11/04/21 [History Last Taken 11/04/21] cholecalciferol (vitamin D3) 125 mcg (5,000 unit) tablet (Vitamin D3) 125 mcg PO DAILY 11/04/21 [History Last Taken 11/04/21] citalopram 20 mg tablet 20 mg PO QHS depression 11/04/21 [History Last Taken 11/03/21] coconut oil 1,000 mg capsule 1,000 mg PO DAILY 11/04/21 [History Last Taken 3 Weeks Ago ~10/14/21] cyanocobalamin (vitamin B-12) 2,500 mcg sublingual tablet (Vitamin B-12) 2,500 mcg sublingual DAILY 11/04/21 [History Last Taken 11/04/21] guaifenesin 400 mg tablet (Mucus Relief) 400 mg PO DAILY 11/04/21 [History Last Taken 11/04/21] hydrocodone-acetaminophen 5-325mg 5mg-325mg 1 tab PO Q6H PRN Pain 11/04/21 [History Last Taken 10/31/21] magnesium 250 mg tablet 250 mg PO DAILY 11/04/21 [History Last Taken 11/03/21] melatonin 10 mg tablet 10 mg PO QHS 11/04/21 [History Last Taken 11/03/21] multivit,calc,mins-folic 240 mcg-vit K1 30 mcg-lycopene 300 mcg tablet (One Daily [facility]) 1 tab PO DAILY 11/04/21 [History Last Taken 11/04/21] omeprazole 40 mg capsule,delayed release 40 mg PO DAILY 11/04/21 [History Last Taken 11/04/21] warfarin 5 mg tablet 5 mg PO DAILY blood thinner 11/04/21 [History Last Taken 11/03/21] zinc 50 mg capsule 50 mg PO DAILY supplement 11/04/21 [History Last Taken 11/04/21] Allergy/AdvReac Type Severity Reaction Status Date / Time No Known Allergies Allergy Verified 11/04/21 12:59 Surgical History History of cholecystectomy Social History Smoking Status: Former smoker ROS ROS ED ROS Narrative Past medical history: Reviewed, include cerebral palsy, hypertension, hyperlipidemia, history of UTIs and thromboembolic disease, hyponatremia, hypokalemia Medications: Reviewed Social history: Lives at home with family who cares for him Review of systems: All systems negative except as indicated General: No fever. Generalized weakness that is unchanged from baseline Eyes: No visual changes ENT: No upper airway congestion, normal voice Neck: No neck pain Cardiovascular: No chest pain Respiratory: No shortness of breath or cough Gastrointestinal: No abdominal pain, nausea vomiting or diarrhea Genitourinary: No dysuria Musculoskeletal: Denies myalgias no difficulty with ambulation Skin: Feels like he has some skin breakdown. Neurological: No memory loss, confusion or any focal weakness Psych: No recent behavioral changes Hematologic: No easy bleeding or easy bruising EXAM Physical Exam Narrative Exam Narrative: Physical exam General: Patient appears relatively comfortable in the bed, CP features present Head: Normocephalic, Atraumatic Eyes: Conjunctiva not pale ENT: Moist mucous membranes. No signs of dehydration Neck: Supple, Nontender, No lymphadenopathy Cardiovascular: Regular rate, Regular rhythm Respiratory: No distress, CTA bilaterally Abdomen: Soft, obese, nontender Back: Nontender, Normal Inspection. Negative for: CVA tenderness Extremities: Some lower extremity weakness which is generalized and nonfocal. Trace bilateral lower extremity edema Skin: Normal color, No rash Neurological: Alert, no gross focal deficits Const Vital Signs: 11/04/21 12:54 11/04/21 13:10 11/04/21 14:53 Temperature 97.4 F L Temperature Source Temporal Pulse Rate 71 84 Respiratory Rate 16 Respiratory Pattern Normal Blood Pressure 153/94 H 155/95 H Blood Pressure Mean 113 115 Pulse Ox 92 93 Oxygen Delivery Method Room Air Room Air MDM MDM MDM Narrative Medical decision making narrative: Patient is medically clear he has need of a different house for the next few days we are in the process of getting him to [facility], social work is working on that. If unable he will have to be admitted. Lab Data Labs: Laboratory Results - last 24 hr 11/04/21 11/04/21 13:30 13:30 WBC 9.2 RBC 4.94 Hgb 15.8 Hct 46.1 MCV 93.3 MCH 32.0 MCHC 34.3 RDW Std Deviation 50.4 H RDW Coeff of Ajson 14.7 H Plt Count 159 MPV 11.7 Immature Gran % (Auto) 0.400 Neut % (Auto) 72.2 H Lymph % (Auto) 18.2 L Bowie % (Auto) 5.5 Eos % (Auto) 3.4 Baso % (Auto) 0.3 Absolute Neuts (auto) 6.7 Absolute Lymphs (auto) 1.68 Nucleated RBC % 0 Sodium 143 Potassium 3.6 Chloride 107 Carbon Dioxide 26.0 Anion Gap 10 BUN 13 Creatinine 0.70 Estim Creat Clear Calc 95.14 Est GFR (MDRD) Af Amer 149 Est GFR (MDRD) Non-Af 123 BUN/Creatinine Ratio 18.7 Glucose 212 H Calcium 8.7 Total Bilirubin 1.00 AST 19 ALT 35 Alkaline Phosphatase 72 Total Protein 7.0 Albumin 3.1 L Globulin 3.9 Albumin/Globulin Ratio 0.8 L Radiography Diagnostic Testing: Clinical Impression(s) from Imaging Studies Chest X-Ray 11/04/21 13:40 IMPRESSION: 1. Moderate cardiomegaly 2. The left lower lobe is obscured by the enlarged heart. The visualized lung gonzalez are clear Electronically Signed: Javi Hoffman MD at 14:19 EDT , Discharge Plan Triage Chief Complaint: Weakness ED Provider: Dann Ayala Dx/Rx/DC Orders Clinical Impression: Cerebral palsy, Weakness Prescriptions: No Action pravastatin 40 MG tablet 40 mg PO QHS Label Comments: cholesterol atenolol 25 MG tablet 25 mg PO BID Label Comments: blood pressure tamsulosin 0.4 MG capsule 0.4 mg PO BID Label Comments: bladder baclofen 20 MG tablet 40 mg PO BID lisinopril 40 MG tablet 40 mg PO BID warfarin 1 MG tablet 2 mg PO DAILY ascorbic acid (vitamin C) 1,000 mg Tablet 1 g PO BID cyanocobalamin (vitamin B-12) [Vitamin B-12] 2,500 mcg Tablet, Sublingual 2,500 mcg SUBLINGUAL DAILY hydrocodone-acetaminophen [Verdigre] 5-325 mg Tablet 1 tab PO Q6H PRN (Reason: Pain) omeprazole 40 mg Capsule,Delayed Release(Dr/Ec) 40 mg PO DAILY magnesium 250 mg Tablet 250 mg PO DAILY guaifenesin [Mucus Relief] 400 mg Tablet 400 mg PO DAILY zinc 50 mg Capsule 50 mg PO DAILY L.acidoph,saliva-B.bif-S.therm [Acidophilus Probiotic Blend] 175 mg Capsule 1 cap PO QHS cholecalciferol (vitamin D3) [Vitamin D3] 125 mcg (5,000 unit) Tablet 125 mcg PO DAILY melatonin 10 mg Tablet 10 mg PO QHS coconut oil 1,000 mg Capsule 1,000 mg PO DAILY multivit,calc,prg-FH-S7-lycop [One Daily [facility]] 240 mcg-30 mcg- 300 mcg Tablet 1 tab PO DAILY citalopram 20 mg tablet 20 mg PO QHS Label Comments: TAKE 1 TABLET BY MOUTH ATLBEDTIMEY warfarin 5 mg tablet 5 mg PO DAILY Label Comments: TAKE 1 TABLET BY MOUTHCONCE DAILY DIRECTED Primary Care Provider: Maribell Haley Referrals: Maribell Haley, [Primary Care Provider] - Disposition Disposition: Acute Care Hospital
[2021-11-04 13:39] LABS: Absolute Lymphocyte Count 1.68 X10^3/uL (0.83-4.51); Absolute Neutrophil Count 6.7 X10^3/uL (2.0-7.7); Basophil# 0.03 X10^3/uL; Basophil% 0.3 % (0-1); Eosinophil# 0.31 X10^3/uL; Eosinophils% 3.4 % (0-5); Hematocrit 46.1 % (40-54); Hemoglobin 15.8 g/dL (13.0-16.5); Lymphocyte # 1.68 X10^3/ul (0.83-4.51); Lymphocyte % 18.2 % (19-41); Mean Corp Hgb Conc 34.3 g/dL (32-36); Mean Corpuscular Volume 93.3 fL (80-94); Mean Platelet Vol. 11.7 fl (6.2-12.0); Monocyte# 0.51 X10^3/uL; Monocyte% 5.5 % (0-10); NRBC Flagged by Analyzer 0 % (0-5); Neutrophil # 6.65 X10^3/uL (2.7-7.7); Neutrophil % 72.2 % (47-70); Platelet Count 159 K/mm3 (150-450); RBC Distribution Width CV 14.7 % (11.6-14.6); RBC Distribution Width SD 50.4 fl (35.1-43.9); Red Blood Count 4.94 M/mm3 (4.6-6.2); White Blood Count 9.2 K/mm3 (4.4-11.0)
--- NOTE | 2021-11-04 13:40 | RAD_ITS ---
STUDY: X-RAY CHEST REASON FOR EXAM: Male, 61 years old. progressive weakness over last several weeks TECHNIQUE: 2 AP portable view of the chest. The images are under penetrated. COMPARISON: November 18, 2019 FINDINGS: The left lower lobe is obscured by the cardiac silhouette. The visualized aspects of the left upper lobe are clear. The right lung is clear. The heart is moderately enlarged. There is no demonstrated pleural abnormality. Normal mediastinum and cassidy. Normal visualized pulmonary arteries. There is atherosclerotic tortuosity of the aortic arch and descending thoracic aorta. There are diffuse degenerative changes of the visualized thoracic spine. Normal visualized ribs, clavicles, and shoulders. There is no demonstrated abnormality of the visualized soft tissue structures of the upper abdomen. RAD/Chest 1 View (Portable) IMPRESSION: 1. Moderate cardiomegaly 2. The left lower lobe is obscured by the enlarged heart. The visualized lung gonzalez are clear Electronically Signed: Javi Hoffman MD at 14:19 EDT ,
[2021-11-04 13:56] LABS: ALB/GLOB Ratio 0.8 RATIO (0.9-2.4); AST(SGOT) 19 U/L (15-37); Alanine Aminotransfer ALT/SGPT 35 U/L (16-61); Albumin, Serum 3.1 g/dL (3.2-5.0); Alkaline Phosphatase 72 U/L (45-117); Anion Gap 10 (5-15); BUN 13 mg/dL (7-18); BUN/Creat Ratio 18.7 RATIO (10-20); Calcium,Total 8.7 mg/dL (8.5-10.1); Chloride 107 mmol/L (98-107); EST Glomerular Filtration Rate 123 mL/min (>60); Est Glom Filt Rate - Afr Amer 149 mL/min (>60); Estimated Creatinine Clearance 95.14 ml/min; Globulin 3.9 g/dL (2.2-4.2); Glucose 212 mg/dL (74-106); Potassium 3.6 mmol/L (3.5-5.1); Sodium Level 143 mmol/L (136-145)
[2021-11-04 14:53] VITALS: BP 155/95; PULSE 84; O2SAT 93
--- NOTE | 2021-11-04 15:49 | CM.ED ---
Addendum entered by Christina Ramos 11/04/21 17:52: BREANA spoke to patient and his Renetta. said that there is no guarantee the battery will be there on Thursday. Patient said that it can be installed Thursday but I am not sure if it is this Thursday or Next Thursday. SW asked patient to clarify when the new battery for his henrique can be installed. said that they need home health. SW advised patient is being admitted so she can speak to staff upstairs about that. Christina Chambers Original Note: BREANA Note SW was advised by that patient is here for respite. BREANA met with patient and his , Renetta. She said that the battery for his Henrique gave out and she can't lift him or take him home. Renetta said that patient needs respite and she [facility] Renetta said that their [facility] social work manager, Tisha Jacinto [phone] said to come to the ED for respite and it would be arranged. Renetta said that patient has been in bed since Thursday. BREANA provided Renetta with list of [facility]. BREANA called Madina at [facility]. She said that a patient can get respite if it is a safety issue. She said that they would do respite under [facility]. Madina said that they need half-way authorization but from [facility] is just has to be submitted not approved. BREANA did careport referral to [facility] and [facility]. BREANA was advised by [facility] that they did not get clinicals. BRE[facility]. BERANA updated family. Renetta was not there. Patient said he wants to go to [facility]CU as he has been there 3 times in the past. BREANA called [facility]. No skillable needs. BREANA spoke to patient. He has no social work manager/shoe caser. He reports that he was diagnosed with CP prior to age 24. BREANA updated patient that he can NOT go to TCU as he has no skillable need. BREANA updated CM Business Solutions Analyst and SW lead. Christina Ramos
[2021-11-04 16:12] VITALS: BP 161/80; PULSE 87; O2SAT 95
--- NOTE | 2021-11-04 18:00 | CASEMGMT ---
Social Work Collaboration with ED BREANA Nolan. this date regarding patient's presentation to the ED and post hospital stay needs. Attempted to complete respite request via the [employer] system for a 14 day or less stay, however hospitals are not granted permission to request respite stays. This web content writer called the [facility] agency on aging and spoke with Maddy. Request has to be placed through [employer], so unable to paper request a respite stay for patient. Spoke with Madina at [facility]. Madina looked at [employer] as well, and appears to have ability to request a respite stay but unable to admit patient until further review results are back, which is the same scenario for hospital in that due to patient's diagnosis will trip to the next level II review through the [place] [employer] ([facility]YA) due to diagnosis of CP and functional impact on life. Madina reports once PASRR is back and sent notification to [facility] for NF admission. This web content writer completed PASRR request via the [employer] system. PASRR is being sent to a level II review through the ANAYA. Patient cannot be moved to a NF until the results are back for NF admission. Handoff to social staff worker covering acute floor. [facility] sent [facility] to [facility]. PLAN: Pending NF placement due to not having available services in the home at this time to safely care for patient. Patient cannot be moved to NF until PASRR results are back. -HOLA Azul, ANGELES
[2021-11-04 18:13] VITALS: BP 160/92; PULSE 87; RESP 18; O2SAT 91
--- NOTE | 2021-11-04 18:17 | PCM.HP.STD ---
Documented by User: Bonnie Sanders NP, PHARMACY COORDINATOR-C 11/04/21 18:32 HPI - General General Date of Admission: 11/04/21 Date of Service: 11/04/21 Chief Complaint: Broken lift chair, debility. HPI Narrative EMILY FERNÁNDEZ, is a 61 M who presents to the Emergency Room due to broken left chair with chronic debility. Patient states his lift chair battery will not charge. He is not able to complete basic activities of daily living due to lift chair malfunction. Patient lives at home with his . He has a history of chronic severe debility due to cerebral palsy. He denies other recent illness or ongoing symptoms or complaints. His states he does have some areas of redness under his abdominal fold which she has been treating with a steroid and antifungal cream. Patient has a past medical history of C. difficile colitis, cerebral palsy, chronic lymphedema, hypertension, hyperlipidemia, BPH, GERD, depression, history of DVT/PE, morbid obesity, KAYLEIGH. [facility] Medical History Cerebral palsy Hyperlipidemia Hypertension Home Medications atenolol 25 mg tablet 25 mg PO BID blood pressure 08/12/14 [History Last Taken 11/04/21] pravastatin 40 mg tablet 40 mg PO QHS cholesterol lowering 08/12/14 [History Last Taken 11/03/21] tamsulosin 0.4 mg capsule 0.4 mg PO BID urine flow 01/11/17 [History Last Taken 11/04/21] baclofen 20 mg tablet 40 mg PO BID spasms 05/16/19 [History Last Taken 11/04/21] lisinopril 40 mg tablet 40 mg PO BID bp 05/16/19 [History Last Taken 11/04/21] warfarin 1 mg tablet 2 mg PO DAILY BLOOD THINNER 11/17/19 [History Last Taken 11/03/21] L.acidophil,salivari-Bifido bifidum-Strep thermoph 175 mg capsule (Acidophilus Probiotic Blend) 1 cap PO QHS 11/04/21 [History Last Taken 11/03/21] ascorbic acid (vitamin C) 1,000 mg tablet 1 g PO BID 11/04/21 [History Last Taken 11/04/21] cholecalciferol (vitamin D3) 125 mcg (5,000 unit) tablet (Vitamin D3) 125 mcg PO DAILY 11/04/21 [History Last Taken 11/04/21] citalopram 20 mg tablet 20 mg PO QHS depression 11/04/21 [History Last Taken 11/03/21] coconut oil 1,000 mg capsule 1,000 mg PO DAILY 11/04/21 [History Last Taken 3 Weeks Ago ~10/14/21] cyanocobalamin (vitamin B-12) 2,500 mcg sublingual tablet (Vitamin B-12) 2,500 mcg sublingual DAILY 11/04/21 [History Last Taken 11/04/21] guaifenesin 400 mg tablet (Mucus Relief) 400 mg PO DAILY 11/04/21 [History Last Taken 11/04/21] hydrocodone-acetaminophen 5-325mg 5mg-325mg 1 tab PO Q6H PRN Pain 11/04/21 [History Last Taken 10/31/21] magnesium 250 mg tablet 250 mg PO DAILY 11/04/21 [History Last Taken 11/03/21] melatonin 10 mg tablet 10 mg PO QHS 11/04/21 [History Last Taken 11/03/21] multivit,calc,mins-folic 240 mcg-vit K1 30 mcg-lycopene 300 mcg tablet (One Daily NephroGenex) 1 tab PO DAILY 11/04/21 [History Last Taken 11/04/21] omeprazole 40 mg capsule,delayed release 40 mg PO DAILY 11/04/21 [History Last Taken 11/04/21] warfarin 5 mg tablet 5 mg PO DAILY blood thinner 11/04/21 [History Last Taken 11/03/21] zinc 50 mg capsule 50 mg PO DAILY supplement 11/04/21 [History Last Taken 11/04/21] Allergy/AdvReac Type Severity Reaction Status Date / Time No Known Allergies Allergy Verified 11/04/21 12:59 Family History other other (Denies maternal/paternal medical history including cardiac history.) Surgical History History of cholecystectomy History of hip surgery Surgical History unable to obtain unable to obtain Social History (Updated 11/04/21 @ 18:21 by Bonnie Sanders NP, PHARMACY COORDINATOR-C) household members: spouse Smoking Status: Former smoker alcohol intake: never substance use type: does not use ROS Constitutional Constitutional: Reports weakness; Denies change in weight, chills, fatigue or fever(s) Cardiovascular Cardiovascular: Denies chest pain, edema, lightheadedness, palpitations or syncope Respiratory/Chest Respiratory/Chest: Denies cough, dyspnea, productive cough, shortness of breath at rest, shortness of breath with exertion or wheezing Gastrointestinal Gastrointestinal: Denies abdominal pain, constipation, diarrhea, nausea or vomiting Genitourinary Genitourinary: Denies burning urination, difficulty urinating, dysuria, hematuria, urinary frequency, urinary incontinence or urinary urgency Musculoskeletal Musculoskeletal: Reports other Details: Chronic weakness/contractures secondary to cerebral palsy. ; Denies back pain, joint pain or muscle weakness Integumentary Integumentary: Denies erythema, lesions, rash or wounds Neurologic Neurologic: Denies abnormal speech, confusion, dizziness, focal weakness, numbness, paresthesias, seizure-like activity or syncope Psychiatric Psychiatric: Denies anxiety or depression Hematologic/Lymphatic Hematologic/Lymphatic: Denies anemia, easy bleeding or easy bruising Allergic/Immunologic Allergic/Immunologic: Denies hives or asthma Vital Signs Vital Signs Vital Signs: 11/04/21 12:54 11/04/21 13:10 11/04/21 14:53 Temperature 97.4 F L Temperature Source Temporal Pulse Rate 71 84 Respiratory Rate 16 Respiratory Pattern Normal Blood Pressure 153/94 H 155/95 H Blood Pressure Mean 113 115 Pulse Ox 92 93 Oxygen Delivery Method Room Air Room Air 11/04/21 16:12 11/04/21 18:13 Temperature Temperature Source Pulse Rate 87 87 Respiratory Rate 18 Respiratory Pattern Blood Pressure 161/80 H 160/92 H Blood Pressure Mean 107 114 Pulse Ox 95 91 Oxygen Delivery Method Room Air Room Air Weight Weight: 324 lb 1.272 oz Body Mass Index (BMI) 55.6 Physical Exam Const alert and oriented x3 Nutritional Appearance: obese HEENT normocephalic and moist oral mucous membranes Eyes PERRL, EOMs intact bilaterally and conjunctivae normal Neck no lymphadenopathy Resp normal respiratory effort and clear to auscultation bilaterally Cardio regular rate, regular rhythm and no murmurs Peripheral Pulses: pulses 2+ throughout GI normal to inspection, nondistended, normoactive bowel sounds, non-tender and non-distended Extremity normal to inspection Extremity Narrative: 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 Skin no rashes or lesions noted Lesions: no lesions Rashes: no rashes Trauma: no lacerations or abrasions Neuro CN's II-XII intact bilaterally, no focal motor deficits, no sensory deficits noted and deep tendon reflexes 2+ bilaterally Psych mental status grossly normal and affect normal Results Lab / Micro Data Result Diagrams: 11/04/21 13:30 11/04/21 13:30 Labs: Laboratory Results - last 24 hr 11/04/21 13:30: WBC 9.2, RBC 4.94, Hgb 15.8, Hct 46.1, MCV 93.3, MCH 32.0, MCHC 34.3, RDW Std Deviation 50.4 H, RDW Coeff of Jason 14.7 H, Plt Count 159, MPV 11.7, Immature Gran % (Auto) 0.400, Neut % (Auto) 72.2 H, Lymph % (Auto) 18.2 L, Maries % (Auto) 5.5, Eos % (Auto) 3.4, Baso % (Auto) 0.3, Absolute Neuts (auto) 6.7, Absolute Lymphs (auto) 1.68, Nucleated RBC % 0 11/04/21 13:30: Sodium 143, Potassium 3.6, Chloride 107, Carbon Dioxide 26.0, Anion Gap 10, BUN 13, Creatinine 0.70, Estim Creat Clear Calc 95.14, Est GFR (MDRD) Af Amer 149, Est GFR (MDRD) Non-Af 123, BUN/Creatinine Ratio 18.7, Glucose 212 H, Calcium 8.7, Total Bilirubin 1.00, AST 19, ALT 35, Alkaline Phosphatase 72, Total Protein 7.0, Albumin 3.1 L, Globulin 3.9, Albumin/Globulin Ratio 0.8 L Radiology Impression Chest X-Ray 11/04/21 13:40 IMPRESSION: 1. Moderate cardiomegaly 2. The left lower lobe is obscured by the enlarged heart. The visualized lung gonzalez are clear Electronically Signed: Javi Hoffman MD at 14:19 EDT Reading Location ID and State: [facility] / [place] , Service support , Assessment & Plan Assessment/Plan (1) Cerebral palsy: PLAN: Plan 1. Debility, weakness secondary to cerebral palsy-lift chair broke at home complicating care. Patient unable to perform basic activities of daily living without home equipment. PT/OT. Case management consult. 2. History of severe C. difficile colitis in 2016 following antibiotic treatment for UTI. 3. KAYLEIGH-continue CPAP. 4.?Chronic lymphedema-Quique wrap bilateral lower extremities.? Patient has lymphedema pumps at home. 5. Hypertension-stable, continue home lisinopril, atenolol regimen. 6. Hyperlipidemia-continue statin. 7. BPH-continue home Flomax regimen. 8. GERD-continue PPI. 9. Depression-continue home Celexa regimen. 10. 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 11. Morbid obesity-Encourage diet modifications. DVT prophylaxis- Coumadin This patient was seen by CARLOS Bucio under the supervision of Dr. Coker. Time spent examining patient, reviewing data and subsequent management of care: 24 minutes Documented by User: Dr. José Miguel Coker, 11/04/21 22:18 HPI - General General Date of Admission: 11/04/21 [facility] Medical History Cerebral palsy Hyperlipidemia Hypertension Home Medications atenolol 25 mg tablet 25 mg PO BID blood pressure 08/12/14 [History Last Taken 11/04/21] pravastatin 40 mg tablet 40 mg PO QHS cholesterol lowering 08/12/14 [History Last Taken 11/03/21] tamsulosin 0.4 mg capsule 0.4 mg PO BID urine flow 01/11/17 [History Last Taken 11/04/21] baclofen 20 mg tablet 40 mg PO BID spasms 05/16/19 [History Last Taken 11/04/21] lisinopril 40 mg tablet 40 mg PO BID bp 05/16/19 [History Last Taken 11/04/21] warfarin 1 mg tablet 2 mg PO DAILY BLOOD THINNER 11/17/19 [History Last Taken 11/03/21] L.acidophil,salivari-Bifido bifidum-Strep thermoph 175 mg capsule (Acidophilus Probiotic Blend) 1 cap PO QHS 11/04/21 [History Last Taken 11/03/21] ascorbic acid (vitamin C) 1,000 mg tablet 1 g PO BID 11/04/21 [History Last Taken 11/04/21] cholecalciferol (vitamin D3) 125 mcg (5,000 unit) tablet (Vitamin D3) 125 mcg PO DAILY 11/04/21 [History Last Taken 11/04/21] citalopram 20 mg tablet 20 mg PO QHS depression 11/04/21 [History Last Taken 11/03/21] coconut oil 1,000 mg capsule 1,000 mg PO DAILY 11/04/21 [History Last Taken 3 Weeks Ago ~10/14/21] cyanocobalamin (vitamin B-12) 2,500 mcg sublingual tablet (Vitamin B-12) 2,500 mcg sublingual DAILY 11/04/21 [History Last Taken 11/04/21] guaifenesin 400 mg tablet (Mucus Relief) 400 mg PO DAILY 11/04/21 [History Last Taken 11/04/21] hydrocodone-acetaminophen 5-325mg 5mg-325mg 1 tab PO Q6H PRN Pain 11/04/21 [History Last Taken 10/31/21] magnesium 250 mg tablet 250 mg PO DAILY 11/04/21 [History Last Taken 11/03/21] melatonin 10 mg tablet 10 mg PO QHS 11/04/21 [History Last Taken 11/03/21] multivit,calc,mins-folic 240 mcg-vit K1 30 mcg-lycopene 300 mcg tablet (One Daily NephroGenex) 1 tab PO DAILY 11/04/21 [History Last Taken 11/04/21] omeprazole 40 mg capsule,delayed release 40 mg PO DAILY 11/04/21 [History Last Taken 11/04/21] warfarin 5 mg tablet 5 mg PO DAILY blood thinner 11/04/21 [History Last Taken 11/03/21] zinc 50 mg capsule 50 mg PO DAILY supplement 11/04/21 [History Last Taken 11/04/21] Allergy/AdvReac Type Severity Reaction Status Date / Time No Known Allergies Allergy Verified 11/04/21 12:59 Family History other Surgical History History of cholecystectomy History of hip surgery Surgical History unable to obtain Social History (Updated 11/04/21 @ 18:21 by Bonnie Sanders PHARMACY COORDINATOR, PHARMACY COORDINATOR-C) household members: spouse Smoking Status: Former smoker alcohol intake: never substance use type: does not use Results Lab / Micro Data Result Diagrams: 11/04/21 13:30 11/04/21 13:30 Assessment & Plan Assessment/Plan (1) Cerebral palsy: Charges/Coding Addendum Addendum: Patient was seen and examined independently of Bonnie Sanders today, he came to the ER at the direction of his home nursing service due to a broken Henrique left which she has at home. Patient has cerebral palsy and depends on the left to move him out of bed. ER was not able to obtained another Hori lift for the patient and he had to be placed into observation status overnight until medical equipment could be arranged for the patient. On examination he appeared in good health and spirits, patient was in no distress, patient has morbid obesity. Vital signs as documented. Skin warm and dry and without overt rashes. Neck without JVD, neck was supple, trachea midline, thyroid was normal. Lungs clear bilaterally, normal air movement was noted. Heart exam notable for regular rhythm, normal sounds and absence of murmurs, rubs or gallops. Abdomen unremarkable and without evidence of organomegaly, masses, or abdominal aortic enlargement. Bowel sounds are present, abdomen is not distended. Extremities nonedematous, no cyanosis was noted, no clubbing was noted. Neuro: Cranial nerves II through XII are grossly intact, sensation to light touch and pinprick intact Psych: Patient is alert and oriented x3, he does not appear anxious or depressed, he does not appear agitated. Impression: #1 chronic debility secondary to cerebral palsy-again patient will be placed in observation status, arrangements will have to be made for the patient to have medical equipment placed to his home prior to discharge. #2 essential hypertension-patient will remain on his current medications #3 morbid obesity-complicates care, recovery, management, prognosis #4 chronic depression-patient is on Lexapro #5 use of chronic anticoagulants-patient is on warfarin chronically, this will be continued I have reviewed Bonnie Sanders's history and physical including her medical assessment and plan of care with the above additions endorse it. Total clinical time spent by myself addressing the patient's medical issues, reviewing the data, and collaborating with patient's care team: 40-minutes Visit Charges OBSV E&M: 74442 Initial observation care L2
[2021-11-04 19:05] VITALS: BP 165/95; PULSE 89; RESP 20; TEMP 37.1; O2SAT 92
[2021-11-04 19:45] VITALS: BP 150/96; PULSE 67; RESP 20; TEMP 36.3; O2SAT 92
[2021-11-04 19:53] VITALS: BMI 54.5
[2021-11-04] MEDS: Atenolol 25 MG Tablet PO (22:55)
[2021-11-04] MEDS: Pravastatin 40 MG Tablet PO (22:55)
[2021-11-04] MEDS: Lisinopril 40 MG Tablet PO (22:55)
[2021-11-04] MEDS: MELATONIN 10 MG TABLET PO (22:55)
[2021-11-04] MEDS: Baclofen 10 MG Tablet 40 MG PO (22:55)
[2021-11-04] MEDS: Citalopram 20 MG Tablet PO (22:55)
[2021-11-04] MEDS: Tamsulosin HCl 0.4 MG Capsule PO (22:55)
[2021-11-05] MEDS: Menthol/Lanolin/Calamine/Znox 113 GM Tube 1 APPLIC TOPICAL ×3 (01:13→20:50)
[2021-11-05] MEDS: Nystatin Powder 15gm Bottle 1 APPLIC TOPICAL ×4 (01:13→20:50)
[2021-11-05 01:45] VITALS: BP 143/72; PULSE 73; RESP 20; TEMP 36.7; O2SAT 94
[2021-11-05 04:50] LABS: Absolute Lymphocyte Count 1.52 X10^3/uL (0.83-4.51); Absolute Neutrophil Count 8.1 X10^3/uL (2.0-7.7); Basophil# 0.02 X10^3/uL; Basophil% 0.2 % (0-1); Eosinophil# 0.29 X10^3/uL; Eosinophils% 2.8 % (0-5); Hematocrit 47.8 % (40-54); Hemoglobin 15.8 g/dL (13.0-16.5); Lymphocyte # 1.52 X10^3/ul (0.83-4.51); Lymphocyte % 14.4 % (19-41); Mean Corp Hgb Conc 33.1 g/dL (32-36); Mean Corpuscular Hgb 31.3 pg (27.0-32.0); Mean Corpuscular Volume 94.7 fL (80-94); Mean Platelet Vol. 11.4 fl (6.2-12.0); Monocyte# 0.59 X10^3/uL; Monocyte% 5.6 % (0-10); NRBC Flagged by Analyzer 0 % (0-5); Neutrophil # 8.07 X10^3/uL (2.7-7.7); Neutrophil % 76.7 % (47-70); Platelet Count 155 K/mm3 (150-450); RBC Distribution Width CV 14.8 % (11.6-14.6); Red Blood Count 5.05 M/mm3 (4.6-6.2); White Blood Count 10.5 K/mm3 (4.4-11.0)
[2021-11-05 04:59] LABS: International Normalized Ratio 2.3; Prothrombin Time (Protime)PT. 24.9 SECONDS (11.7-14.9)
[2021-11-05 05:09] LABS: Anion Gap 9 (5-15); BUN 12 mg/dL (7-18); BUN/Creat Ratio 20.9 RATIO (10-20); Calcium,Total 8.7 mg/dL (8.5-10.1); Chloride 108 mmol/L (98-107); Creatinine, Serum 0.58 mg/dL (0.70-1.30); EST Glomerular Filtration Rate 154 mL/min (>60); Est Glom Filt Rate - Afr Amer 186 mL/min (>60); Estimated Creatinine Clearance 114.83 ml/min; Glucose 148 mg/dL (74-106); Potassium 3.6 mmol/L (3.5-5.1); Sodium Level 142 mmol/L (136-145)
[2021-11-05 08:50] VITALS: BP 164/92; PULSE 67; RESP 16; TEMP 37.1; O2SAT 95
[2021-11-05] MEDS: Baclofen 10 MG Tablet 40 MG PO ×2 (09:00→20:50)
[2021-11-05] MEDS: Pantoprazole Sodium 40 MG Tablet PO (09:00)
[2021-11-05] MEDS: Atenolol 25 MG Tablet PO ×2 (09:00→20:50)
[2021-11-05] MEDS: Tamsulosin HCl 0.4 MG Capsule PO ×2 (09:00→20:51)
[2021-11-05] MEDS: Lisinopril 40 MG Tablet PO ×2 (09:00→20:51)
--- NOTE | 2021-11-05 09:56 | CASEMGMT ---
Social Work Spoke with Madina at [facility]. Patient can be accepted intermediate level of care to [facility] when necessary paperwork in place. -HOLA Azul, INSTALLATION TECH
--- NOTE | 2021-11-05 11:55 | CASEMGMT ---
NIKA CM in to discuss LEO form with patient. RN CM explained LEO form, patient voiced understanding. Pt signed form and filed in chart. Pt provided with a copy of signed LEO form. Patient had no further questions or concerns at this time.
--- NOTE | 2021-11-05 12:46 | CM.ED ---
BREANA received call from estefani at [facility]. They can take patient. BREANA updated BREANA Wisdom, on MS3. Christina SIMENTAL
--- NOTE | 2021-11-05 13:11 | PN.HOSP_ITS ---
Documented by User: Bonnie Sanders TREE TAPPING LABORER, TREE TAPPING LABORER-C 11/05/21 13:12 Subjective Subjective No new complaints. Requesting to go home with lift chair as fixed. Unclear when he will obtain new battery. No other symptoms or complaints Objective Data Objective Data Vital Signs: Vital Signs Temp Pulse Resp BP Pulse Ox O2 Del Method O2 Flow Rate 98.7 F 67 16 164/92 H 95 Nasal Cannula 2 11/05/21 08:50 11/05/21 08:50 11/05/21 08:50 11/05/21 08:50 11/05/21 08:50 11/05/21 09:13 11/05/21 11:08 Oxygen Flow Rate (L/min) 2 Oxygen Delivery Method Nasal Cannula Weight: 317 lb 7.45 oz Body Mass Index (BMI) 54.5 Intake & Output: Intake and Output for Last 24 Hours 11/03/21 11/04/21 11/05/21 23:59 23:59 23:59 Intake Total 400 / 400 Output Total 675 / 675 Balance -275 / -275 Lab / Micro Data Result Diagrams: 11/05/21 04:42 11/05/21 04:42 Labs: Laboratory Results - last 24 hr 11/04/21 13:30: WBC 9.2, RBC 4.94, Hgb 15.8, Hct 46.1, MCV 93.3, MCH 32.0, MCHC 34.3, RDW Std Deviation 50.4 H, RDW Coeff of Jason 14.7 H, Plt Count 159, MPV 11.7, Immature Gran % (Auto) 0.400, Neut % (Auto) 72.2 H, Lymph % (Auto) 18.2 L, Cuming % (Auto) 5.5, Eos % (Auto) 3.4, Baso % (Auto) 0.3, Absolute Neuts (auto) 6.7, Absolute Lymphs (auto) 1.68, Nucleated RBC % 0 11/04/21 13:30: Sodium 143, Potassium 3.6, Chloride 107, Carbon Dioxide 26.0, Anion Gap 10, BUN 13, Creatinine 0.70, Estim Creat Clear Calc 95.14, Est GFR (MDRD) Af Amer 149, Est GFR (MDRD) Non-Af 123, BUN/Creatinine Ratio 18.7, Glucose 212 H, Calcium 8.7, Total Bilirubin 1.00, AST 19, ALT 35, Alkaline Phosp hatase 72, Total Protein 7.0, Albumin 3.1 L, Globulin 3.9, Albumin/Globulin Ratio 0.8 L 11/05/21 04:42: WBC 10.5, RBC 5.05, Hgb 15.8, Hct 47.8, MCV 94.7 H, MCH 31.3, MCHC 33.1, RDW Std Deviation 51.0 H, RDW Coeff of Jason 14.8 H, Plt Count 155, MPV 11.4, Immature Gran % (Auto) 0.300, Neut % (Auto) 76.7 H, Lymph % (Auto) 14.4 L, Cuming % (Auto) 5.6, Eos % (Auto) 2.8, Baso % (Auto) 0.2, Absolute Neuts (auto) 8.1 H, Absolute Lymphs (auto) 1.52, Nucleated RBC % 0 11/05/21 04:42: PT 24.9 H, INR 2.3 11/05/21 04:42: Sodium 142, Potassium 3.6, Chloride 108 H, Carbon Dioxide 25.0, Anion Gap 9, BUN 12, Creatinine 0.58 L, Estim Creat Clear Calc 114.83, Est GFR (MDRD) Af Amer 186, Est GFR (MDRD) Non-Af 154, BUN/Creatinine Ratio 20.9 H, Glucose 148 H, Calcium 8.7 Radiography Diagnostic Testing: Radiology Impression Chest X-Ray 11/04/21 13:40 IMPRESSION: 1. Moderate cardiomegaly 2. The left lower lobe is obscured by the enlarged heart. The visualized lung gonzalez are clear Electronically Signed: Javi Hoffman MD at 14:19 EDT Reading Location ID and State: [facility] / [place] , Service support , Physical Exam Const alert and oriented x3 Nutritional Appearance: obese HEENT normocephalic and moist oral mucous membranes Eyes PERRL, EOMs intact bilaterally and conjunctivae normal Neck no lymphadenopathy Resp clear to auscultation bilaterally Auscultation: diminished lung sounds Cardio regular rate, regular rhythm and no murmurs Peripheral Pulses: pulses 2+ throughout GI normal to inspection, nondistended, normoactive bowel sounds, non-tender and non-distended Extremity normal to inspection Skin no rashes or lesions noted Lesions: no lesions Rashes: no rashes Trauma: no lacerations or abrasions Neuro CN's II-XII intact bilaterally, no focal motor deficits, no sensory deficits noted and deep tendon reflexes 2+ bilaterally Neuro Narrative: 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 Psych mental status grossly normal and affect normal Assessment & Plan Assessment/Plan (1) Cerebral palsy: PLAN: Plan 1. Debility, weakness secondary to cerebral palsy-lift chair broke at home complicating care.? Patient unable to perform basic activities of daily living without home equipment.? PT/OT.? Case management consult. 2. History of severe C. difficile colitis in 2016 following antibiotic treatment for UTI. 3. KAYLEIGH-continue CPAP. 4.?Chronic lymphedema-Quique wrap bilateral lower extremities.? Patient has lymphedema pumps at home. 5. Hypertension-stable, continue home lisinopril, atenolol regimen. 6. Hyperlipidemia-continue statin. 7. BPH-continue home Flomax regimen. 8. GERD-continue PPI. 9. Depression-continue home Celexa regimen. 10. 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 11. Morbid obesity-Encourage diet modifications. DVT prophylaxis- Coumadin This patient was seen by CARLOS Bucio under the supervision of Dr. Vidal. Time spent examining patient, reviewing data and subsequent management of care: 12 minutes Documented by User: Dr. Dian Vidal MD 11/05/21 13:43 Objective Data Lab / Micro Data Result Diagrams: 11/05/21 04:42 11/05/21 04:42 Assessment & Plan Assessment/Plan (1) Cerebral palsy: Charges/Coding Addendum Addendum: This patient was seen in conjunction with Keith Marshall NP. I have independently interviewed and examined the patient and reviewed pertinent historical, laboratory, and other data. I have reviewed her note and concur with her documentation Patient was seen and examined. He denied any new complaints. No acute events overnight, discussed with social studies department chair, awaiting on discharge to nursing home facility versus awaiting patient's assistant store leader to his Henrique lift to be replaced. Physical Exam: Gen: Comfortable, not pale, not jaundiced, morbidly obese, on 2 L of oxygen CVS:HS I +II, regular, no murmurs RESP: Diminished at lung bases GI: BS present and normal, soft, nontender, no palpable organs EXT:No edema ASSESSMENT: 1. Acute on chronic debility 2. Morbid obesity 3. Cerebral palsy 4. KAYLEIGH on CPAP 5. Hypertension 6. Hyperlipidemia 7. BPH 8. GERD 9. Depression 10. H/o DVT/PE 11. Chronic lymphedema Plan: Meds reviewed, continue home medication Time spent coordinating all aspects of patient's care, discussing with nursin minutes Visit Charges OBSV E&M: [id number] Subsequent observation care L2
[2021-11-05 14:15] VITALS: BP 149/87; PULSE 77; RESP 18; TEMP 37.1; O2SAT 95
[2021-11-05 14:30] VITALS: O2SAT 88
[2021-11-05 14:32] VITALS: O2SAT 95
--- NOTE | 2021-11-05 15:09 | CASEMGMT ---
Discharge Tree Pruner Tisha walsh video production assistant reached out to [facility] to cancel referral. Plan: [facility], When appropriate paperwork obtained. Tisha Valdivia Discharge Tree Pruner
--- NOTE | 2021-11-05 15:09 | CASEMGMT ---
Social Work SW submitted additional paperwork through [facility] to the Department of DD for a level II determination. SW met with pt in room and introduced self and role of SW. With pt permission, pt Justice called on speaker phone and discharge conversation held with SW, pt and justice. Pt has a Sit to Stand lift at home Through [employer] but all three batteries are and the lift has not been working correctly. [employer] will be making a service call to pt home on 11/07 and bring new batteries as well as service the lift. One of pt's aid services has informed pt and that they will no longer be providing services to pt resulting in a lack of coverage for home care for pt and pt's is unable to care for pt by her self. Pt continues to have an aid 11-04 and 10-24. With the cessation of the other company pt has no evening coverage and no weekend coverage. Pt's states that pts Direction Associate Professor Of Engineering Reynaldonoreen Ruffinnolberto is working on finding additional aid services but this has not been secured at this time. Pt and do not feel pt can return home at this time due to the broken lift and the aid shortage. Even if lift is fixed on , the gap in aid coverage is still a problem and therefore pt will still need to go to detention. BREANA explained that both [facility] and [facility] accept pt. Pt choosing to go to [facility]. BREANA also explained that discharge is delayed as a level II determination is needed from the Department of DD prior to discharge. Pt and expressing understanding. Plan: [facility], pending Level II determination from Department of DD RON Stauffer
--- NOTE | 2021-11-05 15:40 | CASEMGMT ---
Social Work reji WOLFE and Department of DD has made Level II determination and pt has been approved for 14 day respite stay. Determination faxed to [facility] and VM left with Madina. Precert will now need to be obtained from [facility]. Pt updated and states he will inform his . Plan: [facility], pending insurance precert RON Stauffer
[2021-11-05] MEDS: Jantoven 2 MG Tablet PO (17:04)
[2021-11-05 20:15] VITALS: BP 153/78; PULSE 79; RESP 18; TEMP 36.6; O2SAT 94
[2021-11-05] MEDS: MELATONIN 10 MG TABLET PO (20:51)
[2021-11-05] MEDS: Pravastatin 40 MG Tablet PO (20:51)
[2021-11-05] MEDS: Citalopram 20 MG Tablet PO (20:51)
[2021-11-06 02:10] VITALS: BP 155/77; PULSE 65; RESP 18; TEMP 36.6; O2SAT 95
[2021-11-06] MEDS: Nystatin Powder 15gm Bottle 1 APPLIC TOPICAL ×2 (05:38→12:44)
[2021-11-06] MEDS: Lisinopril 40 MG Tablet PO (07:56)
[2021-11-06] MEDS: Tamsulosin HCl 0.4 MG Capsule PO (07:56)
[2021-11-06] MEDS: Atenolol 25 MG Tablet PO (07:56)
[2021-11-06] MEDS: Baclofen 10 MG Tablet 40 MG PO (07:56)
[2021-11-06] MEDS: Menthol/Lanolin/Calamine/Znox 113 GM Tube 1 APPLIC TOPICAL (07:57)
[2021-11-06] MEDS: Pantoprazole Sodium 40 MG Tablet PO (07:57)
[2021-11-06 08:10] VITALS: BP 149/105; PULSE 79; RESP 20; TEMP 36.9; O2SAT 93
--- NOTE | 2021-11-06 09:26 | CASEMGMT ---
Discharge Social Service Assistant BREANA Wisdom reached out. Madina at [facility] never got patients clinicals through [facility]. Tisha checked [facility] and reloaded and resubmitted to [facility]. Plan: [facility] Tisha Valdivia Discharge Social Service Assistant
--- NOTE | 2021-11-06 10:09 | CASEMGMT ---
Discharge Applications Project Manager Madina from [facility] reached out. Patient can go to [facility] when medically ready. BREANA Wisdom notified. Plan: [facility] Tisha Valdivia Discharge Applications Project Manager
--- NOTE | 2021-11-06 10:45 | RAD_ITS ---
STUDY: X-RAY CHEST REASON FOR EXAM: Male, 61 years old. Hypoxia TECHNIQUE: Single AP portable view of the chest. COMPARISON: Comparison is made with prior study dated 11/04/2021. FINDINGS: Mild degree of vascular congestion and CHF. There is no demonstrated pleural abnormality. There is moderate cardiac enlargement. Normal mediastinum and cassidy. Normal visualized pulmonary arteries. Normal visualized aortic arch and descending thoracic aorta. There are diffuse degenerative changes of the visualized thoracic spine. Normal visualized ribs, clavicles, and shoulders. There is no demonstrated abnormality of the visualized soft tissue structures of the upper abdomen. RAD/Chest 1 View (Portable) IMPRESSION: Mild degree of vascular congestion and CHF. Electronically Signed: Gt Barajas MD at 11:15 EDT ,
--- NOTE | 2021-11-06 11:40 | TREXTCAR_ITS ---
Diet Diet Order/Speech Therapy: 11/04/21 20:16 Diet: Consistent Carb - Calorie Controlled Food consistency:: Regular Liquid Consistency:: Regular/Thin Dietary Modifications:: Cardiac / Heart Healthy How many daily calories?: 2000 calorie Routine Orders/Code Status Enema Type: Fleetz Enema Frequency: Daily PRN Suppository Type: Dulcolax 10mg Suppository Frequency: Daily PRN O2 Liters per Minute: 2 O2 Frequency: PRN Keep PO Greater than or Equal to (%): 90 Routine Lab Work: - (BMP, CBC, INR in 3 days then repeat weekly.) Code Status: Full Code Wound(s) L. ear: Wound Type: Abrasion Suggestions for Active Care Change Position every (hours): 2 Times a day to sit in chair: 3 Therapies Weight Bearing: Henrique lift Physical Therapy: Eval and Treat Occupational Therapy: Eval and Treat Problem/Diagnosis (1) Cerebral palsy: Status: Chronic Code(s): G80.9 - Cerebral palsy, unspecified Allergies/Procedures Done in Hospital Allergies No Known Allergies Allergy (Verified 11/04/21 12:59) Procedures: None Type of Care/Length of Stay Estimated LOS: Convalescent Care Less Than 30 days Type of Care Needed: Intermediate Rehab Potential: Fair Prognosis: Fair Additional Orders/Day of Discharge H&P will serve as current which was dated: 11/04/21 Day of Discharge: 11/06/21 Dietary and Speech Recommendations Dietitian Recommendations/Changes: Will adjust diet to 2000 calorie/consistent carbohydrate; cardiac diet. Will d/c glucharpal strange with medpass. Discharge Plan Admission Admit Date/Time: 11/04/21 18:34 Primary Reason for Your Visit: Debility Attending Provider: Dian Vidal Primary Care Provider: Maribell Haley Consulting Providers: José Miguel Coker Discharge Orders/Prescriptions Prescriptions: New furosemide 40 mg Tablet 40 mg PO DAILY Qty: 0 0RF nystatin [Nyamyc] 100,000 unit/gram Powder 1 applic topical TID Qty: 0 0RF Protocol: *Topical Application Instructions APPLICATION INSTRUCTIONS: Apply to abdominal folds Continued pravastatin 40 MG tablet 40 mg PO QHS Label Comments: cholesterol atenolol 25 MG tablet 25 mg PO BID Label Comments: blood pressure tamsulosin 0.4 MG capsule 0.4 mg PO BID Label Comments: bladder baclofen 20 MG tablet 40 mg PO BID lisinopril 40 MG tablet 40 mg PO BID warfarin 1 MG tablet 2 mg PO DAILY ascorbic acid (vitamin C) 1,000 mg Tablet 1 g PO BID cyanocobalamin (vitamin B-12) [Vitamin B-12] 2,500 mcg Tablet, Sublingual 2,500 mcg SUBLINGUAL DAILY hydrocodone-acetaminophen 5-325 mg Tablet 1 tab PO Q6H PRN (Reason: Pain) omeprazole 40 mg Capsule,Delayed Release(Dr/Ec) 40 mg PO DAILY magnesium 250 mg Tablet 250 mg PO DAILY guaifenesin [Mucus Relief] 400 mg Tablet 400 mg PO DAILY zinc 50 mg Capsule 50 mg PO DAILY L.acidoph,saliva-B.bif-S.therm [Acidophilus Probiotic Blend] 175 mg Capsule 1 cap PO QHS cholecalciferol (vitamin D3) [Vitamin D3] 125 mcg (5,000 unit) Tablet 125 mcg PO DAILY melatonin 10 mg Tablet 10 mg PO QHS coconut oil 1,000 mg Capsule 1,000 mg PO DAILY multivit,calc,dja-SM-F5-lycop [One Daily [employer]] 240 mcg-30 mcg- 300 mcg Tablet 1 tab PO DAILY citalopram 20 mg tablet 20 mg PO QHS Label Comments: TAKE 1 TABLET BY MOUTH ATLBEDTIMEY warfarin 5 mg tablet 5 mg PO DAILY Label Comments: TAKE 1 TABLET BY MOUTHCONCE DAILY DIRECTED Referrals / Follow Up: Maribell Haley DO [Primary Care Provider] - In 1 Week Disposition Disposition (needs filled in before D/C Order can be placed): [facility]
--- NOTE | 2021-11-06 11:43 | CASEMGMT ---
Social Work Per donn Giles/pamela nurse assistant, COURT is able to accept pt today. Physician updated and pt ready for discharge. SW met with pt and informed and pt agreeable to d/c. With pt permission phone call to pt to update and VM left. RON Stauffer
--- NOTE | 2021-11-06 12:21 | PCM.DC.SUM ---
Documented by User: Bonnie Sanders NP, MACHINE [employer]Y CHECKER-C 11/06/21 12:35 Providers Date of Admission: 11/04/21 Date of Discharge: 11/06/21 Primary Care Physician: Dr. Maribell Haley DO Reason For Visit: DEBILITY, CP Diagnosis Discharge Diagnosis (1) Cerebral palsy: Status: Chronic Code(s): G80.9 - Cerebral palsy, unspecified Medications at Discharge Home Medications atenolol 25 mg tablet 25 mg PO BID blood pressure 08/12/14 pravastatin 40 mg tablet 40 mg PO QHS cholesterol lowering 08/12/14 tamsulosin 0.4 mg capsule 0.4 mg PO BID urine flow 01/11/17 baclofen 20 mg tablet 40 mg PO BID spasms 05/16/19 lisinopril 40 mg tablet 40 mg PO BID bp 05/16/19 warfarin 1 mg tablet 2 mg PO DAILY BLOOD THINNER 11/17/19 L.acidophil,salivari-Bifido bifidum-Strep thermoph 175 mg capsule (Acidophilus Probiotic Blend) 1 cap PO QHS 11/04/21 ascorbic acid (vitamin C) 1,000 mg tablet 1 g PO BID 11/04/21 cholecalciferol (vitamin D3) 125 mcg (5,000 unit) tablet (Vitamin D3) 125 mcg PO DAILY 11/04/21 citalopram 20 mg tablet 20 mg PO QHS depression 11/04/21 coconut oil 1,000 mg capsule 1,000 mg PO DAILY 11/04/21 cyanocobalamin (vitamin B-12) 2,500 mcg sublingual tablet (Vitamin B-12) 2,500 mcg sublingual DAILY 11/04/21 guaifenesin 400 mg tablet (Mucus Relief) 400 mg PO DAILY 11/04/21 hydrocodone-acetaminophen 5-325mg 5mg-325mg 1 tab PO Q6H PRN Pain 11/04/21 magnesium 250 mg tablet 250 mg PO DAILY 11/04/21 melatonin 10 mg tablet 10 mg PO QHS 11/04/21 multivit,calc,mins-folic 240 mcg-vit K1 30 mcg-lycopene 300 mcg tablet (One Daily [employer]) 1 tab PO DAILY 11/04/21 omeprazole 40 mg capsule,delayed release 40 mg PO DAILY 11/04/21 warfarin 5 mg tablet 5 mg PO DAILY blood thinner 11/04/21 zinc 50 mg capsule 50 mg PO DAILY supplement 11/04/21 furosemide 40 mg tablet 40 mg PO DAILY #0 tabs 11/06/21 nystatin 100,000 unit/gram topical powder ([facility]) 1 applic topical TID #0 grams 11/06/21 Hospital Course Operations None Procedures None Summary of Care Provided Hospital Course: Patient is a 61-year-old male admitted 11/04/2021 due to debility with broken left chair. 1. Debility, weakness secondary to cerebral palsy-lift chair broke at home complicating care.? Patient unable to perform basic activities of daily living without home equipment.? PT/OT.? SNF for rehab. 2. History of severe C. difficile colitis in 2016 following antibiotic treatment for UTI. 3. KAYLEIGH-continue CPAP. 4.?Chronic lymphedema-Quique wrap bilateral lower extremities.? Patient has lymphedema pumps at home. Started on Lasix 40mg daily. Trend BMP at SNF. 5. Hypertension-stable, continue home lisinopril, atenolol regimen. 6. Hyperlipidemia-continue statin. 7. BPH-continue home Flomax regimen. 8. GERD-continue PPI. 9. Depression-continue home Celexa regimen. 10. 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 Trend INR. 11. Morbid obesity-Encourage diet modifications. 12. Mild hypoxia-chest x-ray with mild pulmonary vascular congestion. IV Lasix x1. Discharged on Lasix 40 mg daily as noted above for chronic lymphedema. Echocardiogram October 2019 demonstrated an EF of 60%. Physical Exam Const alert and oriented x3 Nutritional Appearance: obese HEENT normocephalic and moist oral mucous membranes Eyes PERRL, EOMs intact bilaterally and conjunctivae normal Neck no lymphadenopathy Resp clear to auscultation bilaterally Auscultation: diminished lung sounds Cardio regular rate, regular rhythm and no murmurs Peripheral Pulses: pulses 2+ throughout GI normal to inspection, nondistended, normoactive bowel sounds, non-tender and non-distended Extremity normal to inspection Chronic lymphedema Skin no rashes or lesions noted Lesions: no lesions Rashes: no rashes Trauma: no lacerations or abrasions Neuro CN's II-XII intact bilaterally, no focal motor deficits, no sensory deficits noted and deep tendon reflexes 2+ bilaterally Neuro Narrative: 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 Psych mental status grossly normal and affect normal Patient seen and examined prior to discharge. Physical assessment as noted above. Patient is stable for discharge with follow up recommendations as noted above. This patient was seen by CARLOS Bucio under the supervision of Dr. Vidal. Time spent examining patient, reviewing data and subsequent management of care: 24 minutes Weight / BMI Weight Weight: 317 lb 7.45 oz Body Mass Index (BMI) 54.5 ABG / Lab / Microbiology Data Result Diagrams: 11/05/21 04:42 11/05/21 04:42 Radiography Diagnostic Testing: Radiology Impression Chest X-Ray 11/06/21 10:45 IMPRESSION: Mild degree of vascular congestion and CHF. Electronically Signed: Gt Barajas MD at 11:15 EDT , Meaningful Use Info Meaningful Use Diagnoses (Choose all that apply): None applicable Discharge Plan Admission Admit Date/Time: 11/04/21 18:34 Primary Reason for Your Visit: Debility Attending Provider: Dian Vidal Primary Care Provider: Maribell Haley Consulting Providers: José Miguel Coker Discharge Orders/Prescriptions Prescriptions: New furosemide 40 mg Tablet 40 mg PO DAILY Qty: 0 0RF nystatin [Nyamyc] 100,000 unit/gram Powder 1 applic topical TID Qty: 0 0RF Protocol: *Topical Application Instructions APPLICATION INSTRUCTIONS: Apply to abdominal folds Continued pravastatin 40 MG tablet 40 mg PO QHS Label Comments: cholesterol atenolol 25 MG tablet 25 mg PO BID Label Comments: blood pressure tamsulosin 0.4 MG capsule 0.4 mg PO BID Label Comments: bladder baclofen 20 MG tablet 40 mg PO BID lisinopril 40 MG tablet 40 mg PO BID warfarin 1 MG tablet 2 mg PO DAILY ascorbic acid (vitamin C) 1,000 mg Tablet 1 g PO BID cyanocobalamin (vitamin B-12) [Vitamin B-12] 2,500 mcg Tablet, Sublingual 2,500 mcg SUBLINGUAL DAILY hydrocodone-acetaminophen 5-325 mg Tablet 1 tab PO Q6H PRN (Reason: Pain) omeprazole 40 mg Capsule,Delayed Release(Dr/Ec) 40 mg PO DAILY magnesium 250 mg Tablet 250 mg PO DAILY guaifenesin [Mucus Relief] 400 mg Tablet 400 mg PO DAILY zinc 50 mg Capsule 50 mg PO DAILY L.acidoph,saliva-B.bif-S.therm [Acidophilus Probiotic Blend] 175 mg Capsule 1 cap PO QHS cholecalciferol (vitamin D3) [Vitamin D3] 125 mcg (5,000 unit) Tablet 125 mcg PO DAILY melatonin 10 mg Tablet 10 mg PO QHS coconut oil 1,000 mg Capsule 1,000 mg PO DAILY multivit,calc,tns-HI-E1-lycop [One Daily [employer]] 240 mcg-30 mcg- 300 mcg Tablet 1 tab PO DAILY citalopram 20 mg tablet 20 mg PO QHS Label Comments: TAKE 1 TABLET BY MOUTH ATLBEDTIMEY warfarin 5 mg tablet 5 mg PO DAILY Label Comments: TAKE 1 TABLET BY MOUTHCONCE DAILY DIRECTED Referrals / Follow Up: Maribell Haley DO [Primary Care Provider] - In 1 Week Disposition Disposition (needs filled in before D/C Order can be placed): Group Home Facility Documented by User: Dr. Dian Vidal MD 11/06/21 14:01 Providers Date of Admission: 11/04/21 Reason For Visit: DEBILITY, CP Diagnosis Discharge Diagnosis (1) Cerebral palsy: Status: Chronic Code(s): G80.9 - Cerebral palsy, unspecified Medications at Discharge Home Medications atenolol 25 mg tablet 25 mg PO BID blood pressure 08/12/14 pravastatin 40 mg tablet 40 mg PO QHS cholesterol lowering 08/12/14 tamsulosin 0.4 mg capsule 0.4 mg PO BID urine flow 01/11/17 baclofen 20 mg tablet 40 mg PO BID spasms 05/16/19 lisinopril 40 mg tablet 40 mg PO BID bp 05/16/19 warfarin 1 mg tablet 2 mg PO DAILY BLOOD THINNER 11/17/19 L.acidophil,salivari-Bifido bifidum-Strep thermoph 175 mg capsule (Acidophilus Probiotic Blend) 1 cap PO QHS 11/04/21 ascorbic acid (vitamin C) 1,000 mg tablet 1 g PO BID 11/04/21 cholecalciferol (vitamin D3) 125 mcg (5,000 unit) tablet (Vitamin D3) 125 mcg PO DAILY 11/04/21 citalopram 20 mg tablet 20 mg PO QHS depression 11/04/21 coconut oil 1,000 mg capsule 1,000 mg PO DAILY 11/04/21 cyanocobalamin (vitamin B-12) 2,500 mcg sublingual tablet (Vitamin B-12) 2,500 mcg sublingual DAILY 11/04/21 guaifenesin 400 mg tablet (Mucus Relief) 400 mg PO DAILY 11/04/21 hydrocodone-acetaminophen 5-325mg 5mg-325mg 1 tab PO Q6H PRN Pain 11/04/21 magnesium 250 mg tablet 250 mg PO DAILY 11/04/21 melatonin 10 mg tablet 10 mg PO QHS 11/04/21 multivit,calc,mins-folic 240 mcg-vit K1 30 mcg-lycopene 300 mcg tablet (One Daily [employer]) 1 tab PO DAILY 11/04/21 omeprazole 40 mg capsule,delayed release 40 mg PO DAILY 11/04/21 warfarin 5 mg tablet 5 mg PO DAILY blood thinner 11/04/21 zinc 50 mg capsule 50 mg PO DAILY supplement 11/04/21 furosemide 40 mg tablet 40 mg PO DAILY #0 tabs 11/06/21 nystatin 100,000 unit/gram topical powder (Nyamyc) 1 applic topical TID #0 grams 11/06/21 ABG / Lab / Microbiology Data Result Diagrams: 11/05/21 04:42 11/05/21 04:42 Discharge Plan Admission Admit Date/Time: 11/04/21 18:34 Primary Reason for Your Visit: Debility Attending Provider: Dian Vidal Primary Care Provider: Maribell Haley Consulting Providers: José Miguel Coker Discharge Orders/Prescriptions Prescriptions: New furosemide 40 mg Tablet 40 mg PO DAILY Qty: 0 0RF nystatin [Nyamyc] 100,000 unit/gram Powder 1 applic topical TID Qty: 0 0RF Protocol: *Topical Application Instructions APPLICATION INSTRUCTIONS: Apply to abdominal folds Continued pravastatin 40 MG tablet 40 mg PO QHS Label Comments: cholesterol atenolol 25 MG tablet 25 mg PO BID Label Comments: blood pressure tamsulosin 0.4 MG capsule 0.4 mg PO BID Label Comments: bladder baclofen 20 MG tablet 40 mg PO BID lisinopril 40 MG tablet 40 mg PO BID warfarin 1 MG tablet 2 mg PO DAILY ascorbic acid (vitamin C) 1,000 mg Tablet 1 g PO BID cyanocobalamin (vitamin B-12) [Vitamin B-12] 2,500 mcg Tablet, Sublingual 2,500 mcg SUBLINGUAL DAILY hydrocodone-acetaminophen 5-325 mg Tablet 1 tab PO Q6H PRN (Reason: Pain) omeprazole 40 mg Capsule,Delayed Release(Dr/Ec) 40 mg PO DAILY magnesium 250 mg Tablet 250 mg PO DAILY guaifenesin [Mucus Relief] 400 mg Tablet 400 mg PO DAILY zinc 50 mg Capsule 50 mg PO DAILY L.acidoph,saliva-B.bif-S.therm [Acidophilus Probiotic Blend] 175 mg Capsule 1 cap PO QHS cholecalciferol (vitamin D3) [Vitamin D3] 125 mcg (5,000 unit) Tablet 125 mcg PO DAILY melatonin 10 mg Tablet 10 mg PO QHS coconut oil 1,000 mg Capsule 1,000 mg PO DAILY multivit,calc,jjb-NF-T3-lycop [One Daily [employer]] 240 mcg-30 mcg- 300 mcg Tablet 1 tab PO DAILY citalopram 20 mg tablet 20 mg PO QHS Label Comments: TAKE 1 TABLET BY MOUTH ATLBEDTIMEY warfarin 5 mg tablet 5 mg PO DAILY Label Comments: TAKE 1 TABLET BY MOUTHCONCE DAILY DIRECTED Referrals / Follow Up: Maribell Haley DO [Primary Care Provider] - In 1 Week Disposition Disposition (needs filled in before D/C Order can be placed): Group Home Facility Charges/Coding Addendum Addendum: This patient was seen in conjunction with Keith Marshall NP.? I have independently interviewed and examined the patient and reviewed pertinent historical, laboratory, and other data. I have reviewed her note and concur with her documentation 61-year-old male with past medical history of cerebral palsy with chronic debility, who uses lift chair at home comes in because his lift chair was broken he was unable to complete his physical activities of daily living due to lift chair malfunction. Patient is resident at home with his . His left chest pressure was said to not charging. Patient was admitted to the regular nursing floor after attempts to get him into a skilled nursing will have his blood sugar replaced was unsuccessful in the ED. social work was consulted. Patient was discharged to [facility] facility. He was noted to require oxygen. Chest x-ray showed vascular congestion likely from fluid overload. He received Lasix 40 mg IV x1. He was continued on Lasix 40 mg daily. He will need repeat blood work within 3 days. Physical Exam: Gen: Comfortable, not pale, not jaundiced, morbidly obese, on 1.5 L of oxygen CVS:HS I +II, regular, no murmurs RESP: Diminished at lung bases GI: BS present and normal, soft, nontender, no palpable organs EXT: Bilateral leg edema +2, present on admission Visit Charges OBSV E&M: 04110 Observation care discharge
[2021-11-06 12:31] LABS: International Normalized Ratio 1.9; Prothrombin Time (Protime)PT. 21.9 SECONDS (11.7-14.9)
[2021-11-06] MEDS: 0.9% Saline Lock 10 ML Syringe IV (12:41)
[2021-11-06] MEDS: Furosemide 40 MG/4 ML Vial IV (12:41)
--- NOTE | 2021-11-06 14:20 | PHA.DC.MR ---
Pharmacy Service has performed discharge medication reconciliation for this patient. The patient's discharge medication list was reviewed for discrepancies and discrepancies were resolved. Home Medications atenolol 25 mg tablet 25 mg PO BID blood pressure 08/12/14 pravastatin 40 mg tablet 40 mg PO QHS cholesterol lowering 08/12/14 tamsulosin 0.4 mg capsule 0.4 mg PO BID urine flow 01/11/17 baclofen 20 mg tablet 40 mg PO BID spasms 05/16/19 lisinopril 40 mg tablet 40 mg PO BID bp 05/16/19 warfarin 1 mg tablet 2 mg PO DAILY BLOOD THINNER 11/17/19 L.acidophil,salivari-Bifido bifidum-Strep thermoph 175 mg capsule (Acidophilus Probiotic Blend) 1 cap PO QHS 11/04/21 ascorbic acid (vitamin C) 1,000 mg tablet 1 g PO BID 11/04/21 cholecalciferol (vitamin D3) 125 mcg (5,000 unit) tablet (Vitamin D3) 125 mcg PO DAILY 11/04/21 citalopram 20 mg tablet 20 mg PO QHS depression 11/04/21 coconut oil 1,000 mg capsule 1,000 mg PO DAILY 11/04/21 cyanocobalamin (vitamin B-12) 2,500 mcg sublingual tablet (Vitamin B-12) 2,500 mcg sublingual DAILY 11/04/21 guaifenesin 400 mg tablet (Mucus Relief) 400 mg PO DAILY 11/04/21 hydrocodone-acetaminophen 5-325mg 5mg-325mg 1 tab PO Q6H PRN Pain 11/04/21 magnesium 250 mg tablet 250 mg PO DAILY 11/04/21 melatonin 10 mg tablet 10 mg PO QHS 11/04/21 multivit,calc,mins-folic 240 mcg-vit K1 30 mcg-lycopene 300 mcg tablet (One Daily [employer]) 1 tab PO DAILY 11/04/21 omeprazole 40 mg capsule,delayed release 40 mg PO DAILY 11/04/21 warfarin 5 mg tablet 5 mg PO DAILY blood thinner 11/04/21 zinc 50 mg capsule 50 mg PO DAILY supplement 11/04/21 furosemide 40 mg tablet 40 mg PO DAILY #0 tabs 11/06/21 nystatin 100,000 unit/gram topical powder (Nyamyc) 1 applic topical TID #0 grams 11/06/21
--- NOTE | 2021-11-06 14:40 | CASEMGMT ---
Social Work SW set up cot transportation for pt via [facility] for 3:30pm. Notified pt nurse and Madina at [facility] of transport/discharge time. Faxed discharge orders to Madina at [facility] via [employer]. Placed copies of orders in pt chart and originals in envelope to go with pt. SW called pt to update on transport time and left message on voicemail. Disposition: [facility], for respite care. RON Valencia
[2021-11-06 14:46] VITALS: BP 152/91; PULSE 74; RESP 20; TEMP 36.7; O2SAT 94
--- NOTE | 2021-11-06 15:09 | CASEMGMT ---
Social Work SW notified pt of discharge time of 3:30. Pt agreeable to discharge to [facility] today. RON Stauffer
--- NOTE | 2021-11-06 16:04 | NURSING ---
Called report to [facility]. Patients IV removed. Belongings sent with him.
[2021-11-06 16:06] VITALS: BP 152/91; PULSE 74; RESP 20; TEMP 36.7; O2SAT 94
[2021-11-06] MEDS: Jantoven 2 MG Tablet PO (17:42)
== END 2021-11-06 19:12 | disposition skilled nursing facility (03) ==
LOC: ED 17:21 → MS3 19:00
PROVIDERS: Nurse Practitioner Family; Admitting Provider Internal Medicine; Emergency Provider Emergency Medicine; PCP Internal Medicine; Visit Provider Internal Medicine
DX: I10 Essential (primary) hypertension (principal); G80.9 Cerebral palsy, unspecified; E66.01 Morbid (severe) obesity due to excess calories; Z68.43 Body mass index [BMI] 50.0-59.9, adult; Z79.01 Long term (current) use of anticoagulants; E78.5 Hyperlipidemia, unspecified; R53.1 Weakness; G47.33 Obstructive sleep apnea (adult) (pediatric); I89.0 Lymphedema, not elsewhere classified; Z87.891 Personal history of nicotine dependence; N40.0 Benign prostatic hyperplasia without lower urinary tract symptoms; F32.A Depression, unspecified; K21.9 Gastro-esophageal reflux disease without esophagitis; Z79.899 Other long term (current) drug therapy; Z86.711 Personal history of pulmonary embolism; Z86.718 Personal history of other venous thrombosis and embolism; R09.02 Hypoxemia
CPT/HCPCS: 36415; 71045; 80048; 80053; 85025; 85610; 87426; 93005; 96374; 97162; 97166; 97802; 99218; 99285; A4216; G0378; J1940

== ENCOUNTER → 2021-11-07 | Outpatient (REF) | payer MEDICARE, MEDICAID, SELFPAY ==
[2021-11-07 09:08] LABS: Hematocrit 50.6 % (40-54); Hemoglobin 16.5 g/dL (13.0-16.5); Mean Corp Hgb Conc 32.6 g/dL (32-36); Mean Corpuscular Hgb 30.7 pg (27.0-32.0); Mean Corpuscular Volume 94.1 fL (80-94); Mean Platelet Vol. 11.7 fl (6.2-12.0); Platelet Count 184 K/mm3 (150-450); RBC Distribution Width CV 14.8 % (11.6-14.6); RBC Distribution Width SD 51.5 fl (35.1-43.9); Red Blood Count 5.38 M/mm3 (4.6-6.2); White Blood Count 8.4 K/mm3 (4.4-11.0)
[2021-11-07 09:19] LABS: International Normalized Ratio 1.9; Prothrombin Time (Protime)PT. 21.2 SECONDS (11.7-14.9)
[2021-11-07 09:31] LABS: Anion Gap 6 (5-15); BUN 20 mg/dL (7-18); BUN/Creat Ratio 28.2 RATIO (10-20); Calcium,Total 9.2 mg/dL (8.5-10.1); Chloride 106 mmol/L (98-107); Creatinine, Serum 0.71 mg/dL (0.70-1.30); EST Glomerular Filtration Rate 121 mL/min (>60); Est Glom Filt Rate - Afr Amer 146 mL/min (>60); Glucose 136 mg/dL (74-106); Potassium 3.7 mmol/L (3.5-5.1); Sodium Level 143 mmol/L (136-145)
== END ==
LOC: OLS.SW1020 07:30
PROVIDERS: PCP Internal Medicine; Visit Provider Family Medicine
DX: N40.0 Benign prostatic hyperplasia without lower urinary tract symptoms (principal); I10 Essential (primary) hypertension; E78.5 Hyperlipidemia, unspecified; Z79.01 Long term (current) use of anticoagulants
CPT/HCPCS: 36415; 80048; 85027; 85610

== ENCOUNTER → 2021-11-14 | Outpatient (REF) | payer MEDICARE, MEDICAID, SELFPAY ==
[2021-11-14 09:05] LABS: Hematocrit 49.6 % (40-54); Hemoglobin 16.3 g/dL (13.0-16.5); Mean Corp Hgb Conc 32.9 g/dL (32-36); Mean Corpuscular Hgb 31.8 pg (27.0-32.0); Mean Corpuscular Volume 96.9 fL (80-94); Mean Platelet Vol. 12.1 fl (6.2-12.0); Platelet Count 180 K/mm3 (150-450); RBC Distribution Width CV 14.3 % (11.6-14.6); RBC Distribution Width SD 51.1 fl (35.1-43.9); Red Blood Count 5.12 M/mm3 (4.6-6.2); White Blood Count 9.5 K/mm3 (4.4-11.0)
[2021-11-14 09:15] LABS: International Normalized Ratio 2.8
[2021-11-14 09:26] LABS: Anion Gap 8 (5-15); BUN 15 mg/dL (7-18); BUN/Creat Ratio 25.9 RATIO (10-20); Calcium,Total 9.2 mg/dL (8.5-10.1); Chloride 105 mmol/L (98-107); Creatinine, Serum 0.58 mg/dL (0.70-1.30); EST Glomerular Filtration Rate 152 mL/min (>60); Est Glom Filt Rate - Afr Amer 184 mL/min (>60); Glucose 157 mg/dL (74-106); Potassium 4.7 mmol/L (3.5-5.1); Sodium Level 137 mmol/L (136-145)
== END ==
LOC: OLS.SW1020 04:00
PROVIDERS: PCP Internal Medicine; Visit Provider Family Medicine
DX: N39.0 Urinary tract infection, site not specified (principal); Z79.01 Long term (current) use of anticoagulants
CPT/HCPCS: 36415; 80048; 85027; 85610

== ENCOUNTER → 2022-07-12 | Outpatient (CLI) | payer MEDICARE, MEDICAID, SELFPAY ==
--- NOTE | 2022-07-12 11:25 | RAD_ITS ---
STUDY: X-RAY - RIGHT KNEE REASON FOR EXAM: Male, 62 years old. PAIN TECHNIQUE: 3 view(s) of the knee. COMPARISON: 09/15/2014. FINDINGS: No acute fracture or dislocation. Severe demineralization for better proportion to patient''s age. Prominent atrophy of the patella and as on the prior exam, cephalad subluxation of the patella is seen. Moderate patellofemoral osteoarthritis. The soft tissue structures are unremarkable. RAD/Knee 3 Views IMPRESSION: No acute fracture or dislocation. Severe demineralization. Electronically Signed: Mario Castillo MD at 23:01 EDT ,
== END | disposition home or self-care (01) ==
LOC: RAD 11:21
PROVIDERS: PCP Internal Medicine; Referring Provider Nurse Practitioner Acute Care; Visit Provider Nurse Practitioner Acute Care
DX: M25.561 Pain in right knee (principal)
CPT/HCPCS: 73562

== ENCOUNTER → 2022-09-15 | Outpatient (CLI) | payer MEDICARE, MEDICAID, SELFPAY ==
[2022-09-15 13:23] LABS: Absolute Lymphocyte Count 1.74 X10^3/uL (0.83-4.51); Absolute Neutrophil Count 5.6 X10^3/uL (2.0-7.7); Basophil# 0.03 X10^3/uL; Basophil% 0.4 % (0-1); Eosinophil# 0.22 X10^3/uL; Eosinophils% 2.7 % (0-5); Hematocrit 47.8 % (40-54); Hemoglobin 15.9 g/dL (13.0-16.5); Lymphocyte # 1.74 X10^3/ul (0.83-4.51); Lymphocyte % 21.5 % (19-41); Mean Corp Hgb Conc 33.3 g/dL (32-36); Mean Corpuscular Hgb 31.7 pg (27.0-32.0); Mean Corpuscular Volume 95.2 fL (80-94); Mean Platelet Vol. 11.5 fl (6.2-12.0); Monocyte# 0.49 X10^3/uL; Monocyte% 6.1 % (0-10); NRBC Flagged by Analyzer 0 % (0-5); Neutrophil # 5.58 X10^3/uL (2.7-7.7); Neutrophil % 68.9 % (47-70); Platelet Count 180 K/mm3 (150-450); RBC Distribution Width CV 14.3 % (11.6-14.6); RBC Distribution Width SD 49.4 fl (35.1-43.9); Red Blood Count 5.02 M/mm3 (4.6-6.2); White Blood Count 8.1 K/mm3 (4.4-11.0)
[2022-09-15 14:01] LABS: Vitamin D,25 Hydroxy 51.6 ng/mL
[2022-09-15 14:08] LABS: ALB/GLOB Ratio 0.8 RATIO (0.9-2.4); AST(SGOT) 24 U/L (15-37); Alanine Aminotransfer ALT/SGPT 41 U/L (16-61); Albumin, Serum 3.2 g/dL (3.2-5.0); Alkaline Phosphatase 76 U/L (45-117); Anion Gap 5 (5-15); BUN 10 mg/dL (7-18); Calcium,Total 8.5 mg/dL (8.5-10.1); Chloride 106 mmol/L (98-107); Cholesterol 175 mg/dL (200); Creatinine, Serum 0.59 mg/dL (0.70-1.30); EST Glomerular Filtration Rate 150 mL/min (>60); Est Glom Filt Rate - Afr Amer 181 mL/min (>60); Glucose 142 mg/dL (74-106); High Density Lipoprotein 47 mg/dL; Potassium 3.9 mmol/L (3.5-5.1); Protein, Total 7.2 g/dL (6.4-8.2); Sodium Level 138 mmol/L (136-145); Thyroid Stim Hormone (TSH) 0.94 uIU/mL (0.358-3.74); Triglycerides 125 mg/dL; Very Low Density Lipoprotein 25 mg/dL (5-40)
== END | disposition home or self-care (01) ==
LOC: LAB 12:41
PROVIDERS: PCP Internal Medicine; Referring Provider Internal Medicine; Visit Provider Internal Medicine
DX: E55.9 Vitamin D deficiency, unspecified (principal); E11.9 Type 2 diabetes mellitus without complications
CPT/HCPCS: 36415; 80053; 80061; 82306; 84443; 85025

== ENCOUNTER → 2023-06-15 | Outpatient (CLI) | payer MEDICARE, MEDICAID, SELFPAY ==
--- NOTE | 2023-06-15 15:13 | RAD_ITS ---
INDICATION: LOW BACK PAIN EXAMINATION/TECHNIQUE: X-RAY - XR Spine Lumbar Min 4 Views COMPARISON: No relevant prior comparison study available FINDINGS: VERTEBRAE: Minimal anterior wedging of T12 vertebra appears to be chronic. No evidence of acute compression fracture deformity. No spondylolisthesis. Preservation of the normal lumbar lordosis. No substantial scoliosis. DISCS: Disc spaces are within normal limits. Endplate spondylosis. INCLUDED ABDOMEN: Included bowel gas pattern is non-obstructive. RAD/L/S Spine Min 4 Views IMPRESSION: Mild degenerative changes. Electronically Signed: Gilbert Dominique MD at 16:11 EDT ,
--- NOTE | 2023-06-15 15:50 | RAD_ITS ---
INDICATION: LEFT KNEE PAIN EXAMINATION/TECHNIQUE: X-RAY - LEFT XR Knee Complete 4 Views or More 4 VIEWS COMPARISON: No relevant prior comparison study available FINDINGS: SOFT TISSUES: No soft tissue swelling or gas. No evidence of joint effusion. BONES/JOINTS: Demineralization of the osseous structures. No evidence of acute fracture or dislocation. High riding patella and narrowing of the patellofemoral joint. Mild narrowing of the medial and lateral joint compartments. No sclerotic or destructive changes observed. RAD/Knee 4 or More Views IMPRESSION: 1. Degenerative arthrosis. 2. Demineralization of the osseous structures. 3. High riding patella. Electronically Signed: Gilbert Dominique MD at 16:16 EDT ,
== END | disposition home or self-care (01) ==
LOC: RAD 15:11
PROVIDERS: PCP Internal Medicine; Referring Provider Anesthesiology Pain Medicine; Visit Provider Anesthesiology Pain Medicine
DX: M54.50 Low back pain, unspecified (principal); M25.562 Pain in left knee
CPT/HCPCS: 72110; 73564

== ENCOUNTER → 2023-08-11 | Outpatient (CLI) | payer MEDICARE, MEDICAID, SELFPAY | END | disposition home or self-care (01) | LOC: SL 19:49 | PROVIDERS: PCP Internal Medicine; Referring Provider Internal Medicine Pulmonary Disease; Visit Provider Internal Medicine Pulmonary Disease | DX: G47.33 Obstructive sleep apnea (adult) (pediatric) (principal) | CPT/HCPCS: 95811 ==

== ENCOUNTER → 2023-12-04 | Outpatient (CLI) | payer MEDICARE, MEDICAID, SELFPAY ==
[2023-12-04 10:28] LABS: Absolute Neutrophil Count 4.5 X10^3/uL (2.0-7.7); Basophil# 0.04 X10^3/uL; Basophil% 0.6 % (0-1); Eosinophil# 0.24 X10^3/uL; Eosinophils% 3.5 % (0-5); Hematocrit 47.3 % (40-54); Hemoglobin 15.9 g/dL (13.0-16.5); Lymphocyte % 23.3 % (19-41); Mean Corp Hgb Conc 33.6 g/dL (32-36); Mean Corpuscular Hgb 31.6 pg (27.0-32.0); Mean Platelet Vol. 11.4 fl (6.2-12.0); Monocyte# 0.43 X10^3/uL; Monocyte% 6.3 % (0-10); NRBC Flagged by Analyzer 0 % (0-5); Neutrophil # 4.52 X10^3/uL (2.7-7.7); Neutrophil % 65.9 % (47-70); Platelet Count 142 K/mm3 (150-450); RBC Distribution Width CV 14.1 % (11.6-14.6); RBC Distribution Width SD 48.5 fl (35.1-43.9); Red Blood Count 5.03 M/mm3 (4.6-6.2); White Blood Count 6.9 K/mm3 (4.4-11.0)
[2023-12-04 10:48] LABS: Vitamin D,25 Hydroxy 46.1 ng/mL
[2023-12-04 11:04] LABS: ALB/GLOB Ratio 0.9 RATIO (0.9-2.4); AST(SGOT) 17 U/L (15-37); Alanine Aminotransfer ALT/SGPT 33 U/L (16-61); Albumin, Serum 3.2 g/dL (3.2-5.0); Alkaline Phosphatase 58 U/L (45-117); Anion Gap 5 (5-15); BUN 14 mg/dL (7-18); BUN/Creat Ratio 22.4 RATIO (10-20); Calcium,Total 8.8 mg/dL (8.5-10.1); Chloride 105 mmol/L (98-107); Cholesterol 209 mg/dL (200); Creatinine, Serum 0.62 mg/dL (0.70-1.30); EST Glomerular Filtration Rate 139 mL/min (>60); Est Glom Filt Rate - Afr Amer 168 mL/min (>60); Globulin 3.4 g/dL (2.2-4.2); Glucose 166 mg/dL (74-106); High Density Lipoprotein 52 mg/dL; PSA,Total - Annual Screen 0.92 ng/mL (0.00-4.00); Protein, Total 6.6 g/dL (6.4-8.2); Sodium Level 140 mmol/L (136-145); Triglycerides 163 mg/dL; Very Low Density Lipoprotein 33 mg/dL (5-40)
[2023-12-04 12:31] LABS: Color, Urine Yellow (Yellow); Glucose, Dipstick Normal (Normal); Ketone-Dipstick Negative (Negative); Leukocyte Esterase-Dipstick Negative /ul (Negative); Nitrite-Dipstick Negative (Negative); Occult Blood-Urine Negative /ul (Negative); Protein-Dipstick Negative (Negative); Specific Gravity, Urine 1.015 (1.002-1.030); Urine Bilirubin Dipstick Negative (Negative); Urine Clarity Clear (Clear); Urine Urobilinogen Normal (Normal)
[2023-12-04 12:51] LABS: Microalbumin:Creatinine Ratio 15.2 mg/g CRE (<30 mg/g CRE)
== END | disposition home or self-care (01) ==
LOC: LAB.FUTURE 09:28
PROVIDERS: PCP Internal Medicine; Referring Provider Internal Medicine; Visit Provider Internal Medicine
DX: E78.00 Pure hypercholesterolemia, unspecified (principal); E11.9 Type 2 diabetes mellitus without complications; E55.9 Vitamin D deficiency, unspecified; Z12.5 Encounter for screening for malignant neoplasm of prostate
CPT/HCPCS: 36415; 80053; 80061; 81002; 82043; 82306; 82570; 84153; 84443; 85025; G0103

== ENCOUNTER → 2024-09-01 | Outpatient (CLI) | payer MEDICARE, MEDICAID, SELFPAY ==
[2024-09-01 13:19] LABS: Hematocrit 48.0 % (40-54); Hemoglobin 16.7 g/dL (13.0-16.5); Immature Granulocytes Count 0.050 X10^3/uL (0.0-0.0); Mean Corp Hgb Conc 34.8 g/dL (32-36); Mean Corpuscular Volume 92.1 fL (80-94); Mean Platelet Vol. 11.5 fl (6.2-12.0); NRBC Flagged by Analyzer 0 % (0-5); Platelet Count 200 K/mm3 (150-450); RBC Distribution Width CV 14.4 % (11.6-14.6); RBC Distribution Width SD 48.7 fl (35.1-43.9); Red Blood Count 5.21 M/mm3 (4.6-6.2); White Blood Count 10.4 K/mm3 (4.4-11.0)
[2024-09-01 15:27] LABS: Cholesterol 196 mg/dL (<=200); Low Density Lipoprotein Calc. 102 mg/dL; Triglycerides 232 mg/dL; Very Low Density Lipoprotein 46 mg/dL (5-40); Vitamin D,25 Hydroxy 43.4 ng/mL (30-100); cholesterol:hdl ratio screen 4.11
[2024-09-01 15:46] LABS: AST(SGOT) 48 U/L (<=37); Alanine Aminotransfer ALT/SGPT 35 U/L (<=46); Albumin, Serum 4.1 g/dL (3.4-4.8); Alkaline Phosphatase 54 U/L (40-129); Anion Gap 14 (5-15); BUN 16 mg/dL (4-19); BUN/Creat Ratio 26.8 RATIO (10-20); Calcium,Total 9.4 mg/dL (7.6-11.0); Carbon Dioxide 23.2 mmol/L (21.0-32.0); Chloride 102 mmol/L (98-108); Globulin 3.2 g/dL (2.2-4.2); Glucose 102 mg/dL (70-99); Potassium 4.5 mmol/L (3.3-5.1)
== END | disposition home or self-care (01) ==
LOC: LAB 11:38
PROVIDERS: PCP Internal Medicine; Referring Provider Internal Medicine; Visit Provider Internal Medicine
DX: E11.9 Type 2 diabetes mellitus without complications (principal); E78.00 Pure hypercholesterolemia, unspecified; E55.9 Vitamin D deficiency, unspecified; Z12.5 Encounter for screening for malignant neoplasm of prostate
CPT/HCPCS: 36415; 80053; 80061; 82306; 84443; 85025